=== PATIENT | male | born 1935 | race Caucasian/White ===

== ENCOUNTER → 2017-11-25 07:44 | Outpatient (CLI) | payer BC, SELFPAY ==
[2017-11-25 09:45] LABS: Alanine Aminotransferase 28 IU/L (21-72); Albumin Globulin Ratio 1.6 (1.0-2.8); Alkaline Phosphatase 47 U/L (38-126); Aspartate Aminotransferase 30 IU/L (17-59); BUN Creatinine Ratio 14.4 (6-22); Bilirubin Total 0.9 mg/dL (0.2-1.3); Blood Urea Nitrogen 13 mg/dL (9-20); Carbon Dioxide 33 mmol/L (22-32); Chloride 104 mmol/L (98-107); Cholesterol 119 mg/dL (140-199); Estimated Glomerular Filt Rate > 60.0 mL/min (>60); Globulin 2.5 g/dL (1.7-4.1); Glucose 89 mg/dL (80-110); HDL Cholesterol 34 mg/dL (40-60); HEMOLYSIS < 15 (0-50); LDL Cholesterol Calculated 67 mg/dL (<100); Potassium 3.9 mmol/L (3.4-5.1); Sodium 144 mmol/L (137-145); Total Protein 6.5 g/dL (6.3-8.2); Triglycerides 92 mg/dL (35-150)
[2017-11-25 10:59] LABS: TSH w/ Reflex to FT4 0.02 uIU/mL (0.47-4.68)
[2017-11-25 11:29] LABS: Free T4, Direct Thyroxine 1.54 ng/dL (0.78-2.19)
== END ==
PROVIDERS: PCP Family Medicine; Visit Provider Family Medicine
DX: I10 Essential (primary) hypertension (principal); E03.9 Hypothyroidism, unspecified; E78.5 Hyperlipidemia, unspecified
CPT/HCPCS: 36415; 80053; 80061; 84439; 84443

== ENCOUNTER → 2018-02-09 14:51 | Outpatient (CLI) | payer BC, SELFPAY ==
--- NOTE | 2018-02-09 14:54 | DI.RAD.S_ITS ---
PROCEDURE: XR RIBS LT MIN 3V W CXR1V INDICATIONS: S/p fall with pain in ribcage TECHNIQUE: 3 views of the left ribs were acquired, along with a single view chest. COMPARISON: [facility], , CHEST 2 VIEW, 05/14/2015, 12:30. FINDINGS: Surgical changes and devices: None. Bones and chest wall: Mildly displaced left sixth rib fracture is present. No suspicious bony lesions. Overlying soft tissues appear unremarkable. Lungs and pleura: There is a right hemidiaphragm elevation. No pleural effusions or pneumothorax. Lungs appear clear. Mediastinum: Mediastinal contours appear normal. Heart size is normal. IMPRESSION: Mildly displaced left sixth rib fracture. Dictated by: Keaton Nicole M.D. on 02/09/2018 at 17:10 Approved by: Keaton Nicole M.D. on 02/09/2018 at 17:12
== END ==
PROVIDERS: PCP Family Medicine; Visit Provider Registered Nurse
DX: S22.32XA Fracture of one rib, left side, initial encounter for closed fracture (principal); R07.81 Pleurodynia; W19.XXXA Unspecified fall, initial encounter
CPT/HCPCS: 71101

== ENCOUNTER → 2018-03-02 11:15 | Outpatient (CLI) | payer BC, SELFPAY ==
[2018-03-02 12:54] LABS: TSH w/ Reflex to FT4 < 0.02 uIU/mL (0.47-4.68)
[2018-03-02 13:19] LABS: Free T4, Direct Thyroxine 1.98 ng/dL (0.78-2.19)
== END ==
PROVIDERS: PCP Family Medicine; Visit Provider Family Medicine
DX: E03.9 Hypothyroidism, unspecified (principal)
CPT/HCPCS: 36415; 84439; 84443

== ENCOUNTER → 2018-04-06 08:45 | Outpatient (CLI) | payer BC, SELFPAY ==
[2018-04-06 10:16] LABS: TSH w/ Reflex to FT4 0.63 uIU/mL (0.47-4.68)
[2018-04-09 17:33] LABS: Testosterone Free 54.1 pg/mL (30.0-135.0); Testosterone Total 529 ng/dL (250-1100)
== END ==
PROVIDERS: PCP Family Medicine; Visit Provider Family Medicine
DX: E03.9 Hypothyroidism, unspecified (principal); N52.9 Male erectile dysfunction, unspecified
CPT/HCPCS: 36415; 84402; 84403; 84443

== ENCOUNTER → 2018-06-03 08:09 | Outpatient (CLI) | payer BC, SELFPAY ==
--- NOTE | 2018-06-03 | DI.US.S_ITS ---
PROCEDURE: US RENAL COMPLETE INDICATIONS: NEOPLASM OF LEFT AND RIGHT KIDNEY TECHNIQUE: Real-time scanning was performed of the kidneys and bladder, with image documentation. COMPARISON: [facility], CT, ABDOMEN W&WO CONTRAST, 03/03/2016, 14:52. [facility], US, RENAL COMPLETE, 02/22/2016, 11:20. [facility], US, RENAL COMPLETE, 08/23/2015, 7:47. [facility], US, RENAL COMPLETE, 09/26/2016, 10:00. [facility], US, RENAL COMPLETE, 07/20/2017, 10:22. FINDINGS: Kidneys: Kidneys are normal in size. Right kidney measures 10.9 cm long; left kidney measures 11.1 cm long. Right renal cortical thickness is 1.7 cm; left renal cortical thickness is 1.6 cm. Renal cortical echotexture is normal. No hydronephrosis or nephrolithiasis. Solid hypoechoic mass involving the anterior midportion of the right kidney unchanged measuring 1.7 x 1.9 x 1.8 cm. Previously visualized subcentimeter mass involving the inferior pole of the left kidney is not definitively identified on today's exam. Bladder: Pre-void bladder volume is 71 mL. Post-void residual is 0 mL. Pre-void images demonstrate no intraluminal masses or stones. On pre-void images, bilateral ureteral jets are noted with color Doppler interrogation. (Of note, ureteral jets may not be detectable in up to 25% of cases due to insufficient differences in specific gravity between ureteral and bladder urine). Miscellaneous: No free pelvic fluid. IMPRESSION: 1. Stable appearance of solid hypoechoic mass involving the right kidney and the previously visualized subcentimeter solid mass involving the left kidney is not definitively seen on today's study. Dictated by: Alvaro Weston [facility] Interpreted: Jean-Paul Vaca MD on 06/03/2018 at 14:31 Approved by: Jean-Paul Vaca M.D. on 06/03/2018 at 15:14
== END ==
PROVIDERS: PCP Family Medicine; Visit Provider Specialist
DX: D49.512 Neoplasm of unspecified behavior of left kidney (principal); D49.511 Neoplasm of unspecified behavior of right kidney
CPT/HCPCS: 76770

== ENCOUNTER → 2019-05-16 11:38 | Outpatient (CLI) | payer BC, SELFPAY ==
[2019-05-16 12:45] LABS: Hematocrit 40.9 % (41-53); Hemoglobin 14.3 g/dL (13.5-17.5); Mean Corpuscular Hemoglobin 32.7 PG (26-34); Mean Corpuscular Volume 93.3 fL (80-100); Platelet Count 204 X10^3/uL (150-400); Red Blood Cell Count 4.38 X10^6/uL (4.5-5.9); White Blood Cell Count 6.5 X10^3/uL (4.5-11.0)
[2019-05-16 12:57] LABS: Neutrophils Absolute Manual 3120 /uL (3000-5900); RBC Morphology Normal Morphology; Total Cells Counted 100
[2019-05-16 13:29] LABS: Alanine Aminotransferase 20 IU/L (<50); Albumin 4.2 g/dL (3.5-5.0); Albumin Globulin Ratio 1.7 (1.0-2.8); Alkaline Phosphatase 48 U/L (38-126); Aspartate Aminotransferase 34 IU/L (17-59); BUN Creatinine Ratio 18.9 (6-22); Bilirubin Total 0.6 mg/dL (0.2-1.3); Blood Urea Nitrogen 17 mg/dL (9-20); Calcium 9.1 mg/dL (8.4-10.2); Carbon Dioxide 30 mmol/L (22-32); Chloride 104 mmol/L (98-107); Cholesterol 109 mg/dL (140-199); Estimated Glomerular Filt Rate > 60.0 mL/min (>60); Globulin 2.5 g/dL (1.7-4.1); Glucose 90 mg/dL (80-110); HDL Cholesterol 31 mg/dL (40-60); HEMOLYSIS < 15 (0-50); LDL Cholesterol Calculated 46 mg/dL (<100); Sodium 139 mmol/L (137-145); Total Protein 6.7 g/dL (6.3-8.2); Triglycerides 162 mg/dL (35-150)
[2019-05-16 14:02] LABS: TSH w/ Reflex to FT4 0.19 uIU/mL (0.47-4.68)
[2019-05-16 14:18] LABS: Vitamin B12 326 pg/mL (239-931)
[2019-05-16 14:28] LABS: Free T4, Direct Thyroxine 1.38 ng/dL (0.78-2.19)
[2019-05-16 16:22] LABS: Vitamin D 25 Hydroxy (D3) 56.3 ng/mL (30.0-100.0)
== END ==
PROVIDERS: PCP Family Medicine; Visit Provider Family Medicine
DX: R41.89 Other symptoms and signs involving cognitive functions and awareness (principal); I10 Essential (primary) hypertension; E55.9 Vitamin D deficiency, unspecified; I25.10 Atherosclerotic heart disease of native coronary artery without angina pectoris; E03.9 Hypothyroidism, unspecified
CPT/HCPCS: 36415; 80053; 80061; 82306; 82607; 84439; 84443; 85025

== ENCOUNTER → 2019-06-13 10:33 | Outpatient (CLI) | payer BC, SELFPAY ==
--- NOTE | 2019-06-13 | DI.US.S_ITS ---
PROCEDURE: US RENAL COMPLETE INDICATIONS: FOLLOWUP ON PRIOR KIDNEY MASSES TECHNIQUE: Real-time scanning was performed of the kidneys and bladder, with image documentation. COMPARISON: [facility], CT, ABDOMEN/PELVIS WITH CONTRAST, 12/06/2013, 7:02. [facility], US, RENAL COMPLETE, 02/22/2016, 11:20. [facility], US, RENAL COMPLETE, 07/20/2017, 10:22. [facility], , US RENAL COMPLETE, 06/03/2018, 8:36. FINDINGS: Kidneys: Kidneys are normal in size. Right kidney measures 9.6 cm long; left kidney measures 10.5 cm long. Right renal cortical thickness is 1.9 cm; left renal cortical thickness is 2.2 cm. Renal cortical echotexture is normal. No hydronephrosis or nephrolithiasis. No significant change in appearance or size of hypoechoic mass involving the right kidney measuring 2.2 x 1.9 x 1.8 cm. Rounded hyper echoic focus involving the cortex of the interpolar left kidney unchanged from prior examinations measuring 0.8 x 0.7 x 0.8 cm. Bladder: Pre-void bladder volume is 96 mL. Post-void residual is 20 mL. Pre-void images demonstrate no intraluminal masses or stones. On pre-void images, bilateral ureteral jets are noted with color Doppler interrogation. (Of note, ureteral jets may not be detectable in up to 25% of cases due to insufficient differences in specific gravity between ureteral and bladder urine). Miscellaneous: No free pelvic fluid. IMPRESSION: 1. No significant interval change in appearance or size of hypoechoic mass involving the right kidney and echogenic focus involving the inferior pole of the left kidney. Dictated by: Alvaro Weston [facility] Interpreted: Aly Montoya MD on 06/13/2019 at 12:07 Approved by: Aly Montoya M.D. on 06/14/2019 at 8:10
== END ==
PROVIDERS: PCP Family Medicine; Referring Provider Specialist; Visit Provider Specialist
DX: N28.9 Disorder of kidney and ureter, unspecified (principal)
CPT/HCPCS: 76770

== ENCOUNTER 2019-06-29 14:30 | Outpatient (RCR) | payer BC, SELFPAY ==
--- NOTE | 2019-05-31 16:51 | ST.OPIE ---
Visit Care Team Role Provider Type Citlalli Daly DO Attending Provider Physician Primary Care Provider Specialty: Family Practice Address: [address] [place] [address], [address], [place], [address] Email: [email or web address] Speech-Language Pathology Initial Evaluation MANAGER HAIR Cognitive/Memory Evaluation Start: 05/30/19 08:37 Freq: Status: Active Protocol: Document 05/31/19 08:37 TYRESE (Rec: 05/30/19 08:51 TYRESE [email or web address]) Evaluation of Cognition Session Time Visit Start Time 12:30 Visit Stop Time 13:30 Total Visit Minutes 60 Visit Information Visit Number Initial Evaluation Plan of Care Dates 05/30/19 - 08/22/19 Next Note Type Next Note Type Treatment Note Referral Referring Physician Dr. Daly Reason for Referral Cognitive decline Evaluation Assessment Type Cognitive-Linguistic Past Medical History Patient History This pleasant 84-yr-old male, who goes by RollCall ([email or web address]), attended memory screening on 05/17/19 provided at [facility] with this MANAGER HAIR. He c/o decline in memory primarily related to name recall. Most notably, however, he had an episode where he pulled into a gas station he does not typically use and could not recall what to do to put gas in his car. He drove away, then recalled steps, and filled his car at a different gas station. He reported this was an isolated incident and that he has had no other episodes of confusion ; however, this single episode is of great concern to him. During screening, the pt scored 17/30 on SLUMS screening tool, which is consistent with dementia. Outpatient treatment was recommended and orders received. Hearing Hearing Level Impaired Auditory History Pt has noticed steady decline over the past several years. 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 - Informal Assessment Receptive Language Normal Yes Expressive Language Normal Yes Articulation Normal Yes Formal Assessment Standardized Test Scales of Cognitive Communication Assessment Administration Complete Raw Score 84 Percentile Rank 12 Results SCAN Index: 78 Degree of Severity: Mild Oral Expression 100% Orientation 100% Memory 63% Speech Comprehension 100% Reading Comprehension 92% Writing 100% Attention 81% Problem Solving 87% - Cognition - Memory - Findings Cognitive/Memory Impressions Mild cognitive communication impairment primarily in areas of short-term/working memory, consistent with pt complaints. Treatment Goals Short Term Goals 1. The pt will collaborate with MANAGER HAIR to determine modifications to functional environment to increase ability to recall important information using external memory tools. 2. The pt will establish and follow routines in 80% of opportunities to reduce misplacement of belongings in his functional environment. 3. The pt will establish and use compensatory/internal memory strategies with 80% acc , min cues to recall information and maintain/ increase independence in completion of ADLs. Care Home Goals 1. Using routines and internal strategies independently as needed, the pt will demonstrate memory for daily activities WFL, as measured by pt/family report and clinical judgment. Total Time Full Evaluation Time 95
--- NOTE | 2019-06-21 17:27 | ST.OPTN ---
Visit Care Team Role Provider Type Citlalli Daly DO Attending Provider Physician Primary Care Provider Address: [address] [place] [address], [facility], [place], [address] FUEL OPERATOR Treatment Note FUEL OPERATOR Treatment Note Start: 05/30/19 08:37 Freq: Status: Active Protocol: Document 06/21/19 17:26 TYRESE (Rec: 06/21/19 17:27 [facility] [email or web address]) Speech Pathology Treatment Note Visit Type Note Type Administrative Note Subjective Observations/Patient Presentation The pt did not appear for his treatment session. He called afterward and apologized for missing and confirmed he would attend next scheduled session .
--- NOTE | 2019-06-29 16:28 | ST.OPTN ---
Visit Care Team Role Provider Type Citlalli Daly DO Attending Provider Physician Primary Care Provider Address: [address] [place] [address], [address], [place], [address] COLOR RECEIVER Treatment Note COLOR RECEIVER Treatment Note Start: 05/30/19 08:37 Freq: Status: Active Protocol: Document 06/29/19 15:19 TYRESE (Rec: 06/29/19 15:26 TYRESE [email or web address]) Speech Pathology Treatment Note Session Time Visit Start Time 14:30 Visit Stop Time 15:15 Total Visit Minutes 45 Visit Information Visit Number 05/20 Plan of Care Dates 05/30/19 - 08/22/19 Insurance Information Federal Setting Treatment Setting Outpatient Care Visit Type Note Type Treatment Note Next Note Type Next Note Type Treatment Note General Information General Information This pleasant 84-yr-old male, who goes by Seeq, attended memory screening on 05/17/19 provided at [facility] with this COLOR RECEIVER. He c/o decline in memory primarily related to name recall. Most notably, however, he had an episode where he pulled into a gas station he does not typically use and could not recall what to do to put gas in his car. He drove away, then recalled steps, and filled his car at a different gas station. He reported this was an isolated incident and that he has had no other episodes of confusion ; however, this single episode is of great concern to him. During screening, the pt scored 17/30 on SLUMS screening tool, which is consistent with dementia. Outpatient treatment was recommended and orders received. Subjective Identification Type Name,ID Card Observations/Patient Presentation Pt arrived on time. He had first gone to the [facility] and was redirected to the clinic. No new complaints. Chief Complaint(s) Cognitive Additional Areas of Concern Memory Patient Knowledge/Awareness of COLOR RECEIVER Role Good in Treatment Objective Short Term Goals 1. The pt will collaborate with COLOR RECEIVER to determine modifications to functional environment to increase ability to recall important information using external memory tools. 2. The pt will establish and follow routines in 80% of opportunities to reduce misplacement of belongings in his functional environment. 3. The pt will establish and use compensatory/internal memory strategies with 80% acc , min cues to recall information and maintain/ increase independence in completion of ADLs. Half-Way Goals 1. Using routines and internal strategies independently as needed, the pt will demonstrate memory for daily activities WFL, as measured by pt/family report and clinical judgment. Treatment Activities Educated pt on assessment results and POC targeting external and internal memory tools and strategies. Pt verbalized agreement. Pt identified calendar, sticky notes at computer, and shopping lists as effective external tools he uses. Identified memory problems including misplacing personal items and recalling last names of friends. He denied word finding difficulties. Initiated establishment of new routines in placing glasses, keys and wallet in designated places to avoid losing them. ( Glasses next to sink by shower ; keys and wallet by phone in kitchen) This was provided to pt in writing. Assessment Patient Response to Treatment Good Rehab Potential Good Impairments Identified Attention,Cognitive-Linguistic Skills,Memory - Short Term, Memory - Working Assessment of Improvement The pt was receptive to education and feedback and participated well in identifying challenges and establishing new routine. Reviewed with Patient Goals,Progress Being Made,Home Exercise Program Patient/Caregiver Understanding Excellent Plan Frequency of Treatment Once a Week Length of Session 45 Minutes Treatment Emphasis Next Session F/U on new external tools; Initiate association strategies Therapeutic Contents Client Education,Cognitive- Linguistic Training,Home Exercise Program Provided Patient/Caregiver Instruction Home Exercise Program,Plan of Care,Questions/Concerns Therapy Recommendations Continue with Current Program
--- NOTE | 2019-07-05 12:56 | ST.OPDS ---
Visit Care Team Role Provider Type Citlalli Daly DO Attending Provider Physician Primary Care Provider Address: [address] [place] [address], [address], [place], [address] FILLER SHAKER Treatment Note FILLER SHAKER Treatment Note Start: 05/30/19 08:37 Freq: Status: Active Protocol: Document 07/05/19 12:47 TYRESE (Rec: 07/05/19 12:56 TYRESE [email or web address]) Speech Pathology Treatment Note Visit Information Plan of Care Dates 05/30/19 - 08/22/19 Insurance Information [facility] Treatment Setting Outpatient Care Visit Type Note Type Discharge Summary General Information General Information This pleasant 84-yr-old male, who goes by [email or web address], attended memory screening on 05/17/19 provided at [facility] with this FILLER SHAKER. He c/o decline in memory primarily related to name recall. Most notably, however, he had an episode where he pulled into a gas station he does not typically use and could not recall what to do to put gas in his car. He drove away, then recalled steps, and filled his car at a different gas station. He reported this was an isolated incident and that he has had no other episodes of confusion ; however, this single episode is of great concern to him. During screening, the pt scored 17/30 on SLUMS screening tool, which is consistent with dementia. Outpatient treatment was recommended and orders received. Subjective Observations/Patient Presentation Pt called clinic and requested to discharge from services. FILLER SHAKER called and talked to pt, who stated he has too many medical appts and associated costs at this time. He was appreciative of information obtained during treatment. Chief Complaint(s) Cognitive Additional Areas of Concern Memory Patient Knowledge/Awareness of FILLER SHAKER Role Good in Treatment Objective Short Term Goals 1. The pt will collaborate with FILLER SHAKER to determine modifications to functional environment to increase ability to recall important information using external memory tools. 2. The pt will establish and follow routines in 80% of opportunities to reduce misplacement of belongings in his functional environment. 3. The pt will establish and use compensatory/internal memory strategies with 80% acc , min cues to recall information and maintain/ increase independence in completion of ADLs. Nuclear Logging Engineer Goals 1. Using routines and internal strategies independently as needed, the pt will demonstrate memory for daily activities WFL, as measured by pt/family report and clinical judgment. Assessment Patient Response to Treatment Good Impairments Identified Attention,Cognitive-Linguistic Skills,Memory - Short Term, Memory - Working Assessment of Improvement Course of treatment included evaluation and one treatment session. His current memory challenges appear to only minimally impact his ADLs. His experience of greatest concern occurred when he became significantly disoriented when at a gas station he does not typically used, to the point that he needed to leave the station and was able to re-orient and use a different gas station. Per pt report that was an isolated incident. All other experiences, such as occasional difficulty recalling names and misplacing items, are typical of natural aging process. Plan Therapy Recommendations Discharge from Speech Therapy
== END 2019-07-07 12:54 ==
LOC: SP 14:30
PROVIDERS: PCP Family Medicine; Visit Provider Family Medicine
DX: R41.89 Other symptoms and signs involving cognitive functions and awareness (principal)
CPT/HCPCS: 96125; 97129; 97130

== ENCOUNTER → 2019-07-21 11:17 | Outpatient (CLI) | payer BC, SELFPAY ==
[2019-07-21 12:49] LABS: TSH w/ Reflex to FT4 3.16 uIU/mL (0.47-4.68)
== END ==
PROVIDERS: PCP Family Medicine; Referring Provider Family Medicine; Visit Provider Family Medicine
DX: E03.9 Hypothyroidism, unspecified (principal)
CPT/HCPCS: 36415; 84443

== ENCOUNTER 2020-02-15 15:22 | Emergency (ER) | payer BC, SELFPAY ==
[2020-02-15] VITALS (11 sets, daily range): BP systolic 116–182; BP diastolic 68–94; PULSE 76–102; RESP 13–29; TEMP 36.4; O2SAT 95–98; BMI 26.5
--- NOTE | 2020-02-15 15:34 | DI.RAD.S_ITS ---
PROCEDURE: XR CHEST 1V INDICATIONS: chest pain TECHNIQUE: One view of the chest was acquired. COMPARISON: [facility], , CHEST 1 VIEW, 03/30/2015, 6:44. [facility], , XR RIBS LT MIN 3V W CXR1V, 02/09/2018, 14:36. [facility], CHEST 2 VIEW, 05/14/2015, 12:30. FINDINGS: Surgical changes and devices: Post CABG changes are seen. Lungs and pleura: On this semiupright portable chest examination, no large pneumothorax or large pleural effusions are seen. No focal infiltrates are seen. Mediastinum: The cardiac contours are within normal limits. The aorta demonstrates calcification and tortuosity. Bones and chest wall: Age-appropriate bony degenerative changes are seen. No suspicious bony lesions. A remote, healed left lateral rib fracture can be seen. Overlying soft tissues appear unremarkable. IMPRESSION: Portable chest within normal limits. Postoperative and degenerative changes are seen. Dictated by: Pietro Gusman M.D. on 02/15/2020 at 15:02 Approved by: Pietro Gusman M.D. on 02/15/2020 at 15:03
[2020-02-15 15:51] LABS: Add Manual Diff / Slide Review NO; Basophils Absolute Auto 100 /uL (0-100); Basophils Percent Auto 0.8 % (0-2); Eosinophils Absolute Auto 200 /uL (0-450); Eosinophils Percent Auto 2.7 % (2-4); Hematocrit 42.6 % (41-53); Hemoglobin 14.6 g/dL (13.5-17.5); Lymphocytes Absolute Auto 2800 /uL (1100-4500); Lymphocytes Percent Auto 31.6 % (25-40); Mean Corpuscular HGB Conc 34.4 % (30-36); Mean Corpuscular Hemoglobin 32.4 PG (26-34); Mean Corpuscular Volume 94.3 fL (80-100); Monocytes Absolute Auto 900 /uL (0-900); Monocytes Percent Auto 10.4 % (3-14); Neutrophils Absolute Auto 4800 /uL (1500-7000); Neutrophils Percent Auto 54.5 % (50-75); Platelet Count 223 X10^3/uL (150-400); Red Blood Cell Count 4.52 X10^6/uL (4.5-5.9); Red Cell Distribution Width 13.5 % (11.6-14.8); White Blood Cell Count 8.8 X10^3/uL (4.5-11.0)
--- NOTE | 2020-02-15 15:58 | PC.NURSE ---
Has been having heart burn for several days, saw PCP and sent to ER for new onset AFIB. Denies chest pain or SOB. Patient states heartburn comes on in the evening and seems to ease up for bedtime.
--- NOTE | 2020-02-15 16:07 | ED.CHESTPAIN ---
HPI - Chest Pain General Chief Complaint: Chest Pain Stated Complaint: new onset AFIB, with heart burn Time Seen by Provider: 02/15/20 15:44 Source: patient Mode of arrival: Wheelchair Limitations: no limitations History of Present Illness HPI narrative: Patient is an 84-year-old male. History of reflux disease sent over by his primary doctor's office for evaluation after he was found to be in new onset AFib. He went to go see his doctor today because he states that for the past 3-4 days in the afternoon between 1600 hours and 2000 hours he was having what he describes as his heartburn. He states that his normal medications were not helping. He states that it resolved at about 0800 hours at night. Does not seem to be associated with eating or position or movement. He went to see his doctor today regarding this. They obtained an EKG and found that he was in atrial fibrillation. His rate was less than 100. Patient denies any chest pain or shortness of breath. Denies any palpitations or lightheadedness. Has never been in atrial fibrillation in the past. He was sent here for further evaluation Related Data Home Medications Medication Instructions Recorded Confirmed cholecalciferol (vitamin D3) 25 1,000 unit PO DAILY 11/24/17 02/15/20 mcg (1,000 unit) capsule aspirin 81 mg tablet,delayed 81 mg PO DAILY 11/14/19 02/15/20 release coenzyme Q10 100 mg capsule 100 mg PO DAILY 01/17/20 02/15/20 krill oil 500 mg capsule mg PO 01/17/20 02/15/20 tamsulosin 0.4 mg capsule 0.8 mg PO BEDTIME 01/25/20 02/15/20 levothyroxine 112 mcg tablet 112 mcg PO tab 02/15/20 02/15/20 Previous Rx's Medication Instructions Recorded esomeprazole magnesium 20 mg 20 mg PO DAILY #90 cap 07/18/19 capsule,delayed release metoprolol succinate 25 mg 25 mg PO DAILY #90 tab 10/18/19 tablet,extended release 24 hr rosuvastatin 20 mg tablet 20 mg PO DAILY #90 tab 11/02/19 hydrocortisone 1 %-iodoquinol 1 % 1 applictn TOP TID #60 gram 11/17/19 topical cream in packet amlodipine 5 mg tablet 5 mg PO DAILY #90 tab 01/17/20 rivaroxaban [Xarelto] 20 mg PO QPM #30 tab 02/15/20 Allergies Allergy/AdvReac Type Severity Reaction Status Date / Time lovastatin [LOVASTATIN] AdvReac Intermediate MUSCLE Verified 02/15/20 14:34 ACHING Review of Systems Constitutional Constitutional: Denies fever(s) and Denies headache(s) ENT Ears, Nose, Mouth, and Throat: Denies headache(s) Cardiovascular Cardiovascular: Denies chest pain, Denies rapid heart rate, Denies irregular heart rhythm, Denies lightheadedness and Denies dyspnea Respiratory Respiratory: Denies dyspnea Gastrointestinal Gastrointestinal: Denies abdominal pain and Denies melena Comments: Reflux disease Genitourinary Genitourinary: Denies dysuria Genitourinary: Denies dysuria Musculoskeletal Musculoskeletal: Denies arthralgias and Denies myalgias Integumentary/Breasts Skin/Breast: Denies rash Neurologic Neurologic: Denies behavioral changes and Denies headache(s) Psychiatric Psychiatric: Denies behavioral changes Hematologic/Lymphatic Hematologic/Lymphatic: Denies easy bleeding and Denies easy bruising Allergic/Immunologic Allergic/Immunologic: Denies urticaria Patient History Medical History Bilateral renal cysts (Acute) CAD (coronary artery disease) (Chronic) Chronic back pain (Chronic ~2005) Hearing deficit (Chronic) Heart attack (Acute) Vision disorder (Chronic) Surgical History Anesthesia (Resolved) History of coronary artery bypass, five (Resolved ~2010) History of knee replacement, total (Resolved ~2005) History of spinal surgery (Resolved ~2007) Family History Father Hypertension Heart disease Social History marital status: Smoking Status: Never smoker alcohol intake: current (1 per day) substance use type: does not use Smoking Status: Never smoker alcohol intake frequency: 0-2 drinks per day Alcohol type: wine Substance Use Type: does not use Exam Initial Vital Signs Initial Vital Signs: Vital Signs Temperature 97.6 F 02/15/20 15:31 Pulse Rate 90 02/15/20 15:31 Respiratory Rate 18 02/15/20 15:31 Blood Pressure 120/68 02/15/20 15:31 Pulse Oximetry 97 02/15/20 15:31 Const General: cooperative and comfortable Limitations: mental status not altered HENMT Head: normal to inspection and normocephalic Resp Effort & Inspection: normal respiratory effort Auscultation: clear to auscultation bilaterally Cardio Rate: regular rate Rhythm: abnormal rhythm Pulses: radial pulses present GI Inspection: non-distended Palpation: soft Skin Lesions: no lesions Rashes: no rashes Neuro General: patient alert and patient awake Cognition: normal cognition Speech: speech normal Extrem General: normal to inspection and capillary refill normal Psych Appearance: grossly normal and well kempt Scores CHADS-VASc Congestive heart failure: no Hypertension: yes Age 75 years or older: yes Diabetes mellitus: no Stroke, TIA, or TE: no Vascular disease: yes Age 65 to 74 years: no Sex category (female): Male CHADS-VASc Score: 4 GCS Spencer coma scale eye opening: Spontaneous Spencer coma scale verbal response: Orientated [place]oa coma scale motor response: Obey commands Cocoa coma scale total score: 15 Course Orders Ordered: ED Orders 02/15/20 15:34 XR chest 1V Stat EKG-12 Lead Stat 02/15/20 15:39 Complete Blood Count AUTO DIFF Stat Comprehensive Metabolic Panel Stat Lipase Stat Partial Thromboplastin Time Stat Prothrombin Time INR Stat Troponin & CK Cardiac Panel Stat 02/15/20 17:48 Troponin I Stat Discontinued Medications Rivaroxaban (Xarelto) 20 mg PO NOW ONE Stop: 02/15/20 18:43 Vital Signs Vital signs: Vital Signs - 8 hr 02/15/20 15:31 02/15/20 15:54 02/15/20 16:00 Temperature 97.6 F Pulse Rate 90 89 82 Respiratory Rate 18 20 13 Blood Pressure 120/68 122/72 Pulse Oximetry 97 96 97 02/15/20 16:30 02/15/20 17:00 02/15/20 17:30 Temperature Pulse Rate 84 78 102 H Respiratory Rate 25 H 19 24 Blood Pressure 135/71 118/74 Pulse Oximetry 95 96 98 02/15/20 17:31 02/15/20 18:00 02/15/20 18:01 Temperature Pulse Rate 88 76 81 Respiratory Rate 29 H 19 17 Blood Pressure 182/94 H 119/73 Pulse Oximetry 97 98 97 MDM - Chest Pain Lab Data Attestation: I reviewed the patient's lab results. Result diagrams: 02/15/20 15:39 02/15/20 15:39 Labs: Lab Results 02/15/20 02/15/20 02/15/20 Range/Units 15:39 15:39 15:39 WBC 8.8 (4.5-11.0) X10^3/uL RBC 4.52 (4.5-5.9) X10^6/uL Hgb 14.6 (13.5-17.5) g/dL Hct 42.6 (41-53) % MCV 94.3 (80-100) fL MCH 32.4 (26-34) PG MCHC 34.4 (30-36) % RDW 13.5 (11.6-14.8) % Plt Count 223 (150-400) X10^3/uL Neut % (Auto) 54.5 (50-75) % Lymph % (Auto) 31.6 (25-40) % Brooke % (Auto) 10.4 (3-14) % Eos % (Auto) 2.7 (2-4) % Baso % (Auto) 0.8 (0-2) % Neut # (Auto) 4800 (0060-6261) /uL Lymph # (Auto) 2800 (4663-1330) /uL Brooke # (Auto) 900 (0-900) /uL Eos # (Auto) 200 (0-450) /uL Baso # (Auto) 100 (0-100) /uL PT 12.2 (10.1-12.7) SECONDS INR 1.1 (0.9-1.3) APTT 31 (26.4-36.2) SECONDS Sodium 138 (137-145) mmol/L Potassium 3.9 (3.4-5.1) mmol/L Chloride 103 (98-107) mmol/L Carbon Dioxide 30 (22-32) mmol/L BUN 18 (9-20) mg/dL Creatinine 0.97 (0.66-1.25) mg/dL Estimated GFR > 60.0 (>60) mL/min BUN/Creatinine Ratio 18.6 (6-22) Glucose 123 H (80-110) mg/dL Calcium 9.1 (8.4-10.2) mg/dL Total Bilirubin 0.6 (0.2-1.3) mg/dL AST 31 (17-59) IU/L ALT 18 (<50) IU/L Alkaline Phosphatase 55 (38-126) U/L Total Creatine Kinase 133 (55-170) U/L CK-MB (CK-2) 2.03 (<2.37) ng/mL CK-MB (CK-2) Rel Index 1.5 (1.5-5.0) % Troponin I < 0.012 (0.01-0.034) ng/mL Total Protein 6.7 (6.3-8.2) g/dL Albumin 3.9 (3.5-5.0) g/dL Globulin 2.8 (1.7-4.1) g/dL Albumin/Globulin Ratio 1.4 (1.0-2.8) Lipase 118 (23-300) U/L 02/15/20 Range/Units 17:48 WBC (4.5-11.0) X10^3/uL RBC (4.5-5.9) X10^6/uL Hgb (13.5-17.5) g/dL Hct (41-53) % MCV (80-100) fL MCH (26-34) PG MCHC (30-36) % RDW (11.6-14.8) % Plt Count (150-400) X10^3/uL Neut % (Auto) (50-75) % Lymph % (Auto) (25-40) % Brooke % (Auto) (3-14) % Eos % (Auto) (2-4) % Baso % (Auto) (0-2) % Neut # (Auto) (6552-8652) /uL Lymph # (Auto) (2216-6483) /uL Brooke # (Auto) (0-900) /uL Eos # (Auto) (0-450) /uL Baso # (Auto) (0-100) /uL PT (10.1-12.7) SECONDS INR (0.9-1.3) APTT (26.4-36.2) SECONDS Sodium (137-145) mmol/L Potassium (3.4-5.1) mmol/L Chloride (98-107) mmol/L Carbon Dioxide (22-32) mmol/L BUN (9-20) mg/dL Creatinine (0.66-1.25) mg/dL Estimated GFR (>60) mL/min BUN/Creatinine Ratio (6-22) Glucose (80-110) mg/dL Calcium (8.4-10.2) mg/dL Total Bilirubin (0.2-1.3) mg/dL AST (17-59) IU/L ALT (<50) IU/L Alkaline Phosphatase (38-126) U/L Total Creatine Kinase (55-170) U/L CK-MB (CK-2) (<2.37) ng/mL CK-MB (CK-2) Rel Index (1.5-5.0) % Troponin I < 0.012 (0.01-0.034) ng/mL Total Protein (6.3-8.2) g/dL Albumin (3.5-5.0) g/dL Globulin (1.7-4.1) g/dL Albumin/Globulin Ratio (1.0-2.8) Lipase (23-300) U/L Imaging Data Chest x-ray: Radiologist's Impression: [place] [address] XRay Report Signed Patient: Thomas AnnMR#: [id number] : 5Acct:[id number] Age/Sex: 84 / MDate of Service: 02/15/20 Loc: ED Accession Number: [id number] Procedure: XR chest 1V Ordering Provider: Cale Pulliam D.O. PROCEDURE: XR CHEST 1V INDICATIONS: chest pain TECHNIQUE: One view of the chest was acquired. COMPARISON: [facility], CHEST 1 VIEW, 03/30/2015, 6:44. [facility], XR RIBS LT MIN 3V W CXR1V, 02/09/2018, 14:36. [facility], CHEST 2 VIEW, 05/14/2015, 12:30. FINDINGS: Surgical changes and devices: Post CABG changes are seen. Lungs and pleura: On this semiupright portable chest examination, no large pneumothorax or large pleural effusions are seen. No focal infiltrates are seen. Mediastinum: The cardiac contours are within normal limits. The aorta demonstrates calcification and tortuosity. Bones and chest wall: Age-appropriate bony degenerative changes are seen. No suspicious bony lesions. A remote, healed left lateral rib fracture can be seen. Overlying soft tissues appear unremarkable. IMPRESSION: Portable chest within normal limits. Postoperative and degenerative changes are seen. Dictated by: Pietro Gusamn M.D. on 02/15/2020 at 15:02 Approved by: Pietro Gusman M.D. on 02/15/2020 at 15:03 ECG Data Attestation: I personally reviewed and interpreted this ECG as follows: Prior ECG tracings: not available for review Interpretation: AFib Ventricular rate is 79 Normal axis Normal QRS Normal QTC No ST T wave changes MDM Narrative Medical decision making narrative: Patient's troponins negative x2. EKG is AFib but no signs of ischemic changes. No headache. No shortness of breath. I do suspect that his chest discomfort is most likely reflux disease based on his history and physical. He is found to be in atrial fibrillation. This is new for him. He is rate controlled. On known how long he has been in AFib. Not a candidate for cardioversion. Patient does have a chads Vasc score of 4. We did discuss his risk and benefits of placing him on anticoagulation and I feel that he should be done to decrease his risk of stroke. I did discuss his bleeding risk with him. He has no murmurs. 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 We discussed other things he can do to help with his reflux disease. Informed him of this changes or worsens in any way that he needs to return to the emergency department. He expressed understanding and agreement. Discharge Plan Departure Patient Disposition: Home Clinical Impression: A-fib Qualifiers: Atrial fibrillation type: unspecified Qualified Code(s): I48.91 - Unspecified atrial fibrillation Instructions: DI for Atrial Fibrillation Activity Restrictions/Additional Instructions: Recommend that tomorrow you contact your business partner for a follow-up. Take the blood thinner like we discussed. This medication was electronically transmitted to [facility]. Also take the other reflux medications like we discussed as well. Return to the emergency department for any new or worsening symptoms Prescriptions: New Xarelto 20 mg tablet 20 mg PO QPM Qty: 30 RF: 0 No Action coenzyme Q10 [Co Q-10] 100 mg capsule 100 mg PO DAILY RF: 0 krill oil 500 mg capsule PO RF: 0 esomeprazole magnesium 20 mg capsule,delayed release(DR/EC) 20 mg PO DAILY Qty: 90 RF: 3 metoprolol succinate 25 mg tablet extended release 24 hr 25 mg PO DAILY Qty: 90 RF: 3 rosuvastatin 20 mg tablet 20 mg PO DAILY Qty: 90 RF: 1 amlodipine 5 mg tablet 5 mg PO DAILY Qty: 90 RF: 3 tamsulosin 0.4 mg capsule 0.8 mg PO BEDTIME RF: 0 cholecalciferol (vitamin D3) 1,000 unit capsule 1,000 unit PO DAILY RF: 0 levothyroxine 112 mcg tablet 112 mcg PO RF: 0 aspirin [Adult Aspirin Regimen] 81 mg tablet,delayed release (DR/EC) 81 mg PO DAILY RF: 0 Dermazene 1-1 % cream in packet 1 applictn TOP TID Qty: 60 RF: 0 Referrals: Citlalli Daly DO [Primary Care Provider] -
[2020-02-15 16:09] LABS: INR 1.1 (0.9-1.3); Prothrombin Time 12.2 SECONDS (10.1-12.7)
[2020-02-15 16:12] LABS: PTT Partial Thromboplastin Tim 31 SECONDS (26.4-36.2)
[2020-02-15 16:19] LABS: Alanine Aminotransferase 18 IU/L (<50); Albumin 3.9 g/dL (3.5-5.0); Albumin Globulin Ratio 1.4 (1.0-2.8); Alkaline Phosphatase 55 U/L (38-126); Aspartate Aminotransferase 31 IU/L (17-59); BUN Creatinine Ratio 18.6 (6-22); Bilirubin Total 0.6 mg/dL (0.2-1.3); Blood Urea Nitrogen 18 mg/dL (9-20); Calcium 9.1 mg/dL (8.4-10.2); Carbon Dioxide 30 mmol/L (22-32); Chloride 103 mmol/L (98-107); Creatine Kinase 133 U/L (55-170); Estimated Glomerular Filt Rate > 60.0 mL/min (>60); Globulin 2.8 g/dL (1.7-4.1); Glucose 123 mg/dL (80-110); HEMOLYSIS 34 (0-50); Lipase 118 U/L (23-300); Potassium 3.9 mmol/L (3.4-5.1); Sodium 138 mmol/L (137-145); Total Protein 6.7 g/dL (6.3-8.2)
[2020-02-15 16:31] LABS: Troponin I < 0.012 ng/mL (0.01-0.034)
[2020-02-15 16:34] LABS: CKMB % Relative Index 1.5 % (1.5-5.0); Creatine Kinase MB 2.03 ng/mL (<2.37)
[2020-02-15 18:23] LABS: Troponin I < 0.012 ng/mL (0.01-0.034)
[2020-02-15] MEDS: RIVAROXABAN 10 MG TABLET 20 MG PO (19:06)
== END 2020-02-15 19:18 | disposition home or self-care (01) ==
PROVIDERS: Emergency Provider Emergency Medicine; PCP Family Medicine
DX: I48.91 Unspecified atrial fibrillation (principal)
CPT/HCPCS: 36415; 71045; 80053; 82550; 82553; 83690; 84484; 85025; 85610; 85730; 93005; 99284

== ENCOUNTER → 2020-04-10 12:20 | Outpatient (CLI) | payer BC, SELFPAY ==
--- NOTE | 2020-04-10 12:25 | DI.RAD.S_ITS ---
PROCEDURE: XR CLAVICLE RT INDICATIONS: r/o bony abnormality TECHNIQUE: 2 views of the clavicle were acquired. COMPARISON: None. FINDINGS: Bones: No fractures or dislocations. No suspicious bony lesions. Soft tissues: No suspicious soft tissue calcifications. IMPRESSION: No trauma found. 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 No ligamentous laxity is seen. Dictated by: Aly Montoya M.D. on 04/10/2020 at 13:00 Approved by: Aly Montoya M.D. on 04/10/2020 at 13:00
--- NOTE | 2020-04-10 12:25 | DI.RAD.S_ITS ---
PROCEDURE: XR SHOULDER RT MIN 2V INDICATIONS: r/o bony abnormality TECHNIQUE: 3 views of the shoulder were acquired. COMPARISON: None. FINDINGS: Bones: No fractures or dislocations. No suspicious bony lesions. Visualized ribs appear intact. Soft tissues: No suspicious soft tissue calcifications. IMPRESSION: A slight degree of AC joint osteoarthritis is noted, no trauma found. Dictated by: Aly Montoya M.D. on 04/10/2020 at 12:59 Approved by: Aly Montoya M.D. on 04/10/2020 at 13:00
--- NOTE | 2020-04-10 12:25 | DI.RAD.S_ITS ---
PROCEDURE: XR HUMERUS RT 2V INDICATIONS: r/o bony abnormality TECHNIQUE: 2 views of the humerus were acquired. COMPARISON: None. FINDINGS: Bones: No fractures or dislocations. No suspicious bony lesions. Soft tissues: No suspicious soft tissue calcifications. IMPRESSION: The humerus appears free of trauma or other bony abnormality. Dictated by: Aly Montoya M.D. on 04/10/2020 at 13:00 Approved by: Aly Montoya M.D. on 04/10/2020 at 13:01
== END ==
PROVIDERS: PCP Family Medicine; Referring Provider Physician Assistant; Visit Provider Physician Assistant
DX: S49.91XA Unspecified injury of right shoulder and upper arm, initial encounter (principal); W19.XXXA Unspecified fall, initial encounter
CPT/HCPCS: 73000; 73030; 73060

== ENCOUNTER → 2020-05-10 11:32 | Outpatient (CLI) | payer BC, SELFPAY ==
--- NOTE | 2020-05-10 11:33 | DI.MRI.S_ITS ---
PROCEDURE: MR SHOULDER RT WO CON INDICATIONS: Complete rotator cuff tear or rupture TECHNIQUE: Noncontrast oblique coronal T2 fast spin echo with fat saturation, oblique sagittal T1 spin echo and T2 fast spin echo with fat saturation, axial T1 spin echo and T2 fast spin echo with fat saturation through the shoulder. COMPARISON: None. FINDINGS: Image quality: Excellent. Rotator cuff: Large full-thickness tear involving the supraspinatus and infraspinatus tendons measuring at least 4.3 cm in the AP dimension as seen on sagittal pulse sequences, and approximately 3.8 cm on coronal pulse sequences. Severe subscapularis tendinopathy thickening and interstitial tearing. There is also partial-thickness articular and bursal sided tear. Teres minor tendinopathy and interstitial tearing extending to the musculotendinous junction, and low-grade bursal surface fraying. Atrophy of the supraspinatus and infraspinatus muscles, with diffuse fatty infiltration Bones and bursae: No bone marrow contusions or fractures. Degenerative cystic change involving the anterior aspect of the greater tuberosity. Severe hypertrophic acromioclavicular joint degeneration. Severe glenohumeral degenerative joint disease is also noted, Scattered degenerative subchondral sclerosis and spurring. Acromion demonstrates conventional anatomy, without an os acromiale. Capsule and soft tissues: Moderate joint effusion. Labrum: Circumferential macerated labral tear/advanced degeneration. This finding likely chronic. Long head of the biceps tendon not well seen suggestive of severe tendinopathy of the intra-articular segment, versus rupture. Please correlate with exam findings.. The rotator interval appears normal, without fibrosis. Coracohumeral ligament intact. IMPRESSION: Large full-thickness tear involving the supraspinatus and infraspinatus tendons as detailed above Severe subscapularis tendinopathy and interstitial tearing with partial thickness articular and bursal sided tear. Teres minor tendinopathy with interstitial tearing and low-grade bursal surface fraying. Atrophy of the supraspinatus and infraspinatus muscles. Severe degenerative joint disease Circumferential labral degenerative tear, chronic. Long head biceps tendon not well seen which raises the possibility of rupture versus severe tendinopathy. Recommend correlation with exam findings. Moderate joint effusion. Dictated by: Spike Adair M.D. on 05/10/2020 at 13:25 Approved by: Spike Adair M.D. on 05/10/2020 at 13:34
== END ==
PROVIDERS: PCP Family Medicine; Referring Provider Orthopaedic Surgery; Visit Provider Orthopaedic Surgery
DX: M75.121 Complete rotator cuff tear or rupture of right shoulder, not specified as traumatic (principal); M19.011 Primary osteoarthritis, right shoulder; S43.491A Other sprain of right shoulder joint, initial encounter; M25.411 Effusion, right shoulder
CPT/HCPCS: 73221

== ENCOUNTER → 2020-06-01 11:48 | Outpatient (CLI) | payer BC, SELFPAY ==
[2020-06-01 12:51] LABS: Add Manual Diff / Slide Review NO; Basophils Absolute Auto 100 /uL (0-100); Basophils Percent Auto 0.7 % (0-2); Eosinophils Absolute Auto 200 /uL (0-450); Eosinophils Percent Auto 2.8 % (2-4); Hematocrit 43.6 % (41-53); Hemoglobin 14.9 g/dL (13.5-17.5); Lymphocytes Absolute Auto 2200 /uL (1100-4500); Lymphocytes Percent Auto 29.4 % (25-40); Mean Corpuscular HGB Conc 34.1 % (30-36); Mean Corpuscular Hemoglobin 32.1 PG (26-34); Monocytes Absolute Auto 600 /uL (0-900); Monocytes Percent Auto 8.1 % (3-14); Neutrophils Absolute Auto 4400 /uL (1500-7000); Platelet Count 264 X10^3/uL (150-400); Red Blood Cell Count 4.63 X10^6/uL (4.5-5.9); Red Cell Distribution Width 13.6 % (11.6-14.8); White Blood Cell Count 7.5 X10^3/uL (4.5-11.0)
[2020-06-01 13:00] LABS: Blood Urea Nitrogen 16 mg/dL (9-20); Calcium 9.3 mg/dL (8.4-10.2); Carbon Dioxide 31 mmol/L (22-32); Chloride 102 mmol/L (98-107); Estimated Glomerular Filt Rate > 60.0 mL/min (>60); Glucose 101 mg/dL (80-110); HEMOLYSIS < 15 (0-50); Potassium 4.2 mmol/L (3.4-5.1); Sodium 137 mmol/L (137-145)
== END ==
PROVIDERS: PCP Family Medicine; Referring Provider Internal Medicine Cardiovascular Disease; Visit Provider Internal Medicine Cardiovascular Disease
DX: I10 Essential (primary) hypertension (principal)
CPT/HCPCS: 36415; 80048; 85025

== ENCOUNTER → 2020-06-18 08:57 | Outpatient (CLI) | payer BC, SELFPAY ==
--- NOTE | 2020-06-18 08:57 | DI.US.S_ITS ---
PROCEDURE: US EXTREMITY NONVASC LOWER RT INDICATIONS: BALANTITIS TECHNIQUE: Real-time scanning was performed of the area of clinical concern, with image documentation. Color Doppler was also utilized. COMPARISON: None. FINDINGS: Scanning is performed at the area of clinical concern at the tip of the penis. No abnormal vascularity can be seen. No drainable abscess can be seen. IMPRESSION: Negative for abscess in this patient with a given clinical history of balanitis. Dictated by: Pietro Gusman M.D. on 06/18/2020 at 14:27 Approved by: Pietro Gusman M.D. on 06/18/2020 at 14:29
== END ==
PROVIDERS: PCP Family Medicine; Referring Provider Family Medicine; Visit Provider Specialist
DX: N48.1 Balanitis (principal)
CPT/HCPCS: 76882

== ENCOUNTER → 2020-06-26 10:44 | Outpatient (CLI) | payer BC, SELFPAY ==
--- NOTE | 2020-06-26 10:45 | DI.US.S_ITS ---
PROCEDURE: US RENAL COMPLETE INDICATIONS: CYST TECHNIQUE: Real-time scanning was performed of the kidneys and bladder, with image documentation. COMPARISON: [facility], RENAL COMPLETE, 07/20/2017, 10:22. [facility], RENAL COMPLETE, 09/26/2016, 10:00. [facility], RENAL COMPLETE, 06/03/2018, 8:36. [facility], RENAL COMPLETE, 06/13/2019, 11:17. FINDINGS: Kidneys: Kidneys are normal in size. Right kidney measures 9.3 cm long; left kidney measures 10.1 cm long. Right renal cortical thickness is 1.8 cm; left renal cortical thickness is 1.6 cm. Renal cortical echotexture is normal. No hydronephrosis or nephrolithiasis. On the right, there is a solid mass with internal vascularity seen anteriorly within the mid kidney that measures 2.3 x 1.8 x 2.3 cm, which previously measured 2.2 x 1.9 x 1.8 cm. The previously seen cyst at the inferior pole of the left kidney is not definitely seen. Bladder: Poorly evaluated, as it is not distended. Neither ureteral jet can be seen. Miscellaneous: No free pelvic fluid. IMPRESSION: Continued slight interval growth of the known solid mass involving the right kidney, which now measures 2.3 x 1.8 x 2.3 cm. The previously seen left renal cyst is not definitely seen. Dictated by: Pietro Gusman M.D. on 06/26/2020 at 10:55 Approved by: Pietro Gusman M.D. on 06/26/2020 at 10:57
== END ==
PROVIDERS: PCP Family Medicine; Referring Provider Specialist; Visit Provider Specialist
DX: N28.1 Cyst of kidney, acquired (principal); N28.89 Other specified disorders of kidney and ureter
CPT/HCPCS: 76770

== ENCOUNTER 2021-01-04 10:59 | Emergency (ER) | payer BC, SELFPAY ==
[2021-01-04 11:02] VITALS: BP 127/91; PULSE 85; RESP 24; TEMP 36.1; O2SAT 98; BMI 25.1
--- NOTE | 2021-01-04 11:07 | DI.RAD.S_ITS ---
PROCEDURE: XR HUMERUS RT 2V INDICATIONS: bruising, unsure of injury TECHNIQUE: 2 views of the humerus were acquired. COMPARISON: [facility], MR, MR SHOULDER RT WO CON, 05/10/2020, 12:35. [facility], CR, XR HUMERUS RT 2V, 04/10/2020, 12:33. FINDINGS: Bones: No fractures or dislocations. No suspicious bony lesions. The visualized ribs appear intact. Age-appropriate bony degenerative changes are seen. There is narrowing of the acromial humeral interspace of 2 mm, with the humeral head high-riding within the glenoid fossa. Soft tissues: No suspicious soft tissue calcifications. The visualized lung demonstrates an unremarkable appearance. IMPRESSION: No displaced fracture can be seen. No dislocation. Degenerative changes are seen, including a full-thickness rotator cuff tear, which is much better seen on prior MRI. Dictated by: Pietro Gusman M.D. on 01/04/2021 at 10:52 Approved by: Pietro Gusman M.D. on 01/04/2021 at 10:54
--- NOTE | 2021-01-04 12:44 | ED_ITS ---
HPI - Extremity Injury (Upper) <Alvaro Mg PA-C - Last Filed: 01/04/21 12:52> General Chief Complaint: Extremity Injury, Upper Stated Complaint: bruising on shoulder/blood thinners/dementia Time Seen by Provider: 01/04/21 12:04 Source: patient Mode of arrival: Ambulatory History of Present Illness HPI narrative: Thomas presents today with chief complaint of bruise to his right upper arm that he 1st noticed about 4 days ago. Reports that this occurred after her some new exercises during his physical therapy session for his rotator cuff injury. He denies any significant pain, decreased range of motion, chest pain, shortness of breath, shoulder pain, numbness or tingling in his arm, fever, or any other acute concerns or complaints at this time. He is taking rivaroxaban as well as a baby aspirin daily for is atrial fibrillation. He denies any history blood clots. He denies any recent trauma to the shoulder that could have contributed to his bruising. Related Data Home Medications Medication Instructions Recorded Confirmed cholecalciferol (vitamin D3) 25 1,000 unit PO DAILY 11/24/17 07/04/20 mcg (1,000 unit) capsule coenzyme Q10 100 mg capsule (Co 100 mg PO DAILY 01/17/20 07/04/20 Q-10) krill oil 500 mg capsule mg PO 01/17/20 07/04/20 tamsulosin 0.4 mg capsule 0.8 mg PO BEDTIME 01/25/20 07/04/20 eliquis PO 04/10/20 07/04/20 Previous Rx's Medication Instructions Recorded metoprolol succinate 25 mg 25 mg PO DAILY #90 tab 10/18/19 tablet,extended release 24 hr hydrocortisone 1 %-iodoquinol 1 % 1 applictn TOP TID #60 gram 11/17/19 topical cream in packet (Dermazene) amlodipine 5 mg tablet 5 mg PO DAILY #90 tab 01/17/20 rivaroxaban 20 mg tablet (Xarelto) 20 mg PO QPM #30 tab 02/15/20 rosuvastatin 20 mg tablet 20 mg PO DAILY #90 tab 06/04/20 esomeprazole magnesium 20 mg 20 mg PO DAILY #90 cap 07/11/20 capsule,delayed release levothyroxine 112 mcg tablet See Rx Instructions .ROUTE 12/06/20 .COMPLEX #90 tab Allergies Allergy/AdvReac Type Severity Reaction Status Date / Time lovastatin [LOVASTATIN] AdvReac Intermediate MUSCLE Verified 01/04/21 11:03 ACHING Review of Systems <Alvaro Mg PA-C - Last Filed: 01/04/21 12:52> Review of Systems Narrative: As per HPI Patient History <Alvaro Mg PA-C - Last Filed: 01/04/21 12:52> Medical History (Updated 01/04/21 @ 12:49 by Alvaro Mg PA-C) Bilateral renal cysts BPH w urinary obs/LUTS CAD (coronary artery disease) Chronic back pain (~2005) Fall Hearing deficit Heart attack Right renal mass Right shoulder injury Vision disorder Surgical History Anesthesia History of coronary artery bypass, five (~2010) History of knee replacement, total (~2005) History of spinal surgery (~2007) Family History Father Hypertension Heart disease Social History marital status: Smoking Status: Never smoker alcohol intake: current (1 per day) substance use type: does not use Smoking Status: Never smoker alcohol intake frequency: 0-2 drinks per day Alcohol type: wine Substance Use Type: does not use Exam <Alvaro Mg PA-C - Last Filed: 01/04/21 12:52> Narrative Exam Narrative: Exam Narrative: Const General: cooperative, healthy appearing, comfortable, no acute distress, well developed and well groomed Nutritional Appearance: average body habitus Orientation: alert and oriented x3 HENMT Head: normal to inspection and atraumatic Ears: hearing grossly normal bilaterally Nose: external nose normal and nares normal Face and sinus: normal facial exam Neck Neck: normal visual inspection and supple Resp Effort & Inspection: normal respiratory effort, able to speak in complete sentences, no audible wheezes, not labored, no nasal flaring and no respiratory distress Neuro General: alert, oriented x3, gait normal, tone normal and moves all extremities Cognition: normal cognition Speech: speech normal Gait: normal gait Extremities Upper extremities exposed. Large yellow bruise noted to the lower deltoid of the right upper arm. No significant tenderness to the touch. No underlying fluctuance or induration. No bony tenderness. He has full range of motion of his upper extremities. Radial pulses are equal bilaterally. Psych Appearance: grossly normal and well kempt Mental Status: mental status grossly normal Speech and Movement: speech and movement normal Mood: congruent mood Affect: normal affect Initial Vital Signs Initial Vital Signs: Vital Signs Temperature 97.0 F L 01/04/21 11:02 Pulse Rate 85 01/04/21 11:02 Respiratory Rate 24 01/04/21 11:02 Blood Pressure 127/91 H 01/04/21 11:02 Pulse Oximetry 98 01/04/21 11:02 <Crystal Bennett DO - Last Filed: 01/09/21 07:33> Initial Vital Signs Initial Vital Signs: Vital Signs Temperature 97.0 F L 01/04/21 11:02 Pulse Rate 85 01/04/21 11:02 Respiratory Rate 24 01/04/21 11:02 Blood Pressure 127/91 H 01/04/21 11:02 Pulse Oximetry 98 01/04/21 11:02 Course <Alvaro Mg PA-C - Last Filed: 01/04/21 12:52> Orders Ordered: ED Orders 01/04/21 11:07 XR humerus RT 2V Stat Vital Signs Vital signs: Vital Signs - 8 hr 01/04/21 11:02 Temperature 97.0 F L Pulse Rate 85 Respiratory Rate 24 Blood Pressure 127/91 H Pulse Oximetry 98 <Crystal Bennett DO - Last Filed: 01/09/21 07:33> Orders Ordered: ED Orders 01/04/21 11:07 XR humerus RT 2V Stat Vital Signs Vital signs: Vital Signs - 8 hr 01/04/21 11:02 Temperature 97.0 F L Pulse Rate 85 Respiratory Rate 24 Blood Pressure 127/91 H Pulse Oximetry 98 MDM - Extremity Injury (Upper) <KULDIP Bautista Last Filed: 01/04/21 12:52> MDM Narrative Medical decision making narrative: Differential diagnosis considered includes te ndon injury, ligament injury, DVT, systemic coagulopathy. He does not have any other symptoms that would suggest a DVT of the upper extremity. He is also anticoagulated with rivaroxaban. Because this happened that if they following some new physical therapy exercises, I suspect that this is related to some micro trauma in his shoulder. He does not have any significant tenderness and this appears to be healing well. He does not have any other widespread bruising or skin changes that would suggest a systemic problem. Strict ER return precautions were discussed with the patient and his . Patient verbalizes understanding and agrees to plan and has no further concerns at this time. Thank you A [id number] system was used with the dictation of this note. Please disregard any spelling or grammatical errors. Discharge Plan Departure Patient Disposition: Home Clinical Impression: Arm bruise Qualifiers: Encounter type: initial encounter Laterality: right Qualified Code(s): S40.021A - Contusion of right upper arm, initial encounter Activity Restrictions/Additional Instructions: Please apply ice to the affected area. I expect this to improve over the next few days. If you have worsening pain, decreased range of motion, shortness of breath, numbness or tingling in your arms, or have any worsening symptoms please return for re-evaluation. Thank you Alvaro Mg PA-C Prescriptions: No Action coenzyme Q10 [Co Q-10] 100 mg capsule 100 mg PO DAILY RF: 0 krill oil 500 mg capsule PO RF: 0 eliquis PO RF: 0 metoprolol succinate 25 mg tablet extended release 24 hr 25 mg PO DAILY Qty: 90 RF: 3 amlodipine 5 mg tablet 5 mg PO DAILY Qty: 90 RF: 3 tamsulosin 0.4 mg capsule 0.8 mg PO BEDTIME RF: 0 rosuvastatin 20 mg tablet 20 mg PO DAILY Qty: 90 RF: 3 esomeprazole magnesium 20 mg capsule,delayed release(DR/EC) 20 mg PO DAILY Qty: 90 RF: 3 levothyroxine 112 mcg tablet See Rx Instructions .ROUTE .COMPLEX Qty: 90 RF: 0 cholecalciferol (vitamin D3) 1,000 unit capsule 1,000 unit PO DAILY RF: 0 Xarelto 20 mg tablet 20 mg PO QPM Qty: 30 RF: 0 Dermazene 1-1 % cream in packet 1 applictn TOP TID Qty: 60 RF: 0 Referrals: Citlalli Daly DO [Primary Care Provider] - <Crystal Bennett DO - Last Filed: 01/09/21 07:33> Cosign ED Attending Lisaature Attestation: I was immediately available in the department for consultation. Documentation has been reviewed.
== END 2021-01-04 12:50 | disposition home or self-care (01) ==
PROVIDERS: Emergency Provider Physician Assistant; PCP Family Medicine
DX: S40.021A Contusion of right upper arm, initial encounter (principal); W22.8XXA Striking against or struck by other objects, initial encounter
CPT/HCPCS: 73060; 99283

== ENCOUNTER → 2021-01-11 11:09 | Outpatient (CLI) | payer BC, SELFPAY | PROVIDERS: PCP Family Medicine; Referring Provider Family Medicine; Visit Provider Family Medicine | DX: E03.9 Hypothyroidism, unspecified (principal) | CPT/HCPCS: 36415; 84443 ==

== ENCOUNTER → 2021-07-16 10:35 | Outpatient (CLI) | payer BC, SELFPAY ==
--- NOTE | 2021-07-16 10:37 | DI.US.S_ITS ---
PROCEDURE: US RENAL COMPLETE INDICATIONS: renal mass TECHNIQUE: Real-time scanning was performed of the kidneys and bladder, with image documentation. COMPARISON: [facility], , US RENAL COMPLETE, 06/26/2020, 11:26. FINDINGS: Kidneys: Kidneys are normal in size. Right kidney measures 9.2 cm long; left kidney measures 11.0 cm long. Right renal cortical thickness is 1.6 cm; left renal cortical thickness is 2.1 cm. Right renal mass to measures 2.9 x 2.0 x 2.5 cm, previously 2.3 x 1.8 x 2.3 cm Bladder: Decompressed. No other uterine all jet noted. Prostate is enlarged at 5.0 x 5.6 x 5.6 cm Miscellaneous: No free pelvic fluid. IMPRESSION: Continued growth of right renal solid mass lesion Approved by: Tonny Boyle M.D. on 07/16/2021 at 15:48
== END ==
PROVIDERS: PCP Family Medicine; Referring Provider Specialist; Visit Provider Specialist
DX: N28.89 Other specified disorders of kidney and ureter (principal); N40.1 Benign prostatic hyperplasia with lower urinary tract symptoms; N13.8 Other obstructive and reflux uropathy
CPT/HCPCS: 76770

== ENCOUNTER → 2021-07-25 10:04 | Outpatient (CLI) | payer BC, SELFPAY ==
[2021-07-25 11:13] LABS: Add Manual Diff / Slide Review NO; Basophils Absolute Auto 100 /uL (0-100); Basophils Percent Auto 0.9 % (0-2); Eosinophils Absolute Auto 300 /uL (0-450); Eosinophils Percent Auto 3.9 % (2-4); Hematocrit 39.9 % (41-53); Hemoglobin 13.6 g/dL (13.5-17.5); Lymphocytes Absolute Auto 2300 /uL (1100-4500); Lymphocytes Percent Auto 34.6 % (25-40); Mean Corpuscular HGB Conc 34.2 % (30-36); Mean Corpuscular Hemoglobin 31.9 PG (26-34); Mean Corpuscular Volume 93.3 fL (80-100); Monocytes Absolute Auto 600 /uL (0-900); Monocytes Percent Auto 8.4 % (3-14); Neutrophils Absolute Auto 3400 /uL (1500-7000); Neutrophils Percent Auto 52.2 % (50-75); Platelet Count 227 X10^3/uL (150-400); Red Blood Cell Count 4.27 X10^6/uL (4.5-5.9); Red Cell Distribution Width 13.6 % (11.6-14.8); White Blood Cell Count 6.5 X10^3/uL (4.5-11.0)
[2021-07-25 11:29] LABS: BUN Creatinine Ratio 16.9 (6-22); Blood Urea Nitrogen 15 mg/dL (9-20); Carbon Dioxide 27 mmol/L (22-32); Chloride 105 mmol/L (98-107); Cholesterol 127 mg/dL (140-199); Estimated Glomerular Filt Rate > 60.0 mL/min (>60); Glucose 90 mg/dL (80-110); HDL Cholesterol 38 mg/dL (40-60); HEMOLYSIS < 15 (0-50); LDL Cholesterol Calculated 75 mg/dL (<100); Potassium 4.2 mmol/L (3.4-5.1); Sodium 139 mmol/L (137-145); Triglycerides 70 mg/dL (35-150)
== END ==
PROVIDERS: Specialist; PCP Family Medicine; Referring Provider Internal Medicine Cardiovascular Disease; Visit Provider Internal Medicine Cardiovascular Disease
DX: E78.5 Hyperlipidemia, unspecified (principal); I48.0 Paroxysmal atrial fibrillation; I10 Essential (primary) hypertension; N28.89 Other specified disorders of kidney and ureter
CPT/HCPCS: 36415; 80048; 80061; 85025

== ENCOUNTER → 2021-07-29 10:57 | Outpatient (CLI) | payer BC, SELFPAY ==
--- NOTE | 2021-07-29 11:28 | DI.CT.S_ITS ---
PROCEDURE: CT ABDOMEN WO/W CON INDICATIONS: enlarging right renal mass TECHNIQUE: Optional 5 mm thick noncontrast images acquired from the diaphragm to the iliac crests. After the administration of intravenous contrast, 5 mm thick images again acquired from the diaphragm to the iliac crests in the arterial and urographic phases. 5 mm thick coronal and sagittal reformats were then acquired. For radiation dose reduction, the following was used: automated exposure control, adjustment of mA and/or kV according to patient size. COMPARISON: , US, US RENAL COMPLETE, 07/16/2021, 11:06. , CT, ABDOMEN W&WO CONTRAST, 03/03/2016, 14:52. FINDINGS: Image quality: Excellent. Lung bases: Lung bases are clear. Heart size is normal. Postsurgical changes are partially imaged from median sternotomy and CABG. Genitourinary: Postsurgical changes are seen from prior partial resection at the inferior pole of left kidney. An adjacent heterogeneously enhancing exophytic mass is seen measuring approximately 1.6 x 1.6 x 1.3 cm, minimally increased in size when compared to the prior CT from 03/03/2016 when it measured approximately 1.4 cm in diameter. Exophytic mass arising from the posterolateral inferior pole of the right kidney measures 2.1 x 1.9 x 2.3 cm, previously measuring 1.7 x 1.[address] from 03/03/2016. No hydronephrosis or renal calculus is seen. No filling defect is seen within the included collecting system on delayed images. Other solid organs: Liver is normal in size and enhancement. A coarse calcification in the posterior right hepatic lobe is considered benign. Gallbladder is unremarkable. Biliary system is non dilated. Pancreas enhances normally. Spleen is normal in size and enhancement. No adrenal nodules. Peritoneum and bowel: Few diverticula are seen in the colon without signs of acute diverticulitis. Bowel loops are otherwise unremarkable. No free fluid or air. Nodes and vessels: No retroperitoneal or mesenteric adenopathy by size criteria. Aorta and inferior vena cava are normal in caliber. Moderate aortic atherosclerotic calcifications. Bones: Postsurgical changes are partially imaged in the lumbar spine from prior laminectomies. Multilevel degenerative changes and degenerative retrolisthesis are seen in the upper lumbar spine. No suspicious osteolytic or osteoblastic lesion is seen. No suspicious bony lesions. No vertebral body compression fractures. Miscellaneous: No ventral hernias. IMPRESSION: Mildly increased size of enhancing masses in the inferior poles of each kidney when compared to the CT from 03/03/2016. Measurements are smaller when compared to the ultrasound from 07/16/2021, likely due to differences in modality and measuring technique. Dictated by: Bar Trevizo M.D. on 07/29/2021 at 17:13 Approved by: Bar Trevizo M.D. on 07/29/2021 at 17:24
== END ==
PROVIDERS: PCP Family Medicine; Referring Provider Specialist; Visit Provider Specialist
DX: N28.89 Other specified disorders of kidney and ureter (principal)
CPT/HCPCS: 74170; Q9967

== ENCOUNTER → 2021-12-12 15:07 | Outpatient (CLI) | payer BC, SELFPAY ==
[2021-12-12 16:00] LABS: Add Manual Diff / Slide Review NO; Basophils Absolute Auto 0 /uL (0-100); Basophils Percent Auto 0.8 % (0-2); Eosinophils Absolute Auto 100 /uL (0-450); Eosinophils Percent Auto 1.7 % (2-4); Hematocrit 40.7 % (41-53); Hemoglobin 14.1 g/dL (13.5-17.5); Lymphocytes Absolute Auto 2100 /uL (1100-4500); Lymphocytes Percent Auto 37.5 % (25-40); Mean Corpuscular HGB Conc 34.6 % (30-36); Mean Corpuscular Hemoglobin 32.6 PG (26-34); Mean Corpuscular Volume 94.4 fL (80-100); Monocytes Absolute Auto 500 /uL (0-900); Monocytes Percent Auto 8.4 % (3-14); Neutrophils Absolute Auto 2900 /uL (1500-7000); Neutrophils Percent Auto 51.6 % (50-75); Platelet Count 207 X10^3/uL (150-400); Red Blood Cell Count 4.31 X10^6/uL (4.5-5.9); Red Cell Distribution Width 14.1 % (11.6-14.8); White Blood Cell Count 5.5 X10^3/uL (4.5-11.0)
[2021-12-12 16:44] LABS: TSH w/ Reflex to FT4 2.78 uIU/mL (0.47-4.68)
[2021-12-12 21:01] LABS: Alanine Aminotransferase 20 IU/L (<50); Albumin Globulin Ratio 1.5 (1.0-2.8); Alkaline Phosphatase 56 U/L (38-126); Aspartate Aminotransferase 30 IU/L (17-59); BUN Creatinine Ratio 18.4 (6-22); Bilirubin Total 0.8 mg/dL (0.2-1.3); Blood Urea Nitrogen 16 mg/dL (9-20); Calcium 8.9 mg/dL (8.4-10.2); Carbon Dioxide 26 mmol/L (22-32); Chloride 104 mmol/L (98-107); Estimated Glomerular Filt Rate > 60 mL/min (>60); Globulin 2.7 g/dL (1.7-4.1); Glucose 94 mg/dL (80-110); HEMOLYSIS < 15 (0-50); Potassium 4.4 mmol/L (3.4-5.1); Sodium 138 mmol/L (137-145); Total Protein 6.7 g/dL (6.3-8.2)
== END ==
PROVIDERS: PCP Family Medicine; Referring Provider Family Medicine; Visit Provider Family Medicine
DX: R63.4 Abnormal weight loss (principal)
CPT/HCPCS: 36415; 80053; 84443; 85025

== ENCOUNTER 2022-01-27 03:18 | Emergency (ER) | payer BC, SELFPAY ==
[2022-01-27 03:28] VITALS: BP 144/72; PULSE 84; RESP 18; TEMP 36.3; O2SAT 98; BMI 24.3
--- NOTE | 2022-01-27 03:50 | ED_ITS ---
HPI - Skin/Abscess/Foreign Bdy General Chief complaint: Skin/Abscess/Foreign Body Stated complaint: scrotom burning up Time Seen by Provider: 01/27/22 03:26 Source: patient and family Mode of arrival: Ambulatory Limitations: no limitations History of Present Illness HPI narrative: 86-year-old male nonsmoker with history of atrial fibrillation on Eliquis presents with his in the chief complaint of a few days of worsening scrotal redness and discomfort. He states that it started about 4 days ago and he 1st noticed that it was quite itchy and then became red and inflamed and now is painful this evening. He denies any systemic complaints such as fever or chills nor nausea or vomiting. He is not dizzy nor weak or lightheaded. He denies any injury or trauma. He denies any swelling. He is had no trouble urinating or with bowel movements. The patient states he has been putting Sensodyne (toothpaste) on his scrotum without relief. Related Data Home Medications Medication Instructions Recorded Confirmed cholecalciferol (vitamin D3) 25 1,000 unit PO DAILY 11/24/17 08/08/21 mcg (1,000 unit) capsule coenzyme Q10 100 mg capsule (Co 100 mg PO DAILY 01/17/20 08/08/21 Q-10) krill oil 500 mg capsule mg PO 01/17/20 08/08/21 Previous Rx's Medication Instructions Recorded metoprolol succinate 25 mg 25 mg PO DAILY #90 tabs 10/18/19 tablet,extended release 24 hr hydrocortisone 1 %-iodoquinol 1 % 1 applictn topical TID #60 grams 11/17/19 topical cream in packet (Dermazene) apixaban 5 mg tablet (Eliquis) 5 mg PO BID #30 tabs 01/11/21 rosuvastatin 20 mg tablet 20 mg PO DAILY #90 tabs 05/13/21 levothyroxine 112 mcg tablet See Rx Instructions .Route 06/28/21 .COMPLEX #90 tabs tamsulosin 0.4 mg capsule 0.8 mg PO BEDTIME #60 caps 10/31/21 pantoprazole 20 mg tablet,delayed 20 mg PO DAILY #90 tabs 12/18/21 release nystatin 100,000 unit/gram topical 1 applic topical BID 7 days #15 01/27/22 ointment grams Allergies Allergy/AdvReac Type Severity Reaction Status Date / Time lovastatin [LOVASTATIN] AdvReac Intermediate MUSCLE Verified 08/08/21 13:01 ACHING Review of Systems Review of Systems Narrative: GENERAL: See HPI HEENT: Denies sinus pain, ear pain, sore throat, difficulty swallowing, dizziness. RESPIRATORY: Denies dyspnea, cough, wheezing, hemoptysis, sputum. CARDIOVASCULAR: Denies chest pain, palpitations, orthopnea, edema, GASTROINTESTINAL: Denies nausea, vomiting, abdominal pain, diarrhea, constipation, melena. : Denies dysuria, frequency, incontinence, hematuria, urinary retention. MUSCULOSKELETAL: denies weakness, joint pain, or bony pain SKIN: See HPI NEUROLOGIC: Denies weakness, headache, numbness, change in speech, confusion, seizures, incoordination. PSYCHIATRIC: No concerning psychosocial issues. 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 Extraoccular muscles are intact bilaterally. There is no subconjunctival hemorrhage or exudate. CHEST: Lungs are clear to auscultation bilaterally and free of wheezes, rales, or rhonchi. Heart rate is regular rhythm, there are no murmurs, clicks, rubs, or gallops. There is no chest wall tenderness. ABD: Abdomen is soft and nontender. There is no guarding or rebound. Bowel sounds are normal in all 4 quadrants. There is no mass or organomegaly. : Moderate scrotal erythema without obvious thickening, induration or fluctuance. No testicular pain EXT: Full painless ROM of all extremities with no loss of sensation or strength. SKIN: Warm, pink, and dry. No erythema or rash Initial Vital Signs Initial Vital Signs: Vital Signs Temperature 97.4 F L 01/27/22 03:28 Pulse Rate 84 01/27/22 03:28 Respiratory Rate 18 01/27/22 03:28 Blood Pressure 144/72 H 01/27/22 03:28 Pulse Oximetry 98 01/27/22 03:28 Oxygen Delivery Method 01/27/22 03:28 Course Orders Ordered: ED Orders 01/27/22 03:41 Wound Culture and Gram Stain Stat Discontinued Medications Nystatin (Nystatin Ointment 15 Applic/Tube Oint...G.) 1 applic TOP NOW ONE Stop: 01/27/22 03:42 Vital Signs Vital signs: Vital Signs - 8 hr 01/27/22 03:28 Temperature 97.4 F L Pulse Rate 84 Respiratory Rate 18 Blood Pressure 144/72 H Pulse Oximetry 98 Oxygen Delivery Method Room Air MDM - Skin/Abscess/Foreign Bdy MDM Narrative Medical decision making narrative: Patient's history and physical are most consistent with a Madeleine infection given it started itchy and now is red, beefy and moist in appearance without induration or fluctuance. There are no systemic findings. I did attempt to obtain culture for completeness, however it seems unlikely given the presentation and the presence of toothpaste. We did attempt to order a dose of nystatin ointment but none is available in the hospital. Patient given return precautions and questions answered to their apparent satisfaction. Prescription sent to [facility] pharmacy Discharge Plan Departure Patient Disposition: Home Clinical Impression: Scrotal infection Instructions: Yeast Infection-Skin Activity Restrictions/Additional Instructions: *You have been diagnosed with [scrotal infection most likely due to Madeleine (yeast)] *What to do: *Please continue to take your regular medications as directed. [x ] New medication prescriptions sent to your pharmacy: [ [facility]] [ ] New medication written as a paper prescription [ ] No new medications given *Please follow up with your primary care provider in 2-3 days, call for an appointment. Let them know you were seen in the Emergency Department and that we ask that you be seen in follow up. We will electronically transmit a record of today's note if your PCP is in our system *Return to Emergency Department if you should have any new, worsening or concerning symptoms, such as [fever greater than 101 F, shaking chills, worsening pain, persistent vomiting or other bothersome symptoms] Prescriptions: New nystatin 100,000 unit/gram ointment 1 applic topical BID 7 Days Qty: 15 0RF No Action Eliquis 5 mg tablet 5 mg PO BID Qty: 30 0RF coenzyme Q10 [Co Q-10] 100 mg capsule 100 mg PO DAILY krill oil 500 mg capsule PO metoprolol succinate 25 mg tablet extended release 24 hr 25 mg PO DAILY Qty: 90 3RF rosuvastatin 20 mg tablet 20 mg PO DAILY Qty: 90 3RF levothyroxine 112 mcg tablet See Rx Instructions .ROUTE .COMPLEX Qty: 90 3RF Dose Instruction: TAKE 1 TABLET BY MOUTH DAILY Rx Instructions: TAKE 1 TABLET BY MOUTH DAILY tamsulosin 0.4 mg capsule 0.8 mg PO BEDTIME Qty: 60 6RF pantoprazole 20 mg tablet,delayed release (DR/EC) 20 mg PO DAILY Qty: 90 3RF cholecalciferol (vitamin D3) 1,000 unit capsule 1,000 unit PO DAILY Dermazene 1-1 % cream in packet 1 applictn TOP TID Qty: 60 0RF Referrals: Citlalli Daly DO [Primary Care Provider] -
== END 2022-01-27 04:01 | disposition home or self-care (01) ==
PROVIDERS: Emergency Provider Emergency Medicine; PCP Family Medicine
DX: N49.2 Inflammatory disorders of scrotum (principal); Z79.01 Long term (current) use of anticoagulants
CPT/HCPCS: 99282

== ENCOUNTER 2022-07-13 14:19 | Emergency (ER) | payer BC, SELFPAY ==
[2022-07-13] VITALS (9 sets, daily range): BP systolic 104–141; BP diastolic 62–78; PULSE 63–78; RESP 18–24; TEMP 36.2; O2SAT 97–98; BMI 23.6
--- NOTE | 2022-07-13 14:36 | DI.RAD.S_ITS ---
PROCEDURE: XR CHEST 1V INDICATIONS: chest pain TECHNIQUE: One view of the chest was acquired. COMPARISON: [facility], CR, XR CHEST 1V, 02/15/2020, 15:35. FINDINGS: Surgical changes and devices: Status post median sternotomy and CABG. Lungs and pleura: Lungs are clear. No pleural effusions or pneumothorax. Mediastinum: Mediastinal contours appear normal. Heart size is normal. Bones and chest wall: No suspicious bony lesions. Overlying soft tissues appear unremarkable. IMPRESSION: No acute cardiopulmonary abnormality. Dictated by: Demond Erickson M.D. on 07/13/2022 at 15:09 Approved by: Demond Erickson M.D. on 07/13/2022 at 15:10
[2022-07-13 15:49] LABS: INR 1.3 (0.9-1.3); Prothrombin Time 14.5 SECONDS (10.1-12.7)
[2022-07-13 15:52] LABS: PTT Partial Thromboplastin Tim 31 SECONDS (26-36)
[2022-07-13 15:54] LABS: Alanine Aminotransferase 20 IU/L (<50); Albumin 4.2 g/dL (3.5-5.0); Albumin Globulin Ratio 1.4 (1.0-2.8); Alkaline Phosphatase 60 U/L (38-126); Aspartate Aminotransferase 28 IU/L (17-59); BUN Creatinine Ratio 16.7 (6-22); Bilirubin Total 0.8 mg/dL (0.2-1.3); Blood Urea Nitrogen 15 mg/dL (9-20); Carbon Dioxide 31 mmol/L (22-32); Chloride 101 mmol/L (98-107); Creatine Kinase 66 U/L (55-170); Estimated Glomerular Filt Rate > 60 mL/min (>60); Globulin 2.9 g/dL (1.7-4.1); Glucose 86 mg/dL (80-110); HEMOLYSIS < 15 (0-50); Lipase 118 U/L (23-300); Magnesium 1.8 mg/dL (1.6-2.3); Sodium 138 mmol/L (137-145); Total Protein 7.1 g/dL (6.3-8.2)
--- NOTE | 2022-07-13 15:58 | ED_ITS ---
HPI - Chest Pain General Chief Complaint: Chest Pain Stated Complaint: chest pains Time Seen by Provider: 07/13/22 15:58 History of Present Illness HPI narrative: Patient 87-year-old male history of atrial fibrillation on Eliquis with history of 5 vessel CABG presenting today with left shoulder pain. He reports that he was just sitting resting weaned his left shoulder and chest area started hurting. It has been constant for the last 4 hours. Nothing makes it better or worse. It does not hurt to breathe or move his arm. It does not go anywhere. He denies any shortness of breath with exertion nausea or vomiting. He denies any injury Related Data Home Medications Medication Instructions Recorded Confirmed cholecalciferol (vitamin D3) 25 1,000 unit PO DAILY 11/24/17 05/16/22 mcg (1,000 unit) capsule coenzyme Q10 100 mg capsule (Co 100 mg PO DAILY 01/17/20 05/16/22 Q-10) krill oil 500 mg capsule mg PO 01/17/20 05/16/22 donepezil 10 mg tablet 10 mg PO DAILY 02/13/22 05/16/22 esomeprazole magnesium 20 mg 20 mg PO DAILY 02/13/22 05/16/22 capsule,delayed release Previous Rx's Medication Instructions Recorded apixaban 5 mg tablet (Eliquis) 5 mg PO BID #30 tabs 01/11/21 rosuvastatin 20 mg tablet 20 mg PO DAILY #90 tabs 05/13/21 levothyroxine 112 mcg tablet See Rx Instructions .Route 06/28/21 .COMPLEX #90 tabs tamsulosin 0.4 mg capsule 0.8 mg PO BEDTIME #60 caps 10/31/21 metoprolol tartrate 25 mg tablet 12.5 mg PO BID #45 tabs 02/13/22 Allergies Allergy/AdvReac Type Severity Reaction Status Date / Time No Known Drug Allergies Allergy Verified 07/13/22 14:36 Review of Systems Review of Systems ROS Unobtainable: All systems reviewed & are unremarkable except as noted in HPI and below Patient History Medical History Atrial fibrillation Bilateral renal cysts Bilateral renal masses BPH w urinary obs/LUTS CAD (coronary artery disease) Chronic back pain (~2005) Hearing deficit Heart attack Right renal mass Vision disorder Surgical History Anesthesia History of coronary artery bypass, five (~2010) History of knee replacement, total (~2005) History of spinal surgery (~2007) Family History Father Hypertension Heart disease Social History marital status: Smoking Status: Never smoker alcohol intake: current substance use type: does not use Smoking Status: Never smoker alcohol intake frequency: 0-2 drinks per day Alcohol type: wine Substance Use Type: does not use Exam Initial Vital Signs Initial Vital Signs: Vital Signs Temperature 97.1 F L 07/13/22 14:31 Pulse Rate 68 07/13/22 14:31 Respiratory Rate 20 07/13/22 14:31 Blood Pressure 131/66 07/13/22 14:31 Pulse Oximetry 98 07/13/22 14:31 Oxygen Delivery Method Room Air 07/13/22 14:31 GENERAL: Alert 87-year-old male and in no acute distress. HEENT: Head atraumatic,EOMI, pupils reactive, face symmetric, moist mucous membranes CARDIOVASCULAR: Irregularly irregular RESPIRATORY: Breath sounds equal bilaterally, no wheezes rales or rhonchi. ABDOMEN: Soft, nontender. Normoactive bowel sounds all 4 quadrants. No guarding or rebound. EXTREMITIES: Normal range of motion, no clubbing or edema. Neurovascularly intact NEUROLOGICAL: Alert and oriented x4. SKIN: Warm, dry, no laceration, no petechiae, no rashes or lesions. Course Orders Ordered: ED Orders 07/13/22 14:36 XR chest 1V Stat EKG-12 Lead Stat 07/13/22 15:34 Complete Blood Count AUTO DIFF Stat Comprehensive Metabolic Panel Stat Lipase Stat Magnesium Stat PTT Partial Thromboplastin Sravan Stat Prothrombin Time INR Stat Troponin & CK Cardiac Panel Stat 07/13/22 16:07 EKG-12 Lead Stat 07/13/22 17:33 Trop I [Troponin I] Stat 07/13/22 17:39 EKG-12 Lead Routine Discontinued Medications Acetaminophen (Acetaminophen 325 Mg Tablet) 650 mg PO NOW ONE Stop: 07/13/22 16:08 Last Admin: 07/13/22 16:18 Dose: 650 mg Documented By: BS Aspirin (Aspirin 81 Mg Chew Tab) 324 mg PO NOW ONE Stop: 07/13/22 14:37 Last Admin: 07/13/22 16:18 Dose: Not Given Documented By: CHIARA Vital Signs Vital signs: Vital Signs - 8 hr 07/13/22 14:31 07/13/22 15:26 07/13/22 15:27 Temperature 97.1 F L Pulse Rate 68 67 73 Respiratory Rate 20 Blood Pressure 131/66 Pulse Oximetry 98 98 98 Oxygen Delivery Method Room Air 07/13/22 15:27 07/13/22 15:30 07/13/22 15:30 Temperature Pulse Rate 76 Respiratory Rate 24 Blood Pressure 135/70 141/68 H Pulse Oximetry 98 Oxygen Delivery Method 07/13/22 16:00 07/13/22 16:00 07/13/22 16:30 Temperature Pulse Rate 65 Respiratory Rate 20 Blood Pressure 104/62 116/70 Pulse Oximetry 97 Oxygen Delivery Method Room Air 07/13/22 16:30 07/13/22 17:00 07/13/22 17:00 Temperature Pulse Rate 64 68 Respiratory Rate 20 24 Blood Pressure 126/74 Pulse Oximetry 98 Oxygen Delivery Method 07/13/22 17:30 07/13/22 17:30 07/13/22 18:40 Temperature Pulse Rate 63 78 Respiratory Rate 18 18 Blood Pressure 122/77 129/78 Pulse Oximetry 97 Oxygen Delivery Method Room Air MDM - Chest Pain Lab Data 07/13/22 15:34 07/13/22 15:34 Labs: Lab Results 07/13/22 07/13/22 07/13/22 Range/Units 15:34 15:34 15:34 WBC 7.0 (4.5-11.0) X10^3/uL RBC 4.56 (4.5-5.9) X10^6/uL Hgb 14.4 (13.5-17.5) g/dL Hct 43.1 (41-53) % MCV 94.5 (80-100) fL MCH 31.7 (26-34) PG MCHC 33.5 (30-36) % RDW 13.3 (11.6-14.8) % Plt Count 229 (150-400) X10^3/uL Neut % (Auto) 49.1 L (50-75) % Lymph % (Auto) 37.6 (25-40) % Boone % (Auto) 9.5 (3-14) % Eos % (Auto) 2.8 (2-4) % Baso % (Auto) 1.0 (0-2) % Neut # (Auto) 3500 (8662-6146) /uL Lymph # (Auto) 2600 (6231-8763) /uL Boone # (Auto) 700 (0-900) /uL Eos # (Auto) 200 (0-450) /uL Baso # (Auto) 100 (0-100) /uL PT 14.5 H (10.1-12.7) SECONDS INR 1.3 (0.9-1.3) APTT 31 (26-36) SECONDS Sodium 138 (137-145) mmol/L Potassium 4.0 (3.4-5.1) mmol/L Chloride 101 (98-107) mmol/L Carbon Dioxide 31 (22-32) mmol/L BUN 15 (9-20) mg/dL Creatinine 0.90 (0.66-1.25) mg/dL Estimated GFR > 60 (>60) mL/min BUN/Creatinine Ratio 16.7 (6-22) Glucose 86 (80-110) mg/dL Calcium 9.0 (8.4-10.2) mg/dL Magnesium 1.8 (1.6-2.3) mg/dL Total Bilirubin 0.8 (0.2-1.3) mg/dL AST 28 (17-59) IU/L ALT 20 (<50) IU/L Alkaline Phosphatase 60 (38-126) U/L Total Creatine Kinase 66 (55-170) U/L CK-MB (CK-2) TNP CK-MB (CK-2) Rel Index TNP Troponin I < 0.012 (0.01-0.034) ng/mL Total Protein 7.1 (6.3-8.2) g/dL Albumin 4.2 (3.5-5.0) g/dL Globulin 2.9 (1.7-4.1) g/dL Albumin/Globulin Ratio 1.4 (1.0-2.8) Lipase 118 (23-300) U/L 07/13/22 Range/Units 17:33 WBC (4.5-11.0) X10^3/uL RBC (4.5-5.9) X10^6/uL Hgb (13.5-17.5) g/dL Hct (41-53) % MCV (80-100) fL MCH (26-34) PG MCHC (30-36) % RDW (11.6-14.8) % Plt Count (150-400) X10^3/uL Neut % (Auto) (50-75) % Lymph % (Auto) (25-40) % Boone % (Auto) (3-14) % Eos % (Auto) (2-4) % Baso % (Auto) (0-2) % Neut # (Auto) (9049-0898) /uL Lymph # (Auto) (4700-7397) /uL Boone # (Auto) (0-900) /uL Eos # (Auto) (0-450) /uL Baso # (Auto) (0-100) /uL PT (10.1-12.7) SECONDS INR (0.9-1.3) APTT (26-36) SECONDS Sodium (137-145) mmol/L Potassium (3.4-5.1) mmol/L Chloride (98-107) mmol/L Carbon Dioxide (22-32) mmol/L BUN (9-20) mg/dL Creatinine (0.66-1.25) mg/dL Estimated GFR (>60) mL/min BUN/Creatinine Ratio (6-22) Glucose (80-110) mg/dL Calcium (8.4-10.2) mg/dL Magnesium (1.6-2.3) mg/dL Total Bilirubin (0.2-1.3) mg/dL AST (17-59) IU/L ALT (<50) IU/L Alkaline Phosphatase (38-126) U/L Total Creatine Kinase (55-170) U/L CK-MB (CK-2) CK-MB (CK-2) Rel Index Troponin I < 0.012 (0.01-0.034) ng/mL Total Protein (6.3-8.2) g/dL Albumin (3.5-5.0) g/dL Globulin (1.7-4.1) g/dL Albumin/Globulin Ratio (1.0-2.8) Lipase (23-300) U/L Imaging Data Chest x-ray: Radiologist's Impression: PROCEDURE:? XR CHEST 1V ? INDICATIONS:? chest pain ? TECHNIQUE:? One view of the chest was acquired.? ? COMPARISON:? [facility], CR, XR CHEST 1V, 02/15/2020, 15:35. ? FINDINGS:? ? Surgical changes and devices:? Status post median sternotomy and CABG. ? Lungs and pleura:? Lungs are clear.? No pleural effusions or pneumothorax.? ? Mediastinum:? Mediastinal contours appear normal.? Heart size is normal.? ? Bones and chest wall:? No suspicious bony lesions.? Overlying soft tissues appear unremarkable.? ? IMPRESSION:? No acute cardiopulmonary abnormality. ? ? ? Dictated by: Demond Erickson M.D. on 07/13/2022 at 15:09 ? ? ECG Data Interpretation: Atrial fibrillation rate 68 ST elevation V2 V3 you from previous EKG no dep ression Repeat EKG is atrial fibrillation rate [address] changes MDM Narrative Medical decision making narrative: Patient is an 87-year-old male with history of atrial fibrillation on Eliquis CABG presenting today with left shoulder pain which is fairly constant in nature ongoing for the last 4 hours. He is 2- troponins no EKG changes and pain is resolved with Tylenol. No electrolyte abnormality no leukocytosis. Pain is really not reproducible but it does not seem severe resolve completely with Tylenol. Not totally convinced that it is acute coronary syndrome, possibly more musculoskeletal although there is no injury. He overall feels better and ready to in able to go home. I discussed with him to follow-up with cardiology and have possibly more testing such as stress test. Discharge Plan Departure Patient Disposition: Home Clinical Impression: Atypical chest pain Instructions: DI for Atypical Chest Pain Activity Restrictions/Additional Instructions: *You have been diagnosed with atypical chest pain *What to do: At this time blood work is overall reassuring. However I do recommend you see your registered nurse hh case manager and talked her PCP in members further cardiac testing *Continue to take medications as directed *Follow up with your primary care provider in 2-3 days or call [phone] *Return to ER if you should have increasing shoulder pain chest pain shortness of breath dizziness or any new, worsening or concerning symptoms Prescriptions: No Action Eliquis 5 mg tablet 5 mg PO BID Qty: 30 0RF esomeprazole magnesium 20 mg capsule,delayed release(DR/EC) 20 mg PO DAILY donepezil 10 mg tablet 10 mg PO DAILY metoprolol tartrate 25 mg tablet 12.5 mg PO BID Qty: 45 2RF coenzyme Q10 [Co Q-10] 100 mg capsule 100 mg PO DAILY krill oil 500 mg capsule PO rosuvastatin 20 mg tablet 20 mg PO DAILY Qty: 90 3RF levothyroxine 112 mcg tablet See Rx Instructions .ROUTE .COMPLEX Qty: 90 3RF Dose Instruction: TAKE 1 TABLET BY MOUTH DAILY Rx Instructions: TAKE 1 TABLET BY MOUTH DAILY tamsulosin 0.4 mg capsule 0.8 mg PO BEDTIME Qty: 60 6RF cholecalciferol (vitamin D3) 1,000 unit capsule 1,000 unit PO DAILY Referrals: Citlalli Daly DO [Primary Care Provider] - Stand Alone Forms: Patient Portal/API
[2022-07-13 15:59] LABS: Add Manual Diff / Slide Review NO; Basophils Absolute Auto 100 /uL (0-100); Eosinophils Absolute Auto 200 /uL (0-450); Eosinophils Percent Auto 2.8 % (2-4); Hematocrit 43.1 % (41-53); Hemoglobin 14.4 g/dL (13.5-17.5); Lymphocytes Absolute Auto 2600 /uL (1100-4500); Lymphocytes Percent Auto 37.6 % (25-40); Mean Corpuscular HGB Conc 33.5 % (30-36); Mean Corpuscular Hemoglobin 31.7 PG (26-34); Mean Corpuscular Volume 94.5 fL (80-100); Monocytes Absolute Auto 700 /uL (0-900); Monocytes Percent Auto 9.5 % (3-14); Neutrophils Absolute Auto 3500 /uL (1500-7000); Neutrophils Percent Auto 49.1 % (50-75); Platelet Count 229 X10^3/uL (150-400); Red Blood Cell Count 4.56 X10^6/uL (4.5-5.9); Red Cell Distribution Width 13.3 % (11.6-14.8)
[2022-07-13 16:06] LABS: Troponin I < 0.012 ng/mL (0.01-0.034)
[2022-07-13] MEDS: ACETAMINOPHEN 325 MG TABLET 650 MG PO (16:18)
[2022-07-13 18:03] LABS: Troponin I < 0.012 ng/mL (0.01-0.034)
== END 2022-07-13 18:41 | disposition home or self-care (01) ==
PROVIDERS: Emergency Provider Emergency Medicine; PCP Family Medicine
DX: R07.89 Other chest pain (principal); I48.91 Unspecified atrial fibrillation; Z79.01 Long term (current) use of anticoagulants
CPT/HCPCS: 36415; 71045; 80053; 82550; 83690; 83735; 84484; 85025; 85610; 85730; 93005; 99284

== ENCOUNTER → 2022-08-25 13:15 | Outpatient (CLI) | payer BC, SELFPAY ==
[2022-08-25 15:46] LABS: Folate 5.4 ng/mL (2.76-20.0); Vitamin B12 524 pg/mL (239-931)
[2022-08-25 16:51] LABS: Vitamin D 25 Hydroxy (D3) 74.9 ng/mL (30.0-100.0)
== END ==
PROVIDERS: PCP Family Medicine; Referring Provider Psychiatry & Neurology Neurology; Visit Provider Psychiatry & Neurology Neurology
DX: R41.3 Other amnesia (principal); E55.9 Vitamin D deficiency, unspecified
CPT/HCPCS: 36415; 82306; 82607; 82746

== ENCOUNTER → 2022-10-09 11:29 | Outpatient (CLI) | payer BC, SELFPAY ==
[2022-10-09 12:29] LABS: Add Manual Diff / Slide Review NO; Basophils Absolute Auto 100 /uL (0-100); Eosinophils Absolute Auto 100 /uL (0-450); Eosinophils Percent Auto 2.6 % (2-4); Hematocrit 41.2 % (41-53); Hemoglobin 14.1 g/dL (13.5-17.5); Lymphocytes Absolute Auto 2300 /uL (1100-4500); Lymphocytes Percent Auto 40.3 % (25-40); Mean Corpuscular HGB Conc 34.2 % (30-36); Mean Corpuscular Hemoglobin 32.1 PG (26-34); Mean Corpuscular Volume 93.8 fL (80-100); Monocytes Absolute Auto 500 /uL (0-900); Neutrophils Absolute Auto 2800 /uL (1500-7000); Neutrophils Percent Auto 48.1 % (50-75); Platelet Count 204 X10^3/uL (150-400); Red Blood Cell Count 4.39 X10^6/uL (4.5-5.9); Red Cell Distribution Width 13.6 % (11.6-14.8); White Blood Cell Count 5.7 X10^3/uL (4.5-11.0)
[2022-10-09 12:43] LABS: INR 1.4 (0.9-1.3); Prothrombin Time 15.6 SECONDS (10.1-12.7)
[2022-10-09 12:58] LABS: BUN Creatinine Ratio 15.4 (6-22); Blood Urea Nitrogen 14 mg/dL (9-20); Calcium 8.8 mg/dL (8.4-10.2); Carbon Dioxide 29 mmol/L (22-32); Chloride 104 mmol/L (98-107); Cholesterol 141 mg/dL (140-199); Estimated Glomerular Filt Rate > 60 mL/min (>60); Glucose 91 mg/dL (80-110); HDL Cholesterol 46 mg/dL (40-60); HEMOLYSIS < 15 (0-50); LDL Cholesterol Calculated 76 mg/dL (<100); Sodium 137 mmol/L (137-145); Triglycerides 95 mg/dL (35-150)
[2022-10-09 13:25] LABS: TSH w/ Reflex to FT4 3.16 uIU/mL (0.47-4.68)
== END ==
PROVIDERS: PCP Family Medicine; Referring Provider Internal Medicine Cardiovascular Disease; Visit Provider Internal Medicine Cardiovascular Disease
DX: I48.0 Paroxysmal atrial fibrillation (principal); E03.9 Hypothyroidism, unspecified; I25.10 Atherosclerotic heart disease of native coronary artery without angina pectoris
CPT/HCPCS: 36415; 80048; 80061; 84443; 85025; 85610

== ENCOUNTER 2023-03-30 12:00 | Outpatient (RCR) | payer BC, SELFPAY ==
--- NOTE | 2023-02-04 16:04 | PT.OIE ---
Current Diagnoses Parkinson's disease (02/04/23) Past Medical History (Last Updated 08/23/22 @ 11:28 by Citlalli Daly DO) Atrial fibrillation Bilateral renal cysts Bilateral renal masses BPH w urinary obs/LUTS CAD (coronary artery disease) Chronic back pain (~2005) Dementia Hearing deficit Heart attack Vision disorder Past Surgical History (Last Reviewed 08/23/22 @ 11:26 by Citlalli Daly DO) Anesthesia History of coronary artery bypass, five (~2010) History of knee replacement, total (~2005) History of spinal surgery (~2007) Visit Care Team Role Provider Type Vidhya Quarles DO Family Provider Physician Primary Care Provider Specialty: Medical Address: [address] [place] [address], [address], [address] Email: [email or web address] Hugo Gonzalez MD Attending Provider Non-Staff Referring Provider Specialty: Neurology Address: [address] [place], [address] Email: Physical Therapy Initial Evaluation PT-OP-A Visit Information Start: 02/04/23 14:39 Freq: Status: Active Protocol: Document 02/04/23 14:49 MB (Rec: 02/04/23 16:04 [id number]) Out-Patient Physical Therapy Visit Information Visit Information Visit Type Initial Evaluation Visit Note Pt goes by Bill. Visit Start Time 14:49 Visit Stop Time 15:49 Total Visit Minutes 60 Visit Number 1 Number of FIELD SERVICE POULTRY TECHNICIAN Visits 0 PT-OP-B Current Condition Start: 02/04/23 14:39 Freq: Status: Active Protocol: Document 02/04/23 14:49 MB (Rec: 02/04/23 16:04 [id number]) Current Condition History of Current Condition Onset Date , Rachel, reports at least 2 years ago for PD diagnosis History of Current Condition , Rachel, provides history and answers most questions. She states that pt was dx with PD about 2 years ago and started Carbidopa Levodopa last summer, about a year ago. Pt states, no when asked if he notices any improvement with the medication. states that he had improvements with shaking. He doesn't spill his tea as much. Pt states that the shaking was the biggest symptom he first noticed and states that he also shuffled his feet. states that he has had 3- 4 falls in the past year. He does have dizziness when he gets up. Pt had PT in the past after knee replacements. They cannot remember anything about it. Pt has not been driving. There are two steps and no rail to enter home. He can use the brick wall. PT notes that has big bruise on her right rastafarian and she reports a fall as well in the past week. She does the driving and the home care tasks. They have lead customer service representative and a yarder operator. There is no family nearby. 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 He has a medication for this as well. He does not talk a lot. states that he has trouble making the words. takes care of all household tasks, managing money, etc. Pt only does his own bathing and dressing and he makes his cereal in the morning. He is able to boil water to make his own tea. Pt denies pain. 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 states that balancing is his biggest problem and that buttoning up shirts is difficult. Pt has history of CABGx5. Treatment Goals Patient/Caregiver Goals Verny: strengthening Bill's legs and balance is scary PT-OP-C Subjective Start: 02/04/23 14:39 Freq: Status: Active Protocol: Document 02/04/23 14:49 MB (Rec: 02/04/23 16:04 MB [id number]) OP-PT Subjective Patient Comments Patient Comments Bill states no when asked if he has goals for physical therapy PT-OP-D Balance Start: 02/04/23 14:39 Freq: Status: Active Protocol: Document 02/04/23 14:49 MB (Rec: 02/04/23 16:04 MB [id number]) Balance Tests Other Other Balance Tests Performed Pt has wide STEPAN and occ leans legs against the mat for static standing and cannot tolerate more narrow STEPAN standing TUG requires 16 sec and pt requires CGA to prevent falling when turning back to chair to sit, SBA for gait Pt performs 12 reps STS without UE support from standard level mat on eval with one LOB and SBA for safety in 30 sec PT-OP-G Mobility & Gait Start: 02/04/23 14:39 Freq: Status: Active Protocol: Document 02/04/23 14:49 MB (Rec: 02/04/23 16:04 [id number]) OP Gait Assessment Gait Gait Assistance Required: Standby Assistance Distance (Feet) 878 Able to Maintain Weight Bearing Status Yes During Gait Gait Deviations General Gait Pattern Festinating,Wide Based Gait Comments Gait Comments Pt requires SBA and one sitting rest break as well as cues for where to gait for 6MWT. He has shuffling stepping with less step- through with right LE PT-OP-H Neuro Start: 02/04/23 14:39 Freq: Status: Active Protocol: Document 02/04/23 14:49 MB (Rec: 02/04/23 16:04 [id number]) Coordination Evaluation Upper Extremity Tests Left Finger to Nose Test Minimal Impairment Pronation/Supination Test Minimal Impairment Right Finger to Nose Test Minimal Impairment Pronation/Supination Test Minimal Impairment Lower Extremity Tests Left Heel on Cortés Test Moderate Impairment Right Heel on Cortés Test Moderate Impairment Vital Signs Comments Vital Signs Comments Positive orthostatic hypotension with the following HR and BR in LUE: supine 136/ 72, 54; standing 108/65, 65; standing 1' 123/68, 61 PT-OP-Q Treatments Start: 02/04/23 14:39 Freq: Status: Active Protocol: Document 02/04/23 14:49 MB (Rec: 02/04/23 16:04 [id number]) Gait Training Gait Activity 6MWT Comments See gait comments for 6MWT on eval, pt gait trains 878 feet and takes one sitting rest break and requires SBA Neuro Re-Education Treatment Balance Activities TUG Comments TUG in 16 sec with CGA to prevent fall with turning to sit in seat 30 sec STS Comments Pt performs 12 reps without UE support and one episode of LOB back on the mat, SBA PT-OP-T Assessment and Plan Start: 02/04/23 14:39 Freq: Status: Active Protocol: Document 02/04/23 14:49 MB (Rec: 02/04/23 16:04 [id number]) Physical Therapy Assessment Rehab Potential Rehabilitation Potential Fair Evaluation Complexity Number of Personal Factors/Comorbidities 1-2 Number of Body Systems Impaired 3 Clinical Presentation at Evaluation Evolving Impairments Impairments Activity Tolerance,Balance, Coordination,Functional Activities,Functional Mobility ,Gait,Posture,ROM,Strength, Transfers Other Concerns Fall Risk High fall risk Barriers to Rehabilitation Orthostatic hypotension Goals 3 Impairment 878 feet in 6MWT Skilled Nursing Goal (LTG) Pt will gait train at least 1100 feet in 6 minutes with or without AD and no more than superv assistance to improve community gait distance. LTG Duration 8 weeks 2 Impairment 12 reps STS in 30 sec with SBA Supervisory Geographer Goal (LTG) Pt will perform at least 15 STS without UE support in 30 sec with no more than superv assistance with controlled descend to improve functional balance with transfers. LTG Duration 8 weeks 1 Impairment TUG in 16 sec wtih CGA required Skilled Nursing Goal (LTG) Pt will perform TUG in less than 10 sec with no more than superv assistance to decrease fall risk. LTG Duration 8 weeks Assessment Summary Assessment Pt is an 87 y/o male presenting with hypoverbality, cognitive challenges, orthostatic hypotension, shuffling gait, decreased right shoulder flexion range and strength and imbalance in setting of PD, AD, advanced age and history of CABGx5. Pt' s LE strength and left UE strength are functional and his right shoulder range is less with strength no more than 3-/5 flexion today. Pt nor can report an injury. answers most questions. During the assessment, PT notices that she has a bruise on her forehead and she also reports a recent fall. PT does not feel that the physical or cognitive difficulty of LSVT BIG is the best treatment course for pt given his cognitive, communication, memory, and orthostatic presentations. Perhaps if his was able to assist in a safe manner with her own balance, she could support pt with the BIG requirements for home but she is not able to do so with her own balance impairment. PT recommends PT on a decreased frequency level and he will benefit from balance, strengthening, and education to improve safety and independence. Physical Therapy Plan Frequency and Duration Frequency of Treatment 2x/Week Duration of treatment (weeks) 8 Plan of Care Start Date 02/04/23 Plan of Care End Date 04/06/23 Therapeutic Interventions Therapeutic Interventions Balance Training,Canalithic Repositioning,Coordination Training,Gait Training,Home Exercise Program,Manual Therapy,Neuromuscular Re- education,Patient/Caregiver Education,Self-Care/Home Management,Therapeutic Activities,Therapeutic Exercises,Vestibular Rehabilitation Other Referrals/Consults Referrals/Consults Recommended Speech therapy for memory and speech Next Visit Focus/Plan Next Note Type Treatment Note Next Visit Plan Initiate balance exercises and training, keep an eye on orthostatics
--- NOTE | 2023-02-04 16:04 | PT.OPPOC ---
Physical, Occupational & Speech Therapy At [facility] Current Diagnoses Parkinson's disease (02/04/23) Visit Care Team Role Provider Type Vidhya Quarles DO Family Provider Physician Primary Care Provider Specialty: Medical Address: [address] [place] [address], [address], [place], [address] Email: [email or web address] Hugo Gonzalez MD Attending Provider Non-Staff Referring Provider Specialty: Neurology Address: [address] [facility], [place], [address] Email: Plan Of Care PT-OP-T Assessment and Plan Start: 02/04/23 14:39 Freq: Status: Active Protocol: Document 02/04/23 14:49 MB (Rec: 02/04/23 16:04 MB [id number]) Physical Therapy Assessment Rehab Potential Rehabilitation Potential Fair Evaluation Complexity Number of Personal Factors/Comorbidities 1-2 Number of Body Systems Impaired 3 Clinical Presentation at Evaluation Evolving Impairments Impairments Activity Tolerance,Balance, Coordination,Functional Activities,Functional Mobility ,Gait,Posture,ROM,Strength, Transfers Other Concerns Fall Risk High fall risk Barriers to Rehabilitation Orthostatic hypotension Goals 3 Impairment 878 feet in 6MWT Long-Term Goal (LTG) Pt will gait train at least 1100 feet in 6 minutes with or without AD and no more than superv assistance to improve community gait distance. LTG Duration 8 weeks 2 Impairment 12 reps STS in 30 sec with SBA Long-Term Goal (LTG) Pt will perform at least 15 STS without UE support in 30 sec with no more than superv assistance with controlled descend to improve functional balance with transfers. LTG Duration 8 weeks 1 Impairment TUG in 16 sec wtih CGA required Web Merchandiser Goal (LTG) Pt will perform TUG in less than 10 sec with no more than superv assistance to decrease fall risk. LTG Duration 8 weeks Assessment Summary Assessment Pt is an 87 y/o male presenting with hypoverbality, cognitive challenges, orthostatic hypotension, shuffling gait, decreased right shoulder flexion range and strength and imbalance in setting of PD, AD, advanced age and history of CABGx5. Pt' s LE strength and left UE strength are functional and his right shoulder range is less with strength no more than 3-/5 flexion today. Pt nor can report an injury. answers most questions. During the assessment, PT notices that she has a bruise on her forehead and she also reports a recent fall. PT does not feel that the physical or cognitive difficulty of LSVT BIG is the best treatment course for pt given his cognitive, communication, memory, and orthostatic presentations. Perhaps if his was able to assist in a safe manner with her own balance, she could support pt with the BIG requirements for home but she is not able to do so with her own balance impairment. PT recommends PT on a decreased frequency level and he will benefit from balance, strengthening, and education to improve safety and independence. Physical Therapy Plan Frequency and Duration Frequency of Treatment 2x/Week Duration of treatment (weeks) 8 Plan of Care Start Date 02/04/23 Plan of Care End Date 04/06/23 Therapeutic Interventions Therapeutic Interventions Balance Training,Canalithic Repositioning,Coordination Training,Gait Training,Home Exercise Program,Manual Therapy,Neuromuscular Re- education,Patient/Caregiver Education,Self-Care/Home Management,Therapeutic Activities,Therapeutic Exercises,Vestibular Rehabilitation Other Referrals/Consults Referrals/Consults Recommended Speech therapy for memory and speech Next Visit Focus/Plan Next Note Type Treatment Note Next Visit Plan Initiate balance exercises and training, keep an eye on orthostatics Plan of Care Dates Plan of Care Start Date 02/04/23 Plan of Care End Date 04/06/23 Electronically Signed by: Milly Darling, PT 02/04/23 7975 If you are in agreement with this Plan of Care, please return a signed and dated copy. I have reviewed this Plan of Care and certify that the skilled therapy services above are required to meet the patient?s needs. Physician Signature Date Printed Name and Credentials Clinical Instructor Signature Printed Name and Credentials
--- NOTE | 2023-02-10 11:30 | PT.OTN ---
Current Diagnoses Parkinson's disease (02/10/23) Physical Therapy Treatment Note PT-OP-A Visit Information Start: 02/04/23 14:39 Freq: Status: Active Protocol: Document 02/10/23 10:44 SP (Rec: 02/10/23 11:35 SP [id number]) Out-Patient Physical Therapy Visit Information Visit Information Visit Type Treatment Note Visit Note Pt goes by Bill. observed tx for support with exercises at home if needed. Requested HOs for support. Visit Start Time 10:45 Visit Stop Time 11:30 Total Visit Minutes 45 Visit Number 2 Number of PRODUCE INSPECTOR Visits 1 PT-OP-B Current Condition Start: 02/04/23 14:39 Freq: Status: Active Protocol: Document 02/04/23 14:49 MB (Rec: 02/04/23 16:04 MB [id number]) Current Condition History of Current Condition Onset Date Rachel, reports at least 2 years ago for PD diagnosis History of Current Condition Rachel, provides history and answers most questions. She states that pt was dx with PD about 2 years ago and started Carbidopa Levodopa last summer, about a year ago. Pt states, no when asked if he notices any improvement with the medication. states that he had improvements with shaking. He doesn't spill his tea as much. Pt states that the shaking was the biggest symptom he first noticed and states that he also shuffled his feet. states that he has had 3- 4 falls in the past year. He does have dizziness when he gets up. Pt had PT in the past after knee replacements. They cannot remember anything about it. Pt has not been driving. There are two steps and no rail to enter home. He can use the brick wall. PT notes that has big bruise on her right alevism and she reports a fall as well in the past week. She does the driving and the home care tasks. They have jacket preparer and a mold yard supervisor. There is no family nearby. 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 He has a medication for this as well. He does not talk a lot. states that he has trouble making the words. takes care of all household tasks, managing money, etc. Pt only does his own bathing and dressing and he makes his cereal in the morning. He is able to boil water to make his own tea. Pt denies pain. 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 states that balancing is his biggest problem and that buttoning up shirts is difficult. Pt has history of CABGx5. Treatment Goals Patient/Caregiver Goals Verny: strengthening Tad's legs and balance is scary PT-OP-C Subjective Start: 02/04/23 14:39 Freq: Status: Active Protocol: Document 02/10/23 10:44 SP (Rec: 02/10/23 11:35 SP [id number]) OP-PT Subjective Patient Comments Patient Comments Pt no concerns or comments to report ready to do what you think. PT-OP-D Balance Start: 02/04/23 14:39 Freq: Status: Active Protocol: Document 02/04/23 14:49 MB (Rec: 02/04/23 16:04 MB [id number]) Balance Tests Other Other Balance Tests Performed Pt has wide STEPAN and occ leans legs against the mat for static standing and cannot tolerate more narrow STEPAN standing TUG requires 16 sec and pt requires CGA to prevent falling when turning back to chair to sit, SBA for gait Pt performs 12 reps STS without UE support from standard level mat on eval with one LOB and SBA for safety in 30 sec PT-OP-G Mobility & Gait Start: 02/04/23 14:39 Freq: Status: Active Protocol: Document 02/04/23 14:49 MB (Rec: 02/04/23 16:04 MB [id number]) OP Gait Assessment Gait Gait Assistance Required: Standby Assistance Distance (Feet) 878 Able to Maintain Weight Bearing Status Yes During Gait Gait Deviations General Gait Pattern Festinating,Wide Based Gait Comments Gait Comments Pt requires SBA and one sitting rest break as well as cues for where to gait for 6MWT. He has shuffling stepping with less step- through with right LE PT-OP-H Neuro Start: 02/04/23 14:39 Freq: Status: Active Protocol: Document 02/04/23 14:49 MB (Rec: 02/04/23 16:04 MB [id number]) Coordination Evaluation Upper Extremity Tests Left Finger to Nose Test Minimal Impairment Pronation/Supination Test Minimal Impairment Right Finger to Nose Test Minimal Impairment Pronation/Supination Test Minimal Impairment Lower Extremity Tests Left Heel on Cortés Test Moderate Impairment Right Heel on Cortés Test Moderate Impairment Vital Signs Comments Vital Signs Comments Positive orthostatic hypotension with the following HR and BR in LUE: supine 136/ 72, 54; standing 108/65, 65; standing 1' 123/68, 61 PT-OP-Q Treatments Start: 02/04/23 14:39 Freq: Status: Active Protocol: Document 02/10/23 10:44 SP (Rec: 02/10/23 11:35 SP [id number]) Therapeutic Exercises Sitting Exercises Toe raises Sitting Exercise Name added to HEP Side bilateral Resistance AROM Equipment Used seated mesh chair Reps/Minutes 2x10 Comments good form hip abd Sitting Exercise Name in PT Resistance RTB Reps/Minutes 2x10 Comments cued slow eccentric STS Sitting Exercise Name added to HEP Equipment Used mesh chair Reps/Minutes x10 Comments cued arms fwd, hip hinge asc/ desc slow pace- good last 2 reps no flop LAQ Sitting Exercise Name added to HEP Side bilateral Resistance AROM Reps/Minutes 2x10 Comments cued scoot fully back chair Standing Exercises hip abd, ext Standing Exercise Name added to HEP Side bilateral Equipment Used facing rail Reps/Minutes 2x10 Comments cued TKE with ext- good form/ stability Therapeutic Activity Therapeutic Activity orthostatics Name Orthostatic measurements during activity for safety awareness Comments LUE automated BP seated post ther ex: 113/59 HR 54 standing: Unable stand, RUE 104/64 HR 66 stand post ex: 113/66 HR 73 Nonsymptomatic reported feedback. Gait Training Gait Activity gait Device Used 0 Level of Assistance SBA Distance/Duration 170 ft (1 laps clinic inside) Treatment Focus increase ft clearance, stride, arm swing Comments cued increase stride, arms swing, more forward trunk posture (has posterior COG/PPT trunk posture). Neuro Re-Education Treatment Balance Activities step up/back down Equipment 6 step, //bars PRN Comments retro/R lateral vier back step LLE Min A for trunk support CUed soft step up/down- not significant decrease. step taps Equipment PRN //bars, 6 step Comments alternate BLEs Improves with reps centering body over stance LE fwd/bwd walking Details regular, trial tandem Equipment //bars Comments OH PT-OP-T Assessment and Plan Start: 02/04/23 14:39 Freq: Status: Active Protocol: Document 02/10/23 10:44 SP (Rec: 02/10/23 11:35 SP [id number]) Physical Therapy Assessment Goals 3 Impairment 878 feet in 6MWT Fdc Goal (LTG) Pt will gait train at least 1100 feet in 6 minutes with or without AD and no more than superv assistance to improve community gait distance. LTG Duration 8 weeks 2 Impairment 12 reps STS in 30 sec with SBA Creative Strategist Goal (LTG) Pt will perform at least 15 STS without UE support in 30 sec with no more than superv assistance with controlled descend to improve functional balance with transfers. LTG Duration 8 weeks 1 Impairment TUG in 16 sec wtih CGA required Fdc Goal (LTG) Pt will perform TUG in less than 10 sec with no more than superv assistance to decrease fall risk. LTG Duration 8 weeks Assessment Summary Assessment Tx focused on safe LE strengthening can perform carryover at home, cues for hip hinge slow descend sit in chair, improved slower pacing and soft sit last 2 reps arms front. Pt reported exercises felt easy at the end of the tx . Pt required Min A during balance step taps and step up/ back down especially LLE single stance time. Physical Therapy Plan Frequency and Duration Frequency of Treatment 2x/Week Duration of treatment (weeks) 8 Plan of Care Start Date 02/04/23 Plan of Care End Date 04/06/23 Therapeutic Interventions Therapeutic Interventions Balance Training,Canalithic Repositioning,Coordination Training,Gait Training,Home Exercise Program,Manual Therapy,Neuromuscular Re- education,Patient/Caregiver Education,Self-Care/Home Management,Therapeutic Activities,Therapeutic Exercises,Vestibular Rehabilitation Other Referrals/Consults Referrals/Consults Recommended Speech therapy for memory and speech Next Visit Focus/Plan Next Note Type Treatment Note Next Visit Plan Review HEP: LAQ, Toe raises, STS, stand hip abd & ext. POC: Initiate balance exercises and training, keep an eye on orthostatics
--- NOTE | 2023-02-12 11:30 | PT.OTN ---
Current Diagnoses Parkinson's disease (02/12/23) Physical Therapy Treatment Note PT-OP-A Visit Information Start: 02/04/23 14:39 Freq: Status: Active Protocol: Document 02/12/23 10:49 SP (Rec: 02/12/23 11:36 SP [id number]) Out-Patient Physical Therapy Visit Information Visit Information Visit Type Treatment Note Visit Note Pt goes by Bill. observed tx for support with exercises at home if needed. Requested HOs for support. Visit Start Time 10:49 Visit Stop Time 11:30 Total Visit Minutes 41 Visit Number 3 Number of ROUTE CARRIER Visits 2 PT-OP-B Current Condition Start: 02/04/23 14:39 Freq: Status: Active Protocol: Document 02/04/23 14:49 MB (Rec: 02/04/23 16:04 MB [id number]) Current Condition History of Current Condition Onset Date Rachel, reports at least 2 years ago for PD diagnosis History of Current Condition Rachel, provides history and answers most questions. She states that pt was dx with PD about 2 years ago and started Carbidopa Levodopa last summer, about a year ago. Pt states, no when asked if he notices any improvement with the medication. states that he had improvements with shaking. He doesn't spill his tea as much. Pt states that the shaking was the biggest symptom he first noticed and states that he also shuffled his feet. states that he has had 3- 4 falls in the past year. He does have dizziness when he gets up. Pt had PT in the past after knee replacements. They cannot remember anything about it. Pt has not been driving. There are two steps and no rail to enter home. He can use the brick wall. PT notes that has big bruise on her right methodist and she reports a fall as well in the past week. She does the driving and the home care tasks. They have fountain supervisor and a mold yard crane operator. There is no family nearby. 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 He has a medication for this as well. He does not talk a lot. states that he has trouble making the words. takes care of all household tasks, managing money, etc. Pt only does his own bathing and dressing and he makes his cereal in the morning. He is able to boil water to make his own tea. Pt denies pain. 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 states that balancing is his biggest problem and that buttoning up shirts is difficult. Pt has history of CABGx5. Treatment Goals Patient/Caregiver Goals Verny: strengthening Tad's legs and balance is scary PT-OP-C Subjective Start: 02/04/23 14:39 Freq: Status: Active Protocol: Document 02/12/23 10:49 SP (Rec: 02/12/23 11:36 SP [id number]) OP-PT Subjective Patient Comments Patient Comments Pt reported felt fine after last tx when asked. PT-OP-D Balance Start: 02/04/23 14:39 Freq: Status: Active Protocol: Document 02/04/23 14:49 MB (Rec: 02/04/23 16:04 MB [id number]) Balance Tests Other Other Balance Tests Performed Pt has wide STEPAN and occ leans legs against the mat for static standing and cannot tolerate more narrow STEPAN standing TUG requires 16 sec and pt requires CGA to prevent falling when turning back to chair to sit, SBA for gait Pt performs 12 reps STS without UE support from standard level mat on eval with one LOB and SBA for safety in 30 sec PT-OP-G Mobility & Gait Start: 02/04/23 14:39 Freq: Status: Active Protocol: Document 02/04/23 14:49 MB (Rec: 02/04/23 16:04 MB [id number]) OP Gait Assessment Gait Gait Assistance Required: Standby Assistance Distance (Feet) 878 Able to Maintain Weight Bearing Status Yes During Gait Gait Deviations General Gait Pattern Festinating,Wide Based Gait Comments Gait Comments Pt requires SBA and one sitting rest break as well as cues for where to gait for 6MWT. He has shuffling stepping with less step- through with right LE PT-OP-H Neuro Start: 02/04/23 14:39 Freq: Status: Active Protocol: Document 02/04/23 14:49 MB (Rec: 02/04/23 16:04 MB [id number]) Coordination Evaluation Upper Extremity Tests Left Finger to Nose Test Minimal Impairment Pronation/Supination Test Minimal Impairment Right Finger to Nose Test Minimal Impairment Pronation/Supination Test Minimal Impairment Lower Extremity Tests Left Heel on Cortés Test Moderate Impairment Right Heel on Cortés Test Moderate Impairment Vital Signs Comments Vital Signs Comments Positive orthostatic hypotension with the following HR and BR in LUE: supine 136/ 72, 54; standing 108/65, 65; standing 1' 123/68, 61 PT-OP-Q Treatments Start: 02/04/23 14:39 Freq: Status: Active Protocol: Document 02/12/23 10:49 SP (Rec: 02/12/23 11:36 SP [id number]) Therapeutic Exercises Sitting Exercises Toe raises Sitting Exercise Name in PT added resistance (HEP AROM) Side bilateral Resistance GTB, therapist anchored Equipment Used seated mesh chair Reps/Minutes 2x10 Comments good form, RLE weaker less range hip abd Sitting Exercise Name added to HEP- able wrap band around/hold lat thigh Resistance GTB at thighs Reps/Minutes 2x10 Comments good slow pacing STS Sitting Exercise Name reviewed HEP Equipment Used mesh chair, arms front Reps/Minutes x10 Comments cued arms fwd, hip hinge asc/ desc slow pace- good last 2 reps no flop LAQ Sitting Exercise Name added leg wt in PT (HEP AROM) Side bilateral Resistance 4# leg wt Reps/Minutes 2x10 Comments cued scoot fully back chair Standing Exercises hip abd, ext Standing Exercise Name reviewed HEP Side bilateral Resistance 2# leg wt (in PT, AROM home) Equipment Used chair support Reps/Minutes 2x10 Comments cued upright posture, TKE LLE- good form RLE Neuro Re-Education Treatment Balance Activities hurdles Details f/lateral step to patterning Equipment //bars PRN, 4 hurdes Reps/Duration 2 xlaps each Comments trail LLE caught hurdles use rail and CGA on GB assist stability. Stop as needed for breath recovery, cues slower pacing and SLS time before moving 2nd LE improved stabiltiy 1 HR> no UE support . PT-OP-T Assessment and Plan Start: 02/04/23 14:39 Freq: Status: Active Protocol: Document 02/12/23 10:49 SP (Rec: 02/12/23 11:36 SP [id number]) Physical Therapy Assessment Goals 3 Impairment 878 feet in 6MWT Custodial Goal (LTG) Pt will gait train at least 1100 feet in 6 minutes with or without AD and no more than superv assistance to improve community gait distance. LTG Duration 8 weeks 2 Impairment 12 reps STS in 30 sec with SBA Hot Dip Tinning Supervisor Goal (LTG) Pt will perform at least 15 STS without UE support in 30 sec with no more than superv assistance with controlled descend to improve functional balance with transfers. LTG Duration 8 weeks 1 Impairment TUG in 16 sec wtih CGA required Hot Dip Tinning Supervisor Goal (LTG) Pt will perform TUG in less than 10 sec with no more than superv assistance to decrease fall risk. LTG Duration 8 weeks Assessment Summary Assessment Tx focused on HEP review with added resistance in PT, good effort demonstrated no adverse affects, cues for set up and direction to follow, inquired set up of added seated clamshell with good understanding band positioning for assist pt. Improved foot clearance and stride leaving post stella activity today. Physical Therapy Plan Frequency and Duration Frequency of Treatment 2x/Week Duration of treatment (weeks) 8 Plan of Care Start Date 02/04/23 Plan of Care End Date 04/06/23 Therapeutic Interventions Therapeutic Interventions Balance Training,Canalithic Repositioning,Coordination Training,Gait Training,Home Exercise Program,Manual Therapy,Neuromuscular Re- education,Patient/Caregiver Education,Self-Care/Home Management,Therapeutic Activities,Therapeutic Exercises,Vestibular Rehabilitation Other Referrals/Consults Referrals/Consults Recommended Speech therapy for memory and speech Next Visit Focus/Plan Next Note Type Treatment Note Next Visit Plan Review HEP: LAQ, Toe raises, STS, stand hip abd & ext, seated clamshell. POC: Initiate balance exercises and training, keep an eye on orthostatics
--- NOTE | 2023-02-17 11:15 | PT.OTN ---
Current Diagnoses Parkinson's disease (02/17/23) Physical Therapy Treatment Note PT-OP-A Visit Information Start: 02/04/23 14:39 Freq: Status: Active Protocol: Document 02/17/23 10:30 SP (Rec: 02/17/23 11:32 SP [id number]) Out-Patient Physical Therapy Visit Information Visit Information Visit Type Treatment Note Visit Note Pt goes by Bill. observed tx for support with exercises at home if needed. Requests HOs for support. Visit Start Time 10:30 Visit Stop Time 11:15 Total Visit Minutes 45 Visit Number 4 Number of PAI GOW DEALER Visits 3 PT-OP-B Current Condition Start: 02/04/23 14:39 Freq: Status: Active Protocol: Document 02/04/23 14:49 MB (Rec: 02/04/23 16:04 MB [id number]) Current Condition History of Current Condition Onset Date Rachel, reports at least 2 years ago for PD diagnosis History of Current Condition Rachel, provides history and answers most questions. She states that pt was dx with PD about 2 years ago and started Carbidopa Levodopa last summer, about a year ago. Pt states, no when asked if he notices any improvement with the medication. states that he had improvements with shaking. He doesn't spill his tea as much. Pt states that the shaking was the biggest symptom he first noticed and states that he also shuffled his feet. states that he has had 3- 4 falls in the past year. He does have dizziness when he gets up. Pt had PT in the past after knee replacements. They cannot remember anything about it. Pt has not been driving. There are two steps and no rail to enter home. He can use the brick wall. PT notes that has big bruise on her right mormonism and she reports a fall as well in the past week. She does the driving and the home care tasks. 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 There is no family nearby. 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 He has a medication for this as well. He does not talk a lot. states that he has trouble making the words. takes care of all household tasks, managing money, etc. Pt only does his own bathing and dressing and he makes his cereal in the morning. He is able to boil water to make his own tea. Pt denies pain. 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 states that balancing is his biggest problem and that buttoning up shirts is difficult. Pt has history of CABGx5. Treatment Goals Patient/Caregiver Goals Verny: strengthening Tad's legs and balance is scary PT-OP-C Subjective Start: 02/04/23 14:39 Freq: Status: Active Protocol: Document 02/17/23 10:30 SP (Rec: 02/17/23 11:32 SP [id number]) OP-PT Subjective Patient Comments Patient Comments Pt reports feels tired but ok after tx and doing his exercises at home. Arrives small STEPAN, scuffing gait. PT-OP-D Balance Start: 02/04/23 14:39 Freq: Status: Active Protocol: Document 02/04/23 14:49 MB (Rec: 02/04/23 16:04 MB [id number]) Balance Tests Other Other Balance Tests Performed Pt has wide STEPAN and occ leans legs against the mat for static standing and cannot tolerate more narrow STEPAN standing TUG requires 16 sec and pt requires CGA to prevent falling when turning back to chair to sit, SBA for gait Pt performs 12 reps STS without UE support from standard level mat on eval with one LOB and SBA for safety in 30 sec PT-OP-G Mobility & Gait Start: 02/04/23 14:39 Freq: Status: Active Protocol: Document 02/04/23 14:49 MB (Rec: 02/04/23 16:04 MB [id number]) OP Gait Assessment Gait Gait Assistance Required: Standby Assistance Distance (Feet) 878 Able to Maintain Weight Bearing Status Yes During Gait Gait Deviations General Gait Pattern Festinating,Wide Based Gait Comments Gait Comments Pt requires SBA and one sitting rest break as well as cues for where to gait for 6MWT. He has shuffling stepping with less step- through with right LE PT-OP-H Neuro Start: 02/04/23 14:39 Freq: Status: Active Protocol: Document 02/04/23 14:49 MB (Rec: 02/04/23 16:04 MB [id number]) Coordination Evaluation Upper Extremity Tests Left Finger to Nose Test Minimal Impairment Pronation/Supination Test Minimal Impairment Right Finger to Nose Test Minimal Impairment Pronation/Supination Test Minimal Impairment Lower Extremity Tests Left Heel on Cortés Test Moderate Impairment Right Heel on Cortés Test Moderate Impairment Vital Signs Comments Vital Signs Comments Positive orthostatic hypotension with the following HR and BR in LUE: supine 136/ 72, 54; standing 108/65, 65; standing 1' 123/68, 61 PT-OP-Q Treatments Start: 02/04/23 14:39 Freq: Status: Active Protocol: Document 02/17/23 10:30 SP (Rec: 02/17/23 11:32 SP [id number]) Cardio Equipment Recumbent Stepper (Sci-Fit) Duration (Minutes) 6 Resistance 2 Seat Position 12 Other UEs, LEs - 55 RPMs, 0.72 miles Gym Equipment Shuttle Recovery Unilateral squat Details next tx B squat Details next tx Therapeutic Exercises Sitting Exercises STS Sitting Exercise Name incorporated between balance activities Equipment Used mesh chair, arms front Reps/Minutes x10 Comments cued arms fwd, hip hinge asc/ desc slow pace- good last 2 reps no flop Therapeutic Activity Therapeutic Activity transfer training Name Ed Reps/Minutes 2 beginning tx, 6 reps between 2 chairs end tx Comments cued marching steps approach/ pivot turn and back up to chair, feel chair behind both knees then slow controlled sit . Good control with arms, flops last 1 without UEs. Gait Training Gait Activity gait Device Used 0 Level of Assistance SBA Distance/Duration 340 ft (2 laps clinic) Treatment Focus increase ft clearance, stride, arm swing Comments cued increase R stride pass left, arms swing, soft stepping- improved more centering fwd posture/COG over STEPAN. Neuro Re-Education Treatment Balance Activities rocker board Details WBOS Comments -fwd/bkwd rocking: light 1 UE contact, -stationary stance: brief no UE support- LEs wilmer- cued maintain TKE for safety no buckling, MIn A. hurdles Details f/lateral step to patterning Equipment //bars PRN, 5 hurdes Reps/Duration 2 xlaps each Comments cued slower pacing, soft stepping, trail LLE lift higher to clear stella, PRN rail- only 1 time contact needed step up/back down Equipment 6 step, //bars PRN Reps/Duration 10 reps each LE Comments retro/R lateral vier back step x2, LLE Min A for trunk support CUed soft step up/down, improved centering stability Min>CGA. step taps Surface CG- 5%A Equipment PRN //bars, 6 step Reps/Duration x 10 reps each LE Comments alternate BLEs Improves with reps centering body over stance LE with cues softer stepping asc/desc PT-OP-T Assessment and Plan Start: 02/04/23 14:39 Freq: Status: Active Protocol: Document 02/17/23 10:30 SP (Rec: 02/17/23 11:32 SP [id number]) Physical Therapy Assessment Goals 3 Impairment 878 feet in 6MWT Long-Term Goal (LTG) Pt will gait train at least 1100 feet in 6 minutes with or without AD and no more than superv assistance to improve community gait distance. LTG Duration 8 weeks 2 Impairment 12 reps STS in 30 sec with SBA Long-Term Goal (LTG) Pt will perform at least 15 STS without UE support in 30 sec with no more than superv assistance with controlled descend to improve functional balance with transfers. LTG Duration 8 weeks 1 Impairment TUG in 16 sec wtih CGA required B2B Outside Sales Representative Goal (LTG) Pt will perform TUG in less than 10 sec with no more than superv assistance to decrease fall risk. LTG Duration 8 weeks Assessment Summary Assessment Pt demonstrated better trunk centering during functional strength and balance activities, noted decreased outside support 5-10%A<>CGA and 1 or no UE support while giving cues for slower pacing and soft steps, recruiting core and hip abd facilitation. He is able to increase RLE foot clearance and stride during gait approx 30% of time with Mod cued support. Pt improve controlled sitting end tx with added performance. Physical Therapy Plan Frequency and Duration Frequency of Treatment 2x/Week Duration of treatment (weeks) 8 Plan of Care Start Date 02/04/23 Plan of Care End Date 04/06/23 Therapeutic Interventions Therapeutic Interventions Balance Training,Canalithic Repositioning,Coordination Training,Gait Training,Home Exercise Program,Manual Therapy,Neuromuscular Re- education,Patient/Caregiver Education,Self-Care/Home Management,Therapeutic Activities,Therapeutic Exercises,Vestibular Rehabilitation Other Referrals/Consults Referrals/Consults Recommended Speech therapy for memory and speech Next Visit Focus/Plan Next Note Type Treatment Note Next Visit Plan Review HEP: LAQ, Toe raises, STS, stand hip abd & ext, seated clamshell. POC: Initiate balance exercises and training, keep an eye on orthostatics
--- NOTE | 2023-02-19 14:45 | PT.OTN ---
Current Diagnoses Parkinson's disease (02/19/23) Physical Therapy Treatment Note PT-OP-A Visit Information Start: 02/04/23 14:39 Freq: Status: Active Protocol: Document 02/19/23 14:00 DCW (Rec: 02/19/23 14:44 DCW [id number]) Out-Patient Physical Therapy Visit Information Visit Information Visit Type Treatment Note Visit Note Pt goes by Bill. observed tx for support with exercises at home if needed. Requests HOs for support. Visit Start Time 14:00 Visit Stop Time 14:45 Total Visit Minutes 45 Visit Number 5 Number of MANAGER OF SCHOOL Visits 0 PT-OP-B Current Condition Start: 02/04/23 14:39 Freq: Status: Active Protocol: Document 02/04/23 14:49 MB (Rec: 02/04/23 16:04 MB [id number]) Current Condition History of Current Condition Onset Date Rachel, reports at least 2 years ago for PD diagnosis History of Current Condition Rachel, provides history and answers most questions. She states that pt was dx with PD about 2 years ago and started Carbidopa Levodopa last summer, about a year ago. Pt states, no when asked if he notices any improvement with the medication. states that he had improvements with shaking. He doesn't spill his tea as much. Pt states that the shaking was the biggest symptom he first noticed and states that he also shuffled his feet. states that he has had 3- 4 falls in the past year. He does have dizziness when he gets up. Pt had PT in the past after knee replacements. They cannot remember anything about it. Pt has not been driving. There are two steps and no rail to enter home. He can use the brick wall. PT notes that has big bruise on her right islam and she reports a fall as well in the past week. She does the driving and the home care tasks. 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 There is no family nearby. 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 He has a medication for this as well. He does not talk a lot. states that he has trouble making the words. takes care of all household tasks, managing money, etc. Pt only does his own bathing and dressing and he makes his cereal in the morning. He is able to boil water to make his own tea. Pt denies pain. 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 states that balancing is his biggest problem and that buttoning up shirts is difficult. Pt has history of CABGx5. Treatment Goals Patient/Caregiver Goals Verny: strengthening Tad's legs and balance is scary PT-OP-C Subjective Start: 02/04/23 14:39 Freq: Status: Active Protocol: Document 02/19/23 14:00 DCW (Rec: 02/19/23 14:44 DCW [id number]) OP-PT Subjective Patient Comments Patient Comments Pt reports he feels like he has been getting a pretty good workout so far in PT. PT-OP-D Balance Start: 02/04/23 14:39 Freq: Status: Active Protocol: Document 02/04/23 14:49 MB (Rec: 02/04/23 16:04 MB [id number]) Balance Tests Other Other Balance Tests Performed Pt has wide STEPAN and occ leans legs against the mat for static standing and cannot tolerate more narrow STPEAN standing TUG requires 16 sec and pt requires CGA to prevent falling when turning back to chair to sit, SBA for gait Pt performs 12 reps STS without UE support from standard level mat on eval with one LOB and SBA for safety in 30 sec PT-OP-G Mobility & Gait Start: 02/04/23 14:39 Freq: Status: Active Protocol: Document 02/04/23 14:49 MB (Rec: 02/04/23 16:04 MB [id number]) OP Gait Assessment Gait Gait Assistance Required: Standby Assistance Distance (Feet) 878 Able to Maintain Weight Bearing Status Yes During Gait Gait Deviations General Gait Pattern Festinating,Wide Based Gait Comments Gait Comments Pt requires SBA and one sitting rest break as well as cues for where to gait for 6MWT. He has shuffling stepping with less step- through with right LE PT-OP-H Neuro Start: 02/04/23 14:39 Freq: Status: Active Protocol: Document 02/04/23 14:49 MB (Rec: 02/04/23 16:04 MB [id number]) Coordination Evaluation Upper Extremity Tests Left Finger to Nose Test Minimal Impairment Pronation/Supination Test Minimal Impairment Right Finger to Nose Test Minimal Impairment Pronation/Supination Test Minimal Impairment Lower Extremity Tests Left Heel on Cortés Test Moderate Impairment Right Heel on Cortés Test Moderate Impairment Vital Signs Comments Vital Signs Comments Positive orthostatic hypotension with the following HR and BR in LUE: supine 136/ 72, 54; standing 108/65, 65; standing 1' 123/68, 61 PT-OP-Q Treatments Start: 02/04/23 14:39 Freq: Status: Active Protocol: Document 02/19/23 14:00 DCW (Rec: 02/19/23 14:44 DCW [id number]) Cardio Equipment Recumbent Stepper (Sci-Fit) Duration (Minutes) 6 Resistance 3 Seat Position 12 Other UEs, LEs - 55 RPMs, 0.79 miles Gym Equipment Shuttle Recovery Unilateral squat Resistance 37# (One new) Shuttle Recovery Platform Stable B squat Resistance 75# (Two new) Shuttle Recovery Platform Stable Shuttle Balance Red Details WBOS, Staggered Comments Used UEs for support Therapeutic Exercises Standing Exercises Hamstring Curls Standing Exercise Name HS curls Side bilateral Resistance 4# Other Exercises Resisted Ambulation Other Exercise Name Resisted side-stepping Resistance Red Neuro Re-Education Treatment Balance Activities rocker board Details WBOS Comments -fwd/bkwd rocking: light 1 UE contact, -stationary stance: brief no UE support- LEs shaky- cued maintain TKE for safety no buckling, MIn A. hurdles Details f/lateral step through patterning Equipment Rail PRN Reps/Duration 2 xlaps each Comments cued slower pacing, soft stepping, trail LLE lift higher to clear stella, step up/back down Equipment 6 step, //bars PRN Reps/Duration 10 reps each LE step taps Surface CG- 5%A Equipment PRN //bars, 6 step, 4# Reps/Duration x20 each Comments alternate BLEs Improves with reps centering body over stance LE with cues softer stepping asc/desc PT-OP-T Assessment and Plan Start: 02/04/23 14:39 Freq: Status: Active Protocol: Document 02/19/23 14:00 DCW (Rec: 02/19/23 14:44 DCW [id number]) Physical Therapy Assessment Goals 3 Impairment 878 feet in 6MWT Cougar Hunter Goal (LTG) Pt will gait train at least 1100 feet in 6 minutes with or without AD and no more than superv assistance to improve community gait distance. LTG Duration 8 weeks 2 Impairment 12 reps STS in 30 sec with SBA Cougar Hunter Goal (LTG) Pt will perform at least 15 STS without UE support in 30 sec with no more than superv assistance with controlled descend to improve functional balance with transfers. LTG Duration 8 weeks 1 Impairment TUG in 16 sec wtih CGA required Cougar Hunter Goal (LTG) Pt will perform TUG in less than 10 sec with no more than superv assistance to decrease fall risk. LTG Duration 8 weeks Assessment Summary Assessment Pt put in very good effort today, had good response to increased balance challenges. Did have difficulty trying to not use UEs on shuttle balance . Physical Therapy Plan Frequency and Duration Frequency of Treatment 2x/Week Duration of treatment (weeks) 8 Plan of Care Start Date 02/04/23 Plan of Care End Date 04/06/23 Therapeutic Interventions Therapeutic Interventions Balance Training,Canalithic Repositioning,Coordination Training,Gait Training,Home Exercise Program,Manual Therapy,Neuromuscular Re- education,Patient/Caregiver Education,Self-Care/Home Management,Therapeutic Activities,Therapeutic Exercises,Vestibular Rehabilitation Other Referrals/Consults Referrals/Consults Recommended Speech therapy for memory and speech Next Visit Focus/Plan Next Note Type Treatment Note Next Visit Plan Review HEP: LAQ, Toe raises, STS, stand hip abd & ext, seated clamshell. POC: Continue balance exercises and training, keep an eye on orthostatics
--- NOTE | 2023-02-24 11:30 | PT.OTN ---
Current Diagnoses Parkinson's disease (02/24/23) Physical Therapy Treatment Note PT-OP-A Visit Information Start: 02/04/23 14:39 Freq: Status: Active Protocol: Document 02/24/23 10:46 SP (Rec: 02/24/23 11:32 SP [id number]) Out-Patient Physical Therapy Visit Information Visit Information Visit Type Treatment Note Visit Start Time 10:46 Visit Stop Time 11:30 Total Visit Minutes 44 Visit Number 6 Number of FACILITIES OPERATIONS TECHNICIAN Visits 1 PT-OP-B Current Condition Start: 02/04/23 14:39 Freq: Status: Active Protocol: Document 02/04/23 14:49 MB (Rec: 02/04/23 16:04 MB [id number]) Current Condition History of Current Condition Onset Date Rachel, reports at least 2 years ago for PD diagnosis History of Current Condition Rachel, provides history and answers most questions. She states that pt was dx with PD about 2 years ago and started Carbidopa Levodopa last summer, about a year ago. Pt states, no when asked if he notices any improvement with the medication. states that he had improvements with shaking. He doesn't spill his tea as much. Pt states that the shaking was the biggest symptom he first noticed and states that he also shuffled his feet. states that he has had 3- 4 falls in the past year. He does have dizziness when he gets up. Pt had PT in the past after knee replacements. They cannot remember anything about it. Pt has not been driving. There are two steps and no rail to enter home. He can use the brick wall. PT notes that has big bruise on her right christian and she reports a fall as well in the past week. She does the driving and the home care tasks. They have supervisor throwing department and a log yard derrick operator. There is no family nearby. 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 He has a medication for this as well. He does not talk a lot. states that he has trouble making the words. takes care of all household tasks, managing money, etc. Pt only does his own bathing and dressing and he makes his cereal in the morning. He is able to boil water to make his own tea. Pt denies pain. 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 states that balancing is his biggest problem and that buttoning up shirts is difficult. Pt has history of CABGx5. Treatment Goals Patient/Caregiver Goals Verny: strengthening Bill's legs and balance is scary PT-OP-C Subjective Start: 02/04/23 14:39 Freq: Status: Active Protocol: Document 02/24/23 10:46 SP (Rec: 02/24/23 11:32 SP [id number]) OP-PT Subjective Patient Comments Patient Comments Pt resting his head on hand and eyes closed in waiting room when FACILITIES OPERATIONS TECHNICIAN went up to call pt. He reports doing ok. attends as usual (sits off to side in chair). states pt walks with his hands in his pockets, tends to scuff feet walking with times unsteady and afraid will fall, wished if can use arms to walk would be better. Pt didn't recall doing HEP, gave permission to ask if she remembers him doing. states she reminds him to do and he seems to be doing ok, follows hand outs. She hasnt' had to cue him for better performance. PT-OP-D Balance Start: 02/04/23 14:39 Freq: Status: Active Protocol: Document 02/04/23 14:49 MB (Rec: 02/04/23 16:04 MB [id number]) Balance Tests Other Other Balance Tests Performed Pt has wide STEPAN and occ leans legs against the mat for static standing and cannot tolerate more narrow STEPAN standing TUG requires 16 sec and pt requires CGA to prevent falling when turning back to chair to sit, SBA for gait Pt performs 12 reps STS without UE support from standard level mat on eval with one LOB and SBA for safety in 30 sec PT-OP-G Mobility & Gait Start: 02/04/23 14:39 Freq: Status: Active Protocol: Document 02/04/23 14:49 MB (Rec: 02/04/23 16:04 MB [id number]) OP Gait Assessment Gait Gait Assistance Required: Standby Assistance Distance (Feet) 878 Able to Maintain Weight Bearing Status Yes During Gait Gait Deviations General Gait Pattern Festinating,Wide Based Gait Comments Gait Comments Pt requires SBA and one sitting rest break as well as cues for where to gait for 6MWT. He has shuffling stepping with less step- through with right LE PT-OP-H Neuro Start: 02/04/23 14:39 Freq: Status: Active Protocol: Document 02/04/23 14:49 MB (Rec: 02/04/23 16:04 MB [id number]) Coordination Evaluation Upper Extremity Tests Left Finger to Nose Test Minimal Impairment Pronation/Supination Test Minimal Impairment Right Finger to Nose Test Minimal Impairment Pronation/Supination Test Minimal Impairment Lower Extremity Tests Left Heel on Cortés Test Moderate Impairment Right Heel on Cortés Test Moderate Impairment Vital Signs Comments Vital Signs Comments Positive orthostatic hypotension with the following HR and BR in LUE: supine 136/ 72, 54; standing 108/65, 65; standing 1' 123/68, 61 PT-OP-Q Treatments Start: 02/04/23 14:39 Freq: Status: Active Protocol: Document 02/24/23 10:46 SP (Rec: 02/24/23 11:32 SP [id number]) Cardio Equipment Recumbent Stepper (Sci-Fit) Duration (Minutes) 6 Resistance 3 Seat Position 12 Other UEs&LEs - 55 RPMs, 1.09 miles Gym Equipment Shuttle Recovery Unilateral squat Details tactile cues for not locking knee, slow eccentric control Resistance 37# (One new) Shuttle Recovery Platform Stable Reps/Time x15, tiring at 10 but able to 5 more reps B squat Details tactile cues for not locking knee, slow eccentric control Resistance 75# (Two new) Shuttle Recovery Platform Stable Reps/Time x15- then LEs shaky tiring Therapeutic Exercises Sitting Exercises STS Equipment Used mesh chair, arms on lap if needed Reps/Minutes 5 reps in 16 sec x2 Comments cued slow eccentric control, tends to flop last 1 Standing Exercises Hamstring Curls Standing Exercise Name HS curls Side bilateral Resistance 4# Equipment Used rail support Reps/Minutes x10 Comments cued eccentric control, upright posturing hip abd, ext Standing Exercise Name reviewed HEP Side bilateral Resistance 4# leg wt Equipment Used rail support Reps/Minutes x10 each Comments cued knee straight during ext Gait Training Gait Activity gait Device Used 0 Level of Assistance SBA Distance/Duration 340 ft (2 laps clinic) Treatment Focus increase ft clearance, stride, arm swing Comments cued increase R stride pass left, arms swing, soft stepping- improved more centering fwd posture/COG over STEPAN. slight L SOB today Neuro Re-Education Treatment Balance Activities hurdles Details f/lateral step through patterning Equipment Rail PRN Reps/Duration 2 xlaps each Comments cued Mod/Max cues bigger step and allow 2nd LE room step laterally. step up/back down Surface 4# leg wt Equipment 6 step, 1 UE rail lateral/PRN fwd Reps/Duration 5 reps each LE Comments cued soft stepping, bigger step back to allw clearance and stabl- CG_minA step taps Surface CG- 5%A Equipment rail, 6 step, 4# Reps/Duration x20 each Comments alternate BLEs Improves with reps centering body over stance LE with cues softer stepping asc/desc PT-OP-T Assessment and Plan Start: 02/04/23 14:39 Freq: Status: Active Protocol: Document 02/24/23 10:46 SP (Rec: 02/24/23 11:32 SP [id number]) Physical Therapy Assessment Goals 3 Impairment 878 feet in 6MWT Aerial Photograph Interpreter Goal (LTG) Pt will gait train at least 1100 feet in 6 minutes with or without AD and no more than superv assistance to improve community gait distance. LTG Duration 8 weeks 2 Impairment 12 reps STS in 30 sec with SBA Shelter Goal (LTG) Pt will perform at least 15 STS without UE support in 30 sec with no more than superv assistance with controlled descend to improve functional balance with transfers. 02/24/23: ProgresssinxSTS in 16 sec x2 UEs on lap pressure as needed. LTG Duration 8 weeks progressing 02/24/23 1 Impairment TUG in 16 sec wtih CGA required Shelter Goal (LTG) Pt will perform TUG in less than 10 sec with no more than superv assistance to decrease fall risk. LTG Duration 8 weeks Assessment Summary Assessment Pt seemed lethargic today, works hard this tx. He required rest breaks between activities due to noted increase respiratory rate and LEs tiring more quickly but able to perform decreased UE support today. Pt improved improved heel toe, less heel scuff during gait with Min cues for increased stride and arm swing end tx post ther ex and balance activities. Pt post discussion agreeable to therapist and reminding him to take bigger step and arm swing for improved gait phase quality and stability. Pt would beneift and will continue to progress strength, stabiltiy and gait during PT. Physical Therapy Plan Frequency and Duration Frequency of Treatment 2x/Week Duration of treatment (weeks) 8 Plan of Care Start Date 02/04/23 Plan of Care End Date 04/06/23 Therapeutic Interventions Therapeutic Interventions Balance Training,Canalithic Repositioning,Coordination Training,Gait Training,Home Exercise Program,Manual Therapy,Neuromuscular Re- education,Patient/Caregiver Education,Self-Care/Home Management,Therapeutic Activities,Therapeutic Exercises,Vestibular Rehabilitation Other Referrals/Consults Referrals/Consults Recommended Speech therapy for memory and speech Next Visit Focus/Plan Next Note Type Treatment Note Next Visit Plan Review HEP: LAQ, Toe raises, STS, stand hip abd & ext, seated clamshell. POC: Continue balance exercises and training, keep an eye on orthostatics
--- NOTE | 2023-02-26 11:30 | PT.OTN ---
Current Diagnoses Parkinson's disease (02/26/23) Physical Therapy Treatment Note PT-OP-A Visit Information Start: 02/04/23 14:39 Freq: Status: Active Protocol: Document 02/26/23 10:49 SP (Rec: 02/26/23 11:40 SP [id number]) Out-Patient Physical Therapy Visit Information Visit Information Visit Type Treatment Note Visit Note observed tx for support with exercises at home if needed. Requests HOs for support. Visit Start Time 10:46 Visit Stop Time 11:30 Total Visit Minutes 44 Visit Number 7 Number of AGRICULTURE LABORER Visits 2 PT-OP-B Current Condition Start: 02/04/23 14:39 Freq: Status: Active Protocol: Document 02/04/23 14:49 MB (Rec: 02/04/23 16:04 MB [id number]) Current Condition History of Current Condition Onset Date Rachel, reports at least 2 years ago for PD diagnosis History of Current Condition Rachel, provides history and answers most questions. She states that pt was dx with PD about 2 years ago and started Carbidopa Levodopa last summer, about a year ago. Pt states, no when asked if he notices any improvement with the medication. states that he had improvements with shaking. He doesn't spill his tea as much. Pt states that the shaking was the biggest symptom he first noticed and states that he also shuffled his feet. states that he has had 3- 4 falls in the past year. He does have dizziness when he gets up. Pt had PT in the past after knee replacements. They cannot remember anything about it. Pt has not been driving. There are two steps and no rail to enter home. He can use the brick wall. PT notes that has big bruise on her right yazdanism and she reports a fall as well in the past week. She does the driving and the home care tasks. They have corncob pipe supervisor and a personal assistant. There is no family nearby. 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 He has a medication for this as well. He does not talk a lot. states that he has trouble making the words. takes care of all household tasks, managing money, etc. Pt only does his own bathing and dressing and he makes his cereal in the morning. He is able to boil water to make his own tea. Pt denies pain. 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 states that balancing is his biggest problem and that buttoning up shirts is difficult. Pt has history of CABGx5. Treatment Goals Patient/Caregiver Goals Verny: strengthening Tad's legs and balance is scary PT-OP-C Subjective Start: 02/04/23 14:39 Freq: Status: Active Protocol: Document 02/26/23 10:49 SP (Rec: 02/26/23 11:40 SP [id number]) OP-PT Subjective Patient Comments Patient Comments Pt reports doing ok, doesn't recall how feels after previous tx, memory not good . states he is tired after tx, takes a good nap but not so tired that affects his stability worse, when asked her. PT-OP-D Balance Start: 02/04/23 14:39 Freq: Status: Active Protocol: Document 02/04/23 14:49 MB (Rec: 02/04/23 16:04 MB [id number]) Balance Tests Other Other Balance Tests Performed Pt has wide STEPAN and occ leans legs against the mat for static standing and cannot tolerate more narrow STEPAN standing TUG requires 16 sec and pt requires CGA to prevent falling when turning back to chair to sit, SBA for gait Pt performs 12 reps STS without UE support from standard level mat on eval with one LOB and SBA for safety in 30 sec PT-OP-G Mobility & Gait Start: 02/04/23 14:39 Freq: Status: Active Protocol: Document 02/04/23 14:49 MB (Rec: 02/04/23 16:04 MB [id number]) OP Gait Assessment Gait Gait Assistance Required: Standby Assistance Distance (Feet) 878 Able to Maintain Weight Bearing Status Yes During Gait Gait Deviations General Gait Pattern Festinating,Wide Based Gait Comments Gait Comments Pt requires SBA and one sitting rest break as well as cues for where to gait for 6MWT. He has shuffling stepping with less step- through with right LE PT-OP-H Neuro Start: 02/04/23 14:39 Freq: Status: Active Protocol: Document 02/04/23 14:49 MB (Rec: 02/04/23 16:04 MB [id number]) Coordination Evaluation Upper Extremity Tests Left Finger to Nose Test Minimal Impairment Pronation/Supination Test Minimal Impairment Right Finger to Nose Test Minimal Impairment Pronation/Supination Test Minimal Impairment Lower Extremity Tests Left Heel on Cortés Test Moderate Impairment Right Heel on Cortés Test Moderate Impairment Vital Signs Comments Vital Signs Comments Positive orthostatic hypotension with the following HR and BR in LUE: supine 136/ 72, 54; standing 108/65, 65; standing 1' 123/68, 61 PT-OP-Q Treatments Start: 02/04/23 14:39 Freq: Status: Active Protocol: Document 02/26/23 10:49 SP (Rec: 02/26/23 11:40 SP [id number]) Cardio Equipment Recumbent Stepper (Sci-Fit) Duration (Minutes) 7 Resistance 3 Seat Position 12 Other UEs&LEs - 55 RPMs w/ UE, 44 LE only (2 min), [employer] Equipment Shuttle Recovery Unilateral squat Details tactile cues for not locking knee, slow eccentric control Resistance 37# (One new) Shuttle Recovery Platform Stable Reps/Time 2x10, tiring and SOB rest recovery between sets B squat Details tactile cues for not locking knee, slow eccentric control Resistance 75# (Two new) Shuttle Recovery Platform Stable Reps/Time x10, LEs shaky last rep, SOB Shuttle Balance Red Details WBOS, Staggered Comments wts shift, stationary - Min A, BUE>1 UE>brief no UE Therapeutic Exercises Standing Exercises calf stretch Side bilateral Equipment Used MANDEEP Reps/Minutes 30 x2 each LE Comments rail support Other Exercises Resisted Ambulation Other Exercise Name Resisted side-stepping Resistance Red Equipment Used //bars Reps/Minutes 10 ft x2 laps Comments cued bigger step, slow eccentric trail LE Neuro Re-Education Treatment Balance Activities hurdles Details fwd- step 2, step over step Surface 5 hurdles Equipment Rail PRN (CGA- 5%A) Reps/Duration 2 xlaps each Comments Mod cues bigger step, slower pacing for allowance trail LE clearance, 3x trail LE caught stella but rail contact recovery. step taps Surface CG- 5%A Equipment rail PRN, 8 step, 4# Reps/Duration x20 each Comments alternate BLEs Improves with reps centering body over stance LE with cues softer stepping asc/desc, LOB/ deviation x3 retroL during LLE stance time bringing RLE from step to floor. PT-OP-T Assessment and Plan Start: 02/04/23 14:39 Freq: Status: Active Protocol: Document 02/26/23 10:49 SP (Rec: 02/26/23 11:40 SP [id number]) Physical Therapy Assessment Goals 3 Impairment 878 feet in 6MWT Air Brake Adjuster Goal (LTG) Pt will gait train at least 1100 feet in 6 minutes with or without AD and no more than superv assistance to improve community gait distance. LTG Duration 8 weeks 2 Impairment 12 reps STS in 30 sec with SBA Mcfp Goal (LTG) Pt will perform at least 15 STS without UE support in 30 sec with no more than superv assistance with controlled descend to improve functional balance with transfers. 02/24/23: ProgresssinxSTS in 16 sec x2 UEs on lap pressure as needed. LTG Duration 8 weeks progressing 02/24/23 1 Impairment TUG in 16 sec wtih CGA required Air Brake Adjuster Goal (LTG) Pt will perform TUG in less than 10 sec with no more than superv assistance to decrease fall risk. LTG Duration 8 weeks Assessment Summary Assessment Pt improving balance SLS time during resisted ther ex with cues for slower pacing and eccentric transition opposite LE movement. Decreased UE support today during hurdles, step taps and shuttle recovery . Pt does need stop brief rest for tiring and breath recover between activities. Physical Therapy Plan Frequency and Duration Frequency of Treatment 2x/Week Duration of treatment (weeks) 8 Plan of Care Start Date 02/04/23 Plan of Care End Date 04/06/23 Therapeutic Interventions Therapeutic Interventions Balance Training,Canalithic Repositioning,Coordination Training,Gait Training,Home Exercise Program,Manual Therapy,Neuromuscular Re- education,Patient/Caregiver Education,Self-Care/Home Management,Therapeutic Activities,Therapeutic Exercises,Vestibular Rehabilitation Other Referrals/Consults Referrals/Consults Recommended Speech therapy for memory and speech Next Visit Focus/Plan Next Note Type Treatment Note Next Visit Plan Review HEP: LAQ, Toe raises, STS, stand hip abd & ext, seated clamshell. POC: Continue balance exercises and training, keep an eye on orthostatics
--- NOTE | 2023-03-03 13:31 | PT.OTN ---
Current Diagnoses Parkinson's disease (03/03/23) Physical Therapy Treatment Note PT-OP-A Visit Information Start: 02/04/23 14:39 Freq: Status: Active Protocol: Document 03/03/23 12:53 DCW (Rec: 03/03/23 13:31 DCW [id number]) Out-Patient Physical Therapy Visit Information Visit Information Visit Type Treatment Note Visit Start Time 12:53 Visit Stop Time 13:31 Total Visit Minutes 38 Visit Number 8 Number of FINANCIAL ADMINISTRATION OFFICER Visits 0 PT-OP-B Current Condition Start: 02/04/23 14:39 Freq: Status: Active Protocol: Document 02/04/23 14:49 MB (Rec: 02/04/23 16:04 MB [id number]) Current Condition History of Current Condition Onset Date Rachel, reports at least 2 years ago for PD diagnosis History of Current Condition Rachel, provides history and answers most questions. She states that pt was dx with PD about 2 years ago and started Carbidopa Levodopa last summer, about a year ago. Pt states, no when asked if he notices any improvement with the medication. states that he had improvements with shaking. He doesn't spill his tea as much. Pt states that the shaking was the biggest symptom he first noticed and states that he also shuffled his feet. states that he has had 3- 4 falls in the past year. He does have dizziness when he gets up. Pt had PT in the past after knee replacements. They cannot remember anything about it. Pt has not been driving. There are two steps and no rail to enter home. He can use the brick wall. PT notes that has big bruise on her right judaism and she reports a fall as well in the past week. She does the driving and the home care tasks. They have concession supervisor and a yard attendant. There is no family nearby. 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 He has a medication for this as well. He does not talk a lot. states that he has trouble making the words. takes care of all household tasks, managing money, etc. Pt only does his own bathing and dressing and he makes his cereal in the morning. He is able to boil water to make his own tea. Pt denies pain. 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 states that balancing is his biggest problem and that buttoning up shirts is difficult. Pt has history of CABGx5. Treatment Goals Patient/Caregiver Goals Verny: strengthening Tad's legs and balance is scary PT-OP-C Subjective Start: 02/04/23 14:39 Freq: Status: Active Protocol: Document 03/03/23 12:53 DCW (Rec: 03/03/23 13:31 DCW [id number]) OP-PT Subjective Patient Comments Patient Comments Pt ready to work today. PT-OP-D Balance Start: 02/04/23 14:39 Freq: Status: Active Protocol: Document 02/04/23 14:49 MB (Rec: 02/04/23 16:04 MB [id number]) Balance Tests Other Other Balance Tests Performed Pt has wide STEPAN and occ leans legs against the mat for static standing and cannot tolerate more narrow STEPAN standing TUG requires 16 sec and pt requires CGA to prevent falling when turning back to chair to sit, SBA for gait Pt performs 12 reps STS without UE support from standard level mat on eval with one LOB and SBA for safety in 30 sec PT-OP-G Mobility & Gait Start: 02/04/23 14:39 Freq: Status: Active Protocol: Document 02/04/23 14:49 MB (Rec: 02/04/23 16:04 MB [id number]) OP Gait Assessment Gait Gait Assistance Required: Standby Assistance Distance (Feet) 878 Able to Maintain Weight Bearing Status Yes During Gait Gait Deviations General Gait Pattern Festinating,Wide Based Gait Comments Gait Comments Pt requires SBA and one sitting rest break as well as cues for where to gait for 6MWT. He has shuffling stepping with less step- through with right LE PT-OP-H Neuro Start: 02/04/23 14:39 Freq: Status: Active Protocol: Document 02/04/23 14:49 MB (Rec: 02/04/23 16:04 MB [id number]) Coordination Evaluation Upper Extremity Tests Left Finger to Nose Test Minimal Impairment Pronation/Supination Test Minimal Impairment Right Finger to Nose Test Minimal Impairment Pronation/Supination Test Minimal Impairment Lower Extremity Tests Left Heel on Cortés Test Moderate Impairment Right Heel on Cortés Test Moderate Impairment Vital Signs Comments Vital Signs Comments Positive orthostatic hypotension with the following HR and BR in LUE: supine 136/ 72, 54; standing 108/65, 65; standing 1' 123/68, 61 PT-OP-Q Treatments Start: 02/04/23 14:39 Freq: Status: Active Protocol: Document 03/03/23 12:53 DCW (Rec: 03/03/23 13:31 DCW [id number]) Cardio Equipment Recumbent Elliptical (Biodex) Duration (Minutes) 6 Resistance 5 Seat Position 10 Gym Equipment Shuttle Recovery Unilateral squat Details tactile cues for not locking knee, slow eccentric control Resistance 37# (One new) Shuttle Recovery Platform Stable Reps/Time 2x10, tiring and SOB rest recovery between sets B squat Details tactile cues for not locking knee, slow eccentric control Resistance 75# (Two new) Shuttle Recovery Platform Stable Reps/Time x10, LEs shaky last rep, SOB Therapeutic Exercises Sitting Exercises STS Equipment Used mesh chair, arms on lap if needed Reps/Minutes 5 reps in 16 sec x2 Comments cued slow eccentric control, tends to flop last 1 Standing Exercises calf stretch Side bilateral Equipment Used MANDEEP Reps/Minutes 30 x2 each LE Comments rail support Hamstring Curls Standing Exercise Name HS curls Side bilateral Resistance 4# Equipment Used rail support Reps/Minutes x10 Comments cued eccentric control, upright posturing hip abd, ext Standing Exercise Name hip abd, ext Side bilateral Resistance 4# leg wt Equipment Used rail support Reps/Minutes x10 each Comments cued knee straight during ext Gait Training Gait Activity gait Device Used 0 Level of Assistance SBA Distance/Duration 170'x2 Treatment Focus increase ft clearance, stride, arm swing Comments one /s metronome, one /c 80-> 85->90 bpm metronome Neuro Re-Education Treatment Balance Activities Tandem Details Tandem Stance PT-OP-T Assessment and Plan Start: 02/04/23 14:39 Freq: Status: Active Protocol: Document 03/03/23 12:53 DCW (Rec: 03/03/23 13:31 [facility] [id number]) Physical Therapy Assessment Goals 3 Impairment 878 feet in 6MWT Correction Goal (LTG) Pt will gait train at least 1100 feet in 6 minutes with or without AD and no more than superv assistance to improve community gait distance. LTG Duration 8 weeks 2 Impairment 12 reps STS in 30 sec with SBA Open Tenter Operator Goal (LTG) Pt will perform at least 15 STS without UE support in 30 sec with no more than superv assistance with controlled descend to improve functional balance with transfers. 02/24/23: ProgresssinxSTS in 16 sec x2 UEs on lap pressure as needed. LTG Duration 8 weeks progressing 02/24/23 1 Impairment TUG in 16 sec wtih CGA required Correction Goal (LTG) Pt will perform TUG in less than 10 sec with no more than superv assistance to decrease fall risk. LTG Duration 8 weeks Assessment Summary Assessment BP measured at 126/62 assisted through treatment session today. Some fatigue today, but otherwise tolerated treatment well today. Physical Therapy Plan Frequency and Duration Frequency of Treatment 2x/Week Duration of treatment (weeks) 8 Plan of Care Start Date 02/04/23 Plan of Care End Date 04/06/23 Therapeutic Interventions Therapeutic Interventions Balance Training,Canalithic Repositioning,Coordination Training,Gait Training,Home Exercise Program,Manual Therapy,Neuromuscular Re- education,Patient/Caregiver Education,Self-Care/Home Management,Therapeutic Activities,Therapeutic Exercises,Vestibular Rehabilitation Other Referrals/Consults Referrals/Consults Recommended Speech therapy for memory and speech Next Visit Focus/Plan Next Note Type Treatment Note Next Visit Plan Review HEP: LAQ, Toe raises, STS, stand hip abd & ext, seated clamshell. POC: Continue balance exercises and training, keep an eye on orthostatics
--- NOTE | 2023-03-05 11:28 | PT.OTN ---
Current Diagnoses Parkinson's disease (03/05/23) Physical Therapy Treatment Note PT-OP-A Visit Information Start: 02/04/23 14:39 Freq: Status: Active Protocol: Document 03/05/23 10:43 SP (Rec: 03/05/23 11:44 SP [id number]) Out-Patient Physical Therapy Visit Information Visit Information Visit Type Treatment Note Visit Note observed tx. Visit Start Time 10:43 Visit Stop Time 11:28 Total Visit Minutes 45 Visit Number 9 Number of AGRICULTURAL EDUCATION TEACHER Visits 1 PT-OP-B Current Condition Start: 02/04/23 14:39 Freq: Status: Active Protocol: Document 02/04/23 14:49 MB (Rec: 02/04/23 16:04 MB [id number]) Current Condition History of Current Condition Onset Date Rachel, reports at least 2 years ago for PD diagnosis History of Current Condition Rachel, provides history and answers most questions. She states that pt was dx with PD about 2 years ago and started Carbidopa Levodopa last summer, about a year ago. Pt states, no when asked if he notices any improvement with the medication. states that he had improvements with shaking. He doesn't spill his tea as much. Pt states that the shaking was the biggest symptom he first noticed and states that he also shuffled his feet. states that he has had 3- 4 falls in the past year. He does have dizziness when he gets up. Pt had PT in the past after knee replacements. They cannot remember anything about it. Pt has not been driving. There are two steps and no rail to enter home. He can use the brick wall. PT notes that has big bruise on her right anabaptism and she reports a fall as well in the past week. She does the driving and the home care tasks. They have mapper and a yarding and folding machine operator. There is no family nearby. 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 He has a medication for this as well. He does not talk a lot. states that he has trouble making the words. takes care of all household tasks, managing money, etc. Pt only does his own bathing and dressing and he makes his cereal in the morning. He is able to boil water to make his own tea. Pt denies pain. 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 states that balancing is his biggest problem and that buttoning up shirts is difficult. Pt has history of CABGx5. Treatment Goals Patient/Caregiver Goals Verny: strengthening Tad's legs and balance is scary PT-OP-C Subjective Start: 02/04/23 14:39 Freq: Status: Active Protocol: Document 03/05/23 10:43 SP (Rec: 03/05/23 11:44 SP [id number]) OP-PT Subjective Patient Comments Patient Comments I am doing ok. PT-OP-D Balance Start: 02/04/23 14:39 Freq: Status: Active Protocol: Document 02/04/23 14:49 MB (Rec: 02/04/23 16:04 MB [id number]) Balance Tests Other Other Balance Tests Performed Pt has wide STEPAN and occ leans legs against the mat for static standing and cannot tolerate more narrow STEPAN standing TUG requires 16 sec and pt requires CGA to prevent falling when turning back to chair to sit, SBA for gait Pt performs 12 reps STS without UE support from standard level mat on eval with one LOB and SBA for safety in 30 sec PT-OP-G Mobility & Gait Start: 02/04/23 14:39 Freq: Status: Active Protocol: Document 02/04/23 14:49 MB (Rec: 02/04/23 16:04 MB [id number]) OP Gait Assessment Gait Gait Assistance Required: Standby Assistance Distance (Feet) 878 Able to Maintain Weight Bearing Status Yes During Gait Gait Deviations General Gait Pattern Festinating,Wide Based Gait Comments Gait Comments Pt requires SBA and one sitting rest break as well as cues for where to gait for 6MWT. He has shuffling stepping with less step- through with right LE PT-OP-H Neuro Start: 02/04/23 14:39 Freq: Status: Active Protocol: Document 02/04/23 14:49 MB (Rec: 02/04/23 16:04 MB [id number]) Coordination Evaluation Upper Extremity Tests Left Finger to Nose Test Minimal Impairment Pronation/Supination Test Minimal Impairment Right Finger to Nose Test Minimal Impairment Pronation/Supination Test Minimal Impairment Lower Extremity Tests Left Heel on Cortés Test Moderate Impairment Right Heel on Cortés Test Moderate Impairment Vital Signs Comments Vital Signs Comments Positive orthostatic hypotension with the following HR and BR in LUE: supine 136/ 72, 54; standing 108/65, 65; standing 1' 123/68, 61 PT-OP-Q Treatments Start: 02/04/23 14:39 Freq: Status: Active Protocol: Document 03/05/23 10:43 SP (Rec: 03/05/23 11:44 SP [id number]) Cardio Equipment Recumbent Stepper (Sci-Fit) Duration (Minutes) 8 Resistance 3 Seat Position 11 Other UEs&LEs - 53 RPMs BUE/LEs, 1. 02 miles Gym Equipment Shuttle Recovery Unilateral squat Details tactile cues for not locking knee, slow eccentric control Resistance 37# (One new) Shuttle Recovery Platform Stable Reps/Time 8, 4 reps R; 10x2 L, tiring/ LE shaky/+ SOB rest recovery between sets/post B squat Details tactile cues for not locking knee, slow eccentric control Resistance 75# (Two new) Shuttle Recovery Platform Stable Reps/Time x12, LEs shaky last 2reps, SOB Sport Cord green Exercise Details Fwd, Bwd, Right, Left Cord/Resistance green Reps/Duration 5 reps bwd, fwd, Left, 3 reps Right before tired out need sit Comments Min cues for upright posturing , ft clearance, controlled steps return. CG/10%A as needed Therapeutic Exercises Standing Exercises calf stretch Side bilateral Equipment Used MANDEEP Reps/Minutes 30 x2 each LE Comments rail support Other Exercises Resisted Ambulation Other Exercise Name Resisted side-stepping Resistance Red> YTB Equipment Used //bars no UE support Reps/Minutes 10 ft x2 laps before need sit Comments cued bigger step, taller posture, slow eccentric trail LE Gait Training Gait Activity gait Device Used 0 Level of Assistance SBA Distance/Duration 170 ft end tx, tired needed sit Treatment Focus increase ft clearance, stride, arm swing Comments forgot metronome 03/05/23 ( last tx 80>90bpm) Cued increase ft clearance, larger stride, slower breath ( good performance), arm swing wt shift fwd into front foot when walking, small decrease in retro/PPT posturing. Neuro Re-Education Treatment Balance Activities hurdles Details fwd- step 2 patterning Surface 5 hurdles Equipment Rail PRN (CGA- 10%A)- retro lean Reps/Duration 2 xlaps each Comments Max cues for trail LE higher step/clearance slower pacing for allowance trail LE clearance, 4x trail L>RLE caught stella contact recovery + Min A. 30 sec STS Surface hands touch knees but not used Equipment large chair Reps/Duration 8 reps in 30 sec, 13 sec 5x STS Comments performed after cardio and sport cord, little more tired. last rep quick descend. SBA PT-OP-T Assessment and Plan Start: 02/04/23 14:39 Freq: Status: Active Protocol: Document 03/05/23 10:43 SP (Rec: 03/05/23 11:44 SP [id number]) Physical Therapy Assessment Goals 3 Impairment 878 feet in 6MWT Assisted Goal (LTG) Pt will gait train at least 1100 feet in 6 minutes with or without AD and no more than superv assistance to improve community gait distance. LTG Duration 8 weeks 2 Impairment 12 reps STS in 30 sec with SBA Ready To Wear Department Manager Goal (LTG) Pt will perform at least 15 STS without UE support in 30 sec with no more than superv assistance with controlled descend to improve functional balance with transfers. 02/24/23: ProgresssinxSTS in 16 sec x2 UEs on lap pressure as needed. LTG Duration 8 weeks progressing 02/24/23 1 Impairment TUG in 16 sec wtih CGA required Assisted Goal (LTG) Pt will perform TUG in less than 10 sec with no more than superv assistance to decrease fall risk. LTG Duration 8 weeks Assessment Summary Assessment LUE automated: 112/65 HR 63 BPM SaO2 99% (recovered by time got reading O2), seated rest after resisted lateral stepping. Pt more fatigued today, required decreased reps with shuttle recovery and rest breaks between standing activities and cues for slower breath assisted decrease rate and recovery. Pt/ understand PN next with activities will perform. Physical Therapy Plan Frequency and Duration Frequency of Treatment 2x/Week Duration of treatment (weeks) 8 Plan of Care Start Date 02/04/23 Plan of Care End Date 04/06/23 Therapeutic Interventions Therapeutic Interventions Balance Training,Canalithic Repositioning,Coordination Training,Gait Training,Home Exercise Program,Manual Therapy,Neuromuscular Re- education,Patient/Caregiver Education,Self-Care/Home Management,Therapeutic Activities,Therapeutic Exercises,Vestibular Rehabilitation Other Referrals/Consults Referrals/Consults Recommended Speech therapy for memory and speech Next Visit Focus/Plan Next Note Type Progress Note Next Visit Plan PN 10th visit next tx. Review HEP future appt: LAQ, Toe raises, STS, stand hip abd & ext, seated clamshell. POC: Continue balance exercises and training, keep an eye on orthostatics
--- NOTE | 2023-03-12 12:45 | PT.OTN ---
Current Diagnoses Parkinson's disease (03/12/23) Physical Therapy Treatment Note PT-OP-A Visit Information Start: 02/04/23 14:39 Freq: Status: Active Protocol: Document 03/12/23 12:03 DCW (Rec: 03/12/23 12:44 DCW [id number]) Out-Patient Physical Therapy Visit Information Visit Information Visit Type Progress Note Visit Note 10th visit observed tx. Visit Start Time 12:03 Visit Stop Time 12:45 Total Visit Minutes 42 Visit Number 10 Number of INSPECTOR ELECTROMECHANICAL Visits 0 PT-OP-B Current Condition Start: 02/04/23 14:39 Freq: Status: Active Protocol: Document 02/04/23 14:49 MB (Rec: 02/04/23 16:04 MB [id number]) Current Condition History of Current Condition Onset Date Rachel, reports at least 2 years ago for PD diagnosis History of Current Condition Rachel, provides history and answers most questions. She states that pt was dx with PD about 2 years ago and started Carbidopa Levodopa last summer, about a year ago. Pt states, no when asked if he notices any improvement with the medication. states that he had improvements with shaking. He doesn't spill his tea as much. Pt states that the shaking was the biggest symptom he first noticed and states that he also shuffled his feet. states that he has had 3- 4 falls in the past year. He does have dizziness when he gets up. Pt had PT in the past after knee replacements. They cannot remember anything about it. Pt has not been driving. There are two steps and no rail to enter home. He can use the brick wall. PT notes that has big bruise on her right presybeterian and she reports a fall as well in the past week. She does the driving and the home care tasks. They have party plan demonstrator and a groundskeeping yardman. There is no family nearby. 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 He has a medication for this as well. He does not talk a lot. states that he has trouble making the words. takes care of all household tasks, managing money, etc. Pt only does his own bathing and dressing and he makes his cereal in the morning. He is able to boil water to make his own tea. Pt denies pain. 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 states that balancing is his biggest problem and that buttoning up shirts is difficult. Pt has history of CABGx5. Treatment Goals Patient/Caregiver Goals Verny: strengthening Tda's legs and balance is scary PT-OP-C Subjective Start: 02/04/23 14:39 Freq: Status: Active Protocol: Document 03/12/23 12:03 DCW (Rec: 03/12/23 12:44 DCW [id number]) OP-PT Subjective Patient Comments Patient Comments Pt reports he has not been having any difficulty with anything. PT-OP-D Balance Start: 02/04/23 14:39 Freq: Status: Active Protocol: Document 02/04/23 14:49 MB (Rec: 02/04/23 16:04 MB [id number]) Balance Tests Other Other Balance Tests Performed Pt has wide STEPAN and occ leans legs against the mat for static standing and cannot tolerate more narrow STEPAN standing TUG requires 16 sec and pt requires CGA to prevent falling when turning back to chair to sit, SBA for gait Pt performs 12 reps STS without UE support from standard level mat on eval with one LOB and SBA for safety in 30 sec PT-OP-G Mobility & Gait Start: 02/04/23 14:39 Freq: Status: Active Protocol: Document 02/04/23 14:49 MB (Rec: 02/04/23 16:04 MB [id number]) OP Gait Assessment Gait Gait Assistance Required: Standby Assistance Distance (Feet) 878 Able to Maintain Weight Bearing Status Yes During Gait Gait Deviations General Gait Pattern Festinating,Wide Based Gait Comments Gait Comments Pt requires SBA and one sitting rest break as well as cues for where to gait for 6MWT. He has shuffling stepping with less step- through with right LE PT-OP-H Neuro Start: 02/04/23 14:39 Freq: Status: Active Protocol: Document 02/04/23 14:49 MB (Rec: 02/04/23 16:04 MB [id number]) Coordination Evaluation Upper Extremity Tests Left Finger to Nose Test Minimal Impairment Pronation/Supination Test Minimal Impairment Right Finger to Nose Test Minimal Impairment Pronation/Supination Test Minimal Impairment Lower Extremity Tests Left Heel on Cortés Test Moderate Impairment Right Heel on Cortés Test Moderate Impairment Vital Signs Comments Vital Signs Comments Positive orthostatic hypotension with the following HR and BR in LUE: supine 136/ 72, 54; standing 108/65, 65; standing 1' 123/68, 61 PT-OP-Q Treatments Start: 02/04/23 14:39 Freq: Status: Active Protocol: Document 03/12/23 12:03 DCW (Rec: 03/12/23 12:44 DCW [id number]) Cardio Equipment Recumbent Elliptical (Biodex) Duration (Minutes) 5 Resistance 5 Seat Position 10 Gym Equipment Shuttle Recovery Unilateral squat Details Improved eccentric control Resistance 37# (One new) Shuttle Recovery Platform Stable Reps/Time x10 each B squat Details Improved eccentric control Resistance 75# (Two new) Shuttle Recovery Platform Stable Reps/Time x14 Therapeutic Exercises Standing Exercises calf stretch Side bilateral Equipment Used MANDEEP Reps/Minutes 30 x2 each LE Comments rail support Gait Training Gait Activity 6MWT Description 939' Device Used None Level of Assistance SBA Comments Pt required seated rest with 35 remaining on test. Neuro Re-Education Treatment Balance Activities Tandem Details Semi-tandem Surface Blue foam TUG Details 11.08 Comments Three-trial average (11.11, 10 .94, 11.18) 30 sec STS Surface hands touch knees but not used Reps/Duration 13 reps PT-OP-T Assessment and Plan Start: 02/04/23 14:39 Freq: Status: Active Protocol: Document 03/12/23 12:03 DCW (Rec: 03/12/23 12:44 DCW [id number]) Physical Therapy Assessment Goals 3 Impairment 878 feet in 6MWT Retirement Goal (LTG) Pt will gait train at least 1100 feet in 6 minutes with or without AD and no more than superv assistance to improve community gait distance. Improvin' LTG Duration 04/06/24 2 Impairment 12 reps STS in 30 sec with SBA Retirement Goal (LTG) Pt will perform at least 15 STS without UE support in 30 sec with no more than superv assistance with controlled descend to improve functional balance with transfers. 03/12/23: Progresssin StS in 30, SBA, minimal UE assist LTG Duration 04/06/23 1 Impairment TUG in 16 sec wtih CGA required Wort Extractor Goal (LTG) Pt will perform TUG in less than 10 sec with no more than superv assistance to decrease fall risk. 03/12/23: Improving: TUG in 11 .08 LTG Duration 04/06/24 Assessment Summary Assessment Pt made improvement in all tested areas, TUG score improved by 5 seconds. Showing increased activity tolerance and functional mobility. Continue to focus on strengthening, balance and gait challenges, and improving activity tolerance. Physical Therapy Plan Frequency and Duration Frequency of Treatment 2x/Week Duration of treatment (weeks) 8 Plan of Care Start Date 02/04/23 Plan of Care End Date 04/06/23 Therapeutic Interventions Therapeutic Interventions Balance Training,Canalithic Repositioning,Coordination Training,Gait Training,Home Exercise Program,Manual Therapy,Neuromuscular Re- education,Patient/Caregiver Education,Self-Care/Home Management,Therapeutic Activities,Therapeutic Exercises,Vestibular Rehabilitation Other Referrals/Consults Referrals/Consults Recommended Speech therapy for memory and speech Next Visit Focus/Plan Next Note Type Treatment Note Next Visit Plan Review HEP future appt: LAQ, Toe raises, STS, stand hip abd & ext, seated clamshell. POC: Continue balance exercises and training, keep an eye on orthostatics
--- NOTE | 2023-03-13 13:01 | PT.OTN ---
Current Diagnoses Parkinson's disease without dyskinesia, without mention of fluctuations (03/13/23) Physical Therapy Treatment Note PT-OP-A Visit Information Start: 02/04/23 14:39 Freq: Status: Active Protocol: Document 03/13/23 12:15 DCW (Rec: 03/13/23 13:01 DCW [id number]) Out-Patient Physical Therapy Visit Information Visit Information Visit Type Treatment Note Visit Note observed tx. Visit Start Time 12:15 Visit Stop Time 13:00 Total Visit Minutes 45 Visit Number 11 Number of TRIAL CONSULTANT Visits 0 PT-OP-B Current Condition Start: 02/04/23 14:39 Freq: Status: Active Protocol: Document 02/04/23 14:49 MB (Rec: 02/04/23 16:04 MB [id number]) Current Condition History of Current Condition Onset Date Rachel, reports at least 2 years ago for PD diagnosis History of Current Condition Rachel, provides history and answers most questions. She states that pt was dx with PD about 2 years ago and started Carbidopa Levodopa last summer, about a year ago. Pt states, no when asked if he notices any improvement with the medication. states that he had improvements with shaking. He doesn't spill his tea as much. Pt states that the shaking was the biggest symptom he first noticed and states that he also shuffled his feet. states that he has had 3- 4 falls in the past year. He does have dizziness when he gets up. Pt had PT in the past after knee replacements. They cannot remember anything about it. Pt has not been driving. There are two steps and no rail to enter home. He can use the brick wall. PT notes that has big bruise on her right hindu and she reports a fall as well in the past week. She does the driving and the home care tasks. They have clinical lab scientist and a open hearth stockyard supervisor. There is no family nearby. 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 He has a medication for this as well. He does not talk a lot. states that he has trouble making the words. takes care of all household tasks, managing money, etc. Pt only does his own bathing and dressing and he makes his cereal in the morning. He is able to boil water to make his own tea. Pt denies pain. 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 states that balancing is his biggest problem and that buttoning up shirts is difficult. Pt has history of CABGx5. Treatment Goals Patient/Caregiver Goals Verny: strengthening Tad's legs and balance is scary PT-OP-C Subjective Start: 02/04/23 14:39 Freq: Status: Active Protocol: Document 03/13/23 12:15 DCW (Rec: 03/13/23 13:01 DCW [id number]) OP-PT Subjective Patient Comments Patient Comments Pt feeling pretty good today after retesting yesterday. PT-OP-D Balance Start: 02/04/23 14:39 Freq: Status: Active Protocol: Document 02/04/23 14:49 MB (Rec: 02/04/23 16:04 MB [id number]) Balance Tests Other Other Balance Tests Performed Pt has wide STEPAN and occ leans legs against the mat for static standing and cannot tolerate more narrow STEPAN standing TUG requires 16 sec and pt requires CGA to prevent falling when turning back to chair to sit, SBA for gait Pt performs 12 reps STS without UE support from standard level mat on eval with one LOB and SBA for safety in 30 sec PT-OP-G Mobility & Gait Start: 02/04/23 14:39 Freq: Status: Active Protocol: Document 02/04/23 14:49 MB (Rec: 02/04/23 16:04 MB [id number]) OP Gait Assessment Gait Gait Assistance Required: Standby Assistance Distance (Feet) 878 Able to Maintain Weight Bearing Status Yes During Gait Gait Deviations General Gait Pattern Festinating,Wide Based Gait Comments Gait Comments Pt requires SBA and one sitting rest break as well as cues for where to gait for 6MWT. He has shuffling stepping with less step- through with right LE PT-OP-H Neuro Start: 02/04/23 14:39 Freq: Status: Active Protocol: Document 02/04/23 14:49 MB (Rec: 02/04/23 16:04 MB [id number]) Coordination Evaluation Upper Extremity Tests Left Finger to Nose Test Minimal Impairment Pronation/Supination Test Minimal Impairment Right Finger to Nose Test Minimal Impairment Pronation/Supination Test Minimal Impairment Lower Extremity Tests Left Heel on Cortés Test Moderate Impairment Right Heel on Cortés Test Moderate Impairment Vital Signs Comments Vital Signs Comments Positive orthostatic hypotension with the following HR and BR in LUE: supine 136/ 72, 54; standing 108/65, 65; standing 1' 123/68, 61 PT-OP-Q Treatments Start: 02/04/23 14:39 Freq: Status: Active Protocol: Document 03/13/23 12:15 DCW (Rec: 03/13/23 13:01 DCW [id number]) Cardio Equipment Recumbent Elliptical (Biodex) Duration (Minutes) 5 Resistance 6 Seat Position 10 Gym Equipment Shuttle Recovery Unilateral squat Details Improved eccentric control Resistance 37# (One new) Shuttle Recovery Platform Stable Reps/Time x10 each B squat Details Improved eccentric control Resistance 75# (Two new) Shuttle Recovery Platform Stable Reps/Time x21 Sport Cord green Exercise Details Fwd, Bwd, Right, Left Cord/Resistance green/white Reps/Duration 5 reps each Therapeutic Exercises Standing Exercises calf stretch Side bilateral Equipment Used MANDEEP Reps/Minutes 30 x2 each LE Comments rail support Hamstring Curls Standing Exercise Name HS curls Side bilateral Resistance 5# Equipment Used rail support Reps/Minutes x10 Comments cued eccentric control, upright posturing hip abd, ext Standing Exercise Name hip ext Side bilateral Resistance Yellow Equipment Used rail support Reps/Minutes x15 each Comments cued knee straight Other Exercises Resisted Ambulation Other Exercise Name Resisted side-stepping Resistance Yellow Equipment Used //bars no UE support Reps/Minutes 10 ft x2 laps Comments cued slow eccentric Neuro Re-Education Treatment Balance Activities step taps Equipment rail PRN, 6 step, 5# Reps/Duration x20 each Comments alternate BLEs fwd/bwd walking Details fwd/bkwd ambulation Equipment //bars PT-OP-T Assessment and Plan Start: 02/04/23 14:39 Freq: Status: Active Protocol: Document 03/13/23 12:15 DCW (Rec: 03/13/23 13:01 DCW [id number]) Physical Therapy Assessment Goals 3 Impairment 878 feet in 6MWT Snf Goal (LTG) Pt will gait train at least 1100 feet in 6 minutes with or without AD and no more than superv assistance to improve community gait distance. Improvin' LTG Duration 04/06/24 2 Impairment 12 reps STS in 30 sec with SBA Janitor Custodian Goal (LTG) Pt will perform at least 15 STS without UE support in 30 sec with no more than superv assistance with controlled descend to improve functional balance with transfers. 03/12/23: Progresssin StS in 30, SBA, minimal UE assist LTG Duration 04/06/23 1 Impairment TUG in 16 sec wtih CGA required Snf Goal (LTG) Pt will perform TUG in less than 10 sec with no more than superv assistance to decrease fall risk. 03/12/23: Improving: TUG in 11 .08 LTG Duration 04/06/24 Assessment Summary Assessment Pt put forth fantastic effort with minimal breaks throughout today's PT session, however very fatigued by the end. Demonstrated great improvement with balance challenges. Physical Therapy Plan Frequency and Duration Frequency of Treatment 2x/Week Duration of treatment (weeks) 8 Plan of Care Start Date 02/04/23 Plan of Care End Date 04/06/23 Therapeutic Interventions Therapeutic Interventions Balance Training,Canalithic Repositioning,Coordination Training,Gait Training,Home Exercise Program,Manual Therapy,Neuromuscular Re- education,Patient/Caregiver Education,Self-Care/Home Management,Therapeutic Activities,Therapeutic Exercises,Vestibular Rehabilitation Other Referrals/Consults Referrals/Consults Recommended Speech therapy for memory and speech Next Visit Focus/Plan Next Note Type Treatment Note Next Visit Plan Review HEP future appt: LAQ, Toe raises, STS, stand hip abd & ext, seated clamshell. POC: Continue balance exercises and training, keep an eye on orthostatics
--- NOTE | 2023-03-16 15:15 | PT.OTN ---
Current Diagnoses Parkinson's disease without dyskinesia, without mention of fluctuations (03/16/23) Physical Therapy Treatment Note PT-OP-A Visit Information Start: 02/04/23 14:39 Freq: Status: Active Protocol: Document 03/16/23 14:32 SP (Rec: 03/16/23 15:48 SP [id number]) Out-Patient Physical Therapy Visit Information Visit Information Visit Type Treatment Note Visit Note observed tx. Visit Start Time 14:32 Visit Stop Time 15:15 Total Visit Minutes 43 Visit Number 12 Number of BI DEVELOPER Visits 1 PT-OP-B Current Condition Start: 02/04/23 14:39 Freq: Status: Active Protocol: Document 02/04/23 14:49 MB (Rec: 02/04/23 16:04 MB [id number]) Current Condition History of Current Condition Onset Date Rachel, reports at least 2 years ago for PD diagnosis History of Current Condition Rachel, provides history and answers most questions. She states that pt was dx with PD about 2 years ago and started Carbidopa Levodopa last summer, about a year ago. Pt states, no when asked if he notices any improvement with the medication. states that he had improvements with shaking. He doesn't spill his tea as much. Pt states that the shaking was the biggest symptom he first noticed and states that he also shuffled his feet. states that he has had 3- 4 falls in the past year. He does have dizziness when he gets up. Pt had PT in the past after knee replacements. They cannot remember anything about it. Pt has not been driving. There are two steps and no rail to enter home. He can use the brick wall. PT notes that has big bruise on her right protestant and she reports a fall as well in the past week. She does the driving and the home care tasks. They have women's activities adviser and a supervisor painting shipyard. There is no family nearby. 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 He has a medication for this as well. He does not talk a lot. states that he has trouble making the words. takes care of all household tasks, managing money, etc. Pt only does his own bathing and dressing and he makes his cereal in the morning. He is able to boil water to make his own tea. Pt denies pain. 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 states that balancing is his biggest problem and that buttoning up shirts is difficult. Pt has history of CABGx5. Treatment Goals Patient/Caregiver Goals Verny: strengthening Tad's legs and balance is scary PT-OP-C Subjective Start: 02/04/23 14:39 Freq: Status: Active Protocol: Document 03/16/23 14:32 SP (Rec: 03/16/23 15:48 SP [id number]) OP-PT Subjective Patient Comments Patient Comments Pt tired after last tx, took a good nap per Pt's . PT-OP-D Balance Start: 02/04/23 14:39 Freq: Status: Active Protocol: Document 02/04/23 14:49 MB (Rec: 02/04/23 16:04 MB [id number]) Balance Tests Other Other Balance Tests Performed Pt has wide STEPAN and occ leans legs against the mat for static standing and cannot tolerate more narrow STEPAN standing TUG requires 16 sec and pt requires CGA to prevent falling when turning back to chair to sit, SBA for gait Pt performs 12 reps STS without UE support from standard level mat on eval with one LOB and SBA for safety in 30 sec PT-OP-G Mobility & Gait Start: 02/04/23 14:39 Freq: Status: Active Protocol: Document 02/04/23 14:49 MB (Rec: 02/04/23 16:04 MB [id number]) OP Gait Assessment Gait Gait Assistance Required: Standby Assistance Distance (Feet) 878 Able to Maintain Weight Bearing Status Yes During Gait Gait Deviations General Gait Pattern Festinating,Wide Based Gait Comments Gait Comments Pt requires SBA and one sitting rest break as well as cues for where to gait for 6MWT. He has shuffling stepping with less step- through with right LE PT-OP-H Neuro Start: 02/04/23 14:39 Freq: Status: Active Protocol: Document 02/04/23 14:49 MB (Rec: 02/04/23 16:04 MB [id number]) Coordination Evaluation Upper Extremity Tests Left Finger to Nose Test Minimal Impairment Pronation/Supination Test Minimal Impairment Right Finger to Nose Test Minimal Impairment Pronation/Supination Test Minimal Impairment Lower Extremity Tests Left Heel on Cortés Test Moderate Impairment Right Heel on Cortés Test Moderate Impairment Vital Signs Comments Vital Signs Comments Positive orthostatic hypotension with the following HR and BR in LUE: supine 136/ 72, 54; standing 108/65, 65; standing 1' 123/68, 61 PT-OP-Q Treatments Start: 02/04/23 14:39 Freq: Status: Active Protocol: Document 03/16/23 14:32 SP (Rec: 03/16/23 15:48 SP [id number]) Cardio Equipment Recumbent Stepper (Sci-Fit) Duration (Minutes) 6 Resistance 3.5 Seat Position 12>11 Other UEs&LEs - 55 RPMs BUE/LEs, 1. 02 miles Gait Training Gait Activity Dynamic gait Description f/b/head turns vertical& horizontal Device Used 0 Level of Assistance CG- close SBA Treatment Focus centering stability, increase foot clearance and stride Comments cued fwd wt shift in to front LE during LE advancement, maintain STEPAN LE away from each other, sways R and or scissor step R when R head turn at times. Neuro Re-Education Treatment Balance Activities squat ball/cone transfer Details cross body stability during squatting motions- assim picking up floor items Surface floor, blue mat Equipment 10 cones, 5 golf balls Reps/Duration 2 laps Comments cues for cross body, full stand between squat motions incline/decline Details ramp Equipment 6 step, wedges on either side , 2 hurdles Reps/Duration x4 laps Comments over/back, cued slow step pacing for stability. CG-10%A, improved stability Tandem Details NBOS, Semi-tandem tandem Surface Blue foam Equipment //bars not needed Comments 1. stationary 2. HTs 3. EC NBOS only 30 sec CGA- sways but no LOB4. 4. tandem LLE fwd 4 sec & 9 sec, RLE fwd 30 sec EO hurdles Details fwd- step 2 and receiprocal step patterning Surface 6 hurdles (outside //bars) Equipment (CGA- 10%A)- retro lean Reps/Duration x5 laps Comments Max cues for trail LE higher step/clearance slower pacing for allowance trail LE clearance, 4/5 hurdles trail L>RLE caught stella contact recovery + Min A. Cued stop, find stability then continue. 1 set perfect. fwd/bwd walking Details fwd/bkwd ambulation Equipment hallway Reps/Duration 20 ft x3 laps Comments cued arm swings, fwd COG wt shift during advancement fwd/ bwd with slower pacing. PT-OP-T Assessment and Plan Start: 02/04/23 14:39 Freq: Status: Active Protocol: Document 03/16/23 14:32 SP (Rec: 03/16/23 15:48 SP [id number]) Physical Therapy Assessment Goals 3 Impairment 878 feet in 6MWT Mud Mixer Goal (LTG) Pt will gait train at least 1100 feet in 6 minutes with or without AD and no more than superv assistance to improve community gait distance. Improvin' LTG Duration 04/06/24 2 Impairment 12 reps STS in 30 sec with SBA Mud Mixer Goal (LTG) Pt will perform at least 15 STS without UE support in 30 sec with no more than superv assistance with controlled descend to improve functional balance with transfers. 03/12/23: Progresssin StS in 30, SBA, minimal UE assist LTG Duration 04/06/23 1 Impairment TUG in 16 sec wtih CGA required Mud Mixer Goal (LTG) Pt will perform TUG in less than 10 sec with no more than superv assistance to decrease fall risk. 03/12/23: Improving: TUG in 11 .08 LTG Duration 04/06/24 Assessment Summary Assessment Pt worked hard with minimal breaks this tx. Challenged with receiprocal stepping, improved with cues for brief pause each LE advancement for stability recovery. Increased foot clearance and heel toe by end of tx. Education to pt, in agreement best if use arm swing during gait helps with trunk rotation and fwd STEPAN over COG. Pt improved trunk righting during more advance uneven incline/decline stella stepping this tx Min A > CGA with slower pacing. Physical Therapy Plan Frequency and Duration Frequency of Treatment 2x/Week Duration of treatment (weeks) 8 Plan of Care Start Date 02/04/23 Plan of Care End Date 04/06/23 Therapeutic Interventions Therapeutic Interventions Balance Training,Canalithic Repositioning,Coordination Training,Gait Training,Home Exercise Program,Manual Therapy,Neuromuscular Re- education,Patient/Caregiver Education,Self-Care/Home Management,Therapeutic Activities,Therapeutic Exercises,Vestibular Rehabilitation Other Referrals/Consults Referrals/Consults Recommended Speech therapy for memory and speech Next Visit Focus/Plan Next Note Type Treatment Note Next Visit Plan Assess increase dynamic balance activities last tx. POC: Continue balance exercises and training, keep an eye on orthostatics
--- NOTE | 2023-03-19 12:48 | PT.OTN ---
Current Diagnoses Parkinson's disease without dyskinesia, without mention of fluctuations (03/19/23) Physical Therapy Treatment Note PT-OP-A Visit Information Start: 02/04/23 14:39 Freq: Status: Active Protocol: Document 03/19/23 12:02 SP (Rec: 03/19/23 12:51 SP [id number]) Out-Patient Physical Therapy Visit Information Visit Information Visit Type Treatment Note Visit Note observed tx. Visit Start Time 12:02 Visit Stop Time 12:48 Total Visit Minutes 46 Visit Number 13 Number of VENEER GLUE JOINTER FEEDBACK Visits 2 PT-OP-B Current Condition Start: 02/04/23 14:39 Freq: Status: Active Protocol: Document 02/04/23 14:49 MB (Rec: 02/04/23 16:04 MB [id number]) Current Condition History of Current Condition Onset Date Rachel, reports at least 2 years ago for PD diagnosis History of Current Condition Rachel, provides history and answers most questions. She states that pt was dx with PD about 2 years ago and started Carbidopa Levodopa last summer, about a year ago. Pt states, no when asked if he notices any improvement with the medication. states that he had improvements with shaking. He doesn't spill his tea as much. Pt states that the shaking was the biggest symptom he first noticed and states that he also shuffled his feet. states that he has had 3- 4 falls in the past year. He does have dizziness when he gets up. Pt had PT in the past after knee replacements. They cannot remember anything about it. Pt has not been driving. There are two steps and no rail to enter home. He can use the brick wall. PT notes that has big bruise on her right episcopalian and she reports a fall as well in the past week. She does the driving and the home care tasks. They have geophysicist and a yard labor supervisor. There is no family nearby. 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 He has a medication for this as well. He does not talk a lot. states that he has trouble making the words. takes care of all household tasks, managing money, etc. Pt only does his own bathing and dressing and he makes his cereal in the morning. He is able to boil water to make his own tea. Pt denies pain. 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 states that balancing is his biggest problem and that buttoning up shirts is difficult. Pt has history of CABGx5. Treatment Goals Patient/Caregiver Goals Verny: strengthening Tad's legs and balance is scary PT-OP-C Subjective Start: 02/04/23 14:39 Freq: Status: Active Protocol: Document 03/19/23 12:02 SP (Rec: 03/19/23 12:51 SP [id number]) OP-PT Subjective Patient Comments Patient Comments Pt and report pt just tired after txs. states see little improvement in pt's balance but still sits fast and sometimes afraid he's going miss the chair. She states tries to give him cues as therapist does for backing up fully and slow sitting. No falls since starting PT. PT-OP-D Balance Start: 02/04/23 14:39 Freq: Status: Active Protocol: Document 02/04/23 14:49 MB (Rec: 02/04/23 16:04 MB [id number]) Balance Tests Other Other Balance Tests Performed Pt has wide STEPAN and occ leans legs against the mat for static standing and cannot tolerate more narrow STEPAN standing TUG requires 16 sec and pt requires CGA to prevent falling when turning back to chair to sit, SBA for gait Pt performs 12 reps STS without UE support from standard level mat on eval with one LOB and SBA for safety in 30 sec PT-OP-G Mobility & Gait Start: 02/04/23 14:39 Freq: Status: Active Protocol: Document 02/04/23 14:49 MB (Rec: 02/04/23 16:04 MB [id number]) OP Gait Assessment Gait Gait Assistance Required: Standby Assistance Distance (Feet) 878 Able to Maintain Weight Bearing Status Yes During Gait Gait Deviations General Gait Pattern Festinating,Wide Based Gait Comments Gait Comments Pt requires SBA and one sitting rest break as well as cues for where to gait for 6MWT. He has shuffling stepping with less step- through with right LE PT-OP-H Neuro Start: 02/04/23 14:39 Freq: Status: Active Protocol: Document 02/04/23 14:49 MB (Rec: 02/04/23 16:04 MB [id number]) Coordination Evaluation Upper Extremity Tests Left Finger to Nose Test Minimal Impairment Pronation/Supination Test Minimal Impairment Right Finger to Nose Test Minimal Impairment Pronation/Supination Test Minimal Impairment Lower Extremity Tests Left Heel on Cortés Test Moderate Impairment Right Heel on Cortés Test Moderate Impairment Vital Signs Comments Vital Signs Comments Positive orthostatic hypotension with the following HR and BR in LUE: supine 136/ 72, 54; standing 108/65, 65; standing 1' 123/68, 61 PT-OP-Q Treatments Start: 02/04/23 14:39 Freq: Status: Active Protocol: Document 03/19/23 12:02 SP (Rec: 03/19/23 12:51 SP [id number]) Cardio Equipment Recumbent Stepper (Sci-Fit) Duration (Minutes) 6 Resistance 3.5 Seat Position 12 Other UEs&LEs - 55 RPMs BUE/LEs, 0. 89 miles Therapeutic Exercises Sitting Exercises Toe raises Sitting Exercise Name HEP REviewed- Mod I Side bilateral Resistance 4# leg wt in PT (AROM home) Equipment Used seated mesh chair Reps/Minutes 2x10 Comments good form, RLE little less range hip abd Sitting Exercise Name added to HEP- able wrap band around/hold lat thigh Side bilateral Resistance GTB 2x10> blue TB [id number] for home Equipment Used mesh chair Reps/Minutes 2x10 Comments good slow pacing STS Sitting Exercise Name updated to BIG UE/trunk gross motor mv't Equipment Used mesh chair, arms on lap if needed Reps/Minutes 2x5 reps Comments cued reach front> over head into stand>anatomical pos > reverse ecc sit LAQ Sitting Exercise Name HEP reviewed Side bilateral Resistance 4# leg wt (in PT) Reps/Minutes 2x10 Comments cued scoot fully back chair Standing Exercises hip abd, ext Standing Exercise Name hip ext Side bilateral Resistance Yellow Equipment Used rail support Reps/Minutes x15 each Comments cued knee straight Therapeutic Activity Therapeutic Activity transfer training Name Ed safety transfers, sit/stand from chair Reps/Minutes 12 min, multiple reps between 2 chairs 20 ft apart Comments cued marching steps approach/ pivot turn and back up to chair fully, feel chair behind both knees reach out front then slow controlled sit reduced flops, arms front and wt shift fwd to come to stand, awareness stability wt shift into full foot (COG over STEPAN) before start walking. PT-OP-T Assessment and Plan Start: 02/04/23 14:39 Freq: Status: Active Protocol: Document 03/19/23 12:02 SP (Rec: 03/19/23 12:51 SP [id number]) Physical Therapy Assessment Goals 3 Impairment 878 feet in 6MWT Affiliate Marketing Coordinator Goal (LTG) Pt will gait train at least 1100 feet in 6 minutes with or without AD and no more than superv assistance to improve community gait distance. Improvin' LTG Duration 04/06/24 2 Impairment 12 reps STS in 30 sec with SBA Affiliate Marketing Coordinator Goal (LTG) Pt will perform at least 15 STS without UE support in 30 sec with no more than superv assistance with controlled descend to improve functional balance with transfers. 03/12/23: Progresssin StS in 30, SBA, minimal UE assist 03/19/23: pt improved use of UEs front come to stand and sit with cues for slow descend even last 1 to sit in chair 18, able perform with reps. LTG Duration 04/06/23 progressing 03/19/23 1 Impairment TUG in 16 sec wtih CGA required Affiliate Marketing Coordinator Goal (LTG) Pt will perform TUG in less than 10 sec with no more than superv assistance to decrease fall risk. 03/12/23: Improving: TUG in 11 .08 LTG Duration 04/06/24 Assessment Summary Assessment Tx focused on HEP review for I , use of reprinted HOs occasional cues for full extension during LAQ and hip abd understanding use TB resistance, proper don TB wrapping and hold side thighs. Pt progress safety during transfers, improved full step back to chair and slow descend (no flop/fall into chair) last 1 post multiple sets during tx with BUE out front best supported. Physical Therapy Plan Frequency and Duration Frequency of Treatment 2x/Week Duration of treatment (weeks) 8 Plan of Care Start Date 02/04/23 Plan of Care End Date 04/06/23 Therapeutic Interventions Therapeutic Interventions Balance Training,Canalithic Repositioning,Coordination Training,Gait Training,Home Exercise Program,Manual Therapy,Neuromuscular Re- education,Patient/Caregiver Education,Self-Care/Home Management,Therapeutic Activities,Therapeutic Exercises,Vestibular Rehabilitation Other Referrals/Consults Referrals/Consults Recommended Speech therapy for memory and speech Next Visit Focus/Plan Next Note Type Treatment Note Next Visit Plan Continue safe sit/stand transfers. POC: Continue dynamic balance exercises and training, keep an eye on orthostatics
--- NOTE | 2023-03-24 13:00 | PT.OTN ---
Current Diagnoses Parkinson's disease without dyskinesia, without mention of fluctuations (03/24/23) Physical Therapy Treatment Note PT-OP-A Visit Information Start: 02/04/23 14:39 Freq: Status: Active Protocol: Document 03/24/23 12:18 SP (Rec: 03/24/23 13:02 SP [id number]) Out-Patient Physical Therapy Visit Information Visit Information Visit Type Treatment Note Visit Note observed tx. Visit Start Time 12:18 Visit Stop Time 13:00 Total Visit Minutes 42 Visit Number 14 Number of SALES REPRESENTATIVE GROCERIES Visits 3 PT-OP-B Current Condition Start: 02/04/23 14:39 Freq: Status: Active Protocol: Document 02/04/23 14:49 MB (Rec: 02/04/23 16:04 MB [id number]) Current Condition History of Current Condition Onset Date Rachel, reports at least 2 years ago for PD diagnosis History of Current Condition Rachel, provides history and answers most questions. She states that pt was dx with PD about 2 years ago and started Carbidopa Levodopa last summer, about a year ago. Pt states, no when asked if he notices any improvement with the medication. states that he had improvements with shaking. He doesn't spill his tea as much. Pt states that the shaking was the biggest symptom he first noticed and states that he also shuffled his feet. states that he has had 3- 4 falls in the past year. He does have dizziness when he gets up. Pt had PT in the past after knee replacements. They cannot remember anything about it. Pt has not been driving. There are two steps and no rail to enter home. He can use the brick wall. PT notes that has big bruise on her right worship and she reports a fall as well in the past week. She does the driving and the home care tasks. They have clinic mgr and a yard manager. There is no family nearby. 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 He has a medication for this as well. He does not talk a lot. states that he has trouble making the words. takes care of all household tasks, managing money, etc. Pt only does his own bathing and dressing and he makes his cereal in the morning. He is able to boil water to make his own tea. Pt denies pain. 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 states that balancing is his biggest problem and that buttoning up shirts is difficult. Pt has history of CABGx5. Treatment Goals Patient/Caregiver Goals Verny: strengthening Tad's legs and balance is scary PT-OP-C Subjective Start: 02/04/23 14:39 Freq: Status: Active Protocol: Document 03/24/23 12:18 SP (Rec: 03/24/23 13:02 SP [id number]) OP-PT Subjective Patient Comments Patient Comments reports his chair at home isn't pushed back (happens when sits to hard/quick). Pt states doing ok today. PT-OP-D Balance Start: 02/04/23 14:39 Freq: Status: Active Protocol: Document 02/04/23 14:49 MB (Rec: 02/04/23 16:04 MB [id number]) Balance Tests Other Other Balance Tests Performed Pt has wide STEPAN and occ leans legs against the mat for static standing and cannot tolerate more narrow STEPAN standing TUG requires 16 sec and pt requires CGA to prevent falling when turning back to chair to sit, SBA for gait Pt performs 12 reps STS without UE support from standard level mat on eval with one LOB and SBA for safety in 30 sec PT-OP-G Mobility & Gait Start: 02/04/23 14:39 Freq: Status: Active Protocol: Document 02/04/23 14:49 MB (Rec: 02/04/23 16:04 MB [id number]) OP Gait Assessment Gait Gait Assistance Required: Standby Assistance Distance (Feet) 878 Able to Maintain Weight Bearing Status Yes During Gait Gait Deviations General Gait Pattern Festinating,Wide Based Gait Comments Gait Comments Pt requires SBA and one sitting rest break as well as cues for where to gait for 6MWT. He has shuffling stepping with less step- through with right LE PT-OP-H Neuro Start: 02/04/23 14:39 Freq: Status: Active Protocol: Document 02/04/23 14:49 MB (Rec: 02/04/23 16:04 MB [id number]) Coordination Evaluation Upper Extremity Tests Left Finger to Nose Test Minimal Impairment Pronation/Supination Test Minimal Impairment Right Finger to Nose Test Minimal Impairment Pronation/Supination Test Minimal Impairment Lower Extremity Tests Left Heel on Cortés Test Moderate Impairment Right Heel on Cortés Test Moderate Impairment Vital Signs Comments Vital Signs Comments Positive orthostatic hypotension with the following HR and BR in LUE: supine 136/ 72, 54; standing 108/65, 65; standing 1' 123/68, 61 PT-OP-Q Treatments Start: 02/04/23 14:39 Freq: Status: Active Protocol: Document 03/24/23 12:18 SP (Rec: 03/24/23 13:02 SP [id number]) Therapeutic Exercises Sitting Exercises STS Sitting Exercise Name assessing goal Equipment Used mesh chair use BUEs on chair arms Reps/Minutes 7.5 reps in 30 sec c/ UEs, 5x STS x2 sets reach fwd/hip hinge Comments assess goal, initial STS LOB back needed use BUEs, improves with reps Gait Training Gait Activity Dynamic gait Description f/b/head turns vertical& horizontal, back walking Device Used 0 Level of Assistance CG- close SBA Treatment Focus centering stability, increase foot clearance and stride Comments improved stability with cues soft/quiet steps. 6MWT Description 4 min 52 sec. Device Used 0 Level of Assistance SBA Distance/Duration 773 ft Treatment Focus increase stride, foot clearance, Comments + SOB: 142/68 HR 55 seated post 1.5 min before BP cuff gave reading. Neuro Re-Education Treatment Balance Activities Tandem Details NBOS, Semi-tandem tandem Surface Blue foam Equipment //bars PRN contact Comments 1. stationary 2. HTs 3. EC NBOS only 4 sec CGA, sways opens eyes for stability 4. tandem EO: LLE fwd 30 sec, RLE fwd 6, 7 sec- cued tall, core/scapmus engagement over STEPAN step up/back down Surface 4# leg wt Equipment 6 step, PRN hand rail Reps/Duration 5 reps each LE Comments cued soft stepping, bigger step back to allow clearance and stability- CG-Camryn due to LOB retro stepping back LLE after just patterned RLE up/ back down. step taps Equipment //bar PRN, 6 step, 4#leg wt Reps/Duration 10 reps each LE Comments LOB retro to L during repostioning LLE back down. Min A recovery. Cued for slower pacing and tall posturing. PT-OP-T Assessment and Plan Start: 02/04/23 14:39 Freq: Status: Active Protocol: Document 03/24/23 12:18 SP (Rec: 03/24/23 13:02 SP [id number]) Physical Therapy Assessment Goals 3 Impairment 878 feet in 6MWT Tower Equipment Repairer Goal (LTG) Pt will gait train at least 1100 feet in 6 minutes with or without AD and no more than superv assistance to improve community gait distance. Improvin' 03/24/23: Pt unable tolerate full 6MWT, 773 ft in 4 min52 sec, + SOB and decreased stride and ft clearance noted. LTG Duration 04/06/24 slow progression 2 Impairment 12 reps STS in 30 sec with SBA Usp Goal (LTG) Pt will perform at least 15 STS without UE support in 30 sec with no more than superv assistance with controlled descend to improve functional balance with transfers. 03/12/23: Progresssin StS in 30, SBA, minimal UE assist 03/19/23: pt improved use of UEs front come to stand and sit with cues for slow descend even last 1 to sit in chair 18, able perform with reps. 03/24/23: initial stand LOB back into chair, decreased reps STS 7.5 reps in 30 sec w/ min use BUEs, pt more retro leaning today. Time spent post assessment use BIG arms wt shift fwd come stand and cues slower sit for safety descend no UE support. LTG Duration 04/06/23 progressing 03/24/23 1 Impairment TUG in 16 sec wtih CGA required Tower Equipment Repairer Goal (LTG) Pt will perform TUG in less than 10 sec with no more than superv assistance to decrease fall risk. 03/12/23: Improving: TUG in 11 .08 LTG Duration 04/06/24 Assessment Summary Assessment Pt improved slow descend sit with reps and time spent cues to 18 chair able. Pt improves initial gait distance foot clearance cues for soft stepping and arm swing but decreased endurance gait during trial 6MWT, requires sit prior to end with + SOB and contact cues as needed last few feet more upright posture, increase stride/foot clearance, decrease of 130ish feet today. BP LUE automated within normal range and reports no dizziness post gait . Physical Therapy Plan Frequency and Duration Frequency of Treatment 2x/Week Duration of treatment (weeks) 8 Plan of Care Start Date 02/04/23 Plan of Care End Date 04/06/23 Therapeutic Interventions Therapeutic Interventions Balance Training,Canalithic Repositioning,Coordination Training,Gait Training,Home Exercise Program,Manual Therapy,Neuromuscular Re- education,Patient/Caregiver Education,Self-Care/Home Management,Therapeutic Activities,Therapeutic Exercises,Vestibular Rehabilitation Other Referrals/Consults Referrals/Consults Recommended Speech therapy for memory and speech Next Visit Focus/Plan Next Note Type Treatment Note Next Visit Plan Update POC in 2 visits, assess if more appts. Continue safe sit/stand transfers. POC: Continue dynamic balance exercises and training, keep an eye on orthostatics
--- NOTE | 2023-03-26 14:30 | PT.OTN ---
Current Diagnoses Parkinson's disease without dyskinesia, without mention of fluctuations (03/26/23) Physical Therapy Treatment Note PT-OP-A Visit Information Start: 02/04/23 14:39 Freq: Status: Active Protocol: Document 03/26/23 13:52 SP (Rec: 03/26/23 14:34 SP [id number]) Out-Patient Physical Therapy Visit Information Visit Information Visit Type Treatment Note Visit Start Time 13:52 Visit Stop Time 14:30 Total Visit Minutes 38 Visit Number 15 Number of ETHYLENE PLANT HELPER Visits 4 PT-OP-B Current Condition Start: 02/04/23 14:39 Freq: Status: Active Protocol: Document 02/04/23 14:49 MB (Rec: 02/04/23 16:04 MB [id number]) Current Condition History of Current Condition Onset Date Rachel, reports at least 2 years ago for PD diagnosis History of Current Condition Rachel, provides history and answers most questions. She states that pt was dx with PD about 2 years ago and started Carbidopa Levodopa last summer, about a year ago. Pt states, no when asked if he notices any improvement with the medication. states that he had improvements with shaking. He doesn't spill his tea as much. Pt states that the shaking was the biggest symptom he first noticed and states that he also shuffled his feet. states that he has had 3- 4 falls in the past year. He does have dizziness when he gets up. Pt had PT in the past after knee replacements. They cannot remember anything about it. Pt has not been driving. There are two steps and no rail to enter home. He can use the brick wall. PT notes that has big bruise on her right jainism and she reports a fall as well in the past week. She does the driving and the home care tasks. They have offal trimmer and a shipyard painter. There is no family nearby. 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 He has a medication for this as well. He does not talk a lot. states that he has trouble making the words. takes care of all household tasks, managing money, etc. Pt only does his own bathing and dressing and he makes his cereal in the morning. He is able to boil water to make his own tea. Pt denies pain. 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 states that balancing is his biggest problem and that buttoning up shirts is difficult. Pt has history of CABGx5. Treatment Goals Patient/Caregiver Goals Verny: strengthening Tad's legs and balance is scary PT-OP-C Subjective Start: 02/04/23 14:39 Freq: Status: Active Protocol: Document 03/26/23 13:52 SP (Rec: 03/26/23 14:34 SP [id number]) OP-PT Subjective Patient Comments Patient Comments Pt reports doing ok today. stated his chair isn't moving back when sit quite as far, little better slower sitting. She reports when out walking in commmunity states still sees shuffle walking. PT-OP-D Balance Start: 02/04/23 14:39 Freq: Status: Active Protocol: Document 02/04/23 14:49 MB (Rec: 02/04/23 16:04 MB [id number]) Balance Tests Other Other Balance Tests Performed Pt has wide STEPAN and occ leans legs against the mat for static standing and cannot tolerate more narrow STEPAN standing TUG requires 16 sec and pt requires CGA to prevent falling when turning back to chair to sit, SBA for gait Pt performs 12 reps STS without UE support from standard level mat on eval with one LOB and SBA for safety in 30 sec PT-OP-G Mobility & Gait Start: 02/04/23 14:39 Freq: Status: Active Protocol: Document 02/04/23 14:49 MB (Rec: 02/04/23 16:04 MB [id number]) OP Gait Assessment Gait Gait Assistance Required: Standby Assistance Distance (Feet) 878 Able to Maintain Weight Bearing Status Yes During Gait Gait Deviations General Gait Pattern Festinating,Wide Based Gait Comments Gait Comments Pt requires SBA and one sitting rest break as well as cues for where to gait for 6MWT. He has shuffling stepping with less step- through with right LE PT-OP-H Neuro Start: 02/04/23 14:39 Freq: Status: Active Protocol: Document 02/04/23 14:49 MB (Rec: 02/04/23 16:04 MB [id number]) Coordination Evaluation Upper Extremity Tests Left Finger to Nose Test Minimal Impairment Pronation/Supination Test Minimal Impairment Right Finger to Nose Test Minimal Impairment Pronation/Supination Test Minimal Impairment Lower Extremity Tests Left Heel on Cortés Test Moderate Impairment Right Heel on Cortés Test Moderate Impairment Vital Signs Comments Vital Signs Comments Positive orthostatic hypotension with the following HR and BR in LUE: supine 136/ 72, 54; standing 108/65, 65; standing 1' 123/68, 61 PT-OP-Q Treatments Start: 02/04/23 14:39 Freq: Status: Active Protocol: Document 03/26/23 13:52 SP (Rec: 03/26/23 14:34 SP [id number]) Cardio Equipment Recumbent Stepper (Sci-Fit) Duration (Minutes) 6 Resistance 3.5 Seat Position 12 Other UEs&LEs - 55 RPMs BUE/LEs, 0. 89 miles Gym Equipment Shuttle Recovery Unilateral squat Resistance 37 #> 50 # (1 new band) Shuttle Recovery Platform Stable Reps/Time x10 each B squat Details cued not locking extension Resistance 75# (3 new bands) Shuttle Recovery Platform Stable Reps/Time x15 Shuttle Balance Red Details WBOS, Staggered Comments wts shift, stationary HTs x3 reps CG- Min A, BUE>1 UE>4 sec no UE support Therapeutic Exercises Standing Exercises calf stretch Side bilateral Equipment Used MANDEEP Reps/Minutes 30 x2 each LE Comments rail support Other Exercises Resisted Ambulation Other Exercise Name Resisted side-stepping Resistance GTB Equipment Used PRN facing rail Reps/Minutes 10 ft x2 laps Comments cued slow eccentric /c taller posture Gait Training Gait Activity gait Device Used 0 Level of Assistance SBA Distance/Duration 3 laps around clinic (170 ft each) Treatment Focus increase ft clearance, stride, arm swing Comments forgot metronome 03/05/23 ( last tx 90>93bpm) Cued increase ft clearance, larger stride, slower breath ( good performance), arm swing wt shift fwd into front foot when walking, small decrease in retro/PPT posturing. Neuro Re-Education Treatment Balance Activities TUG Comments 03/12/23: Three-trial average ( 11.11, 10.94, 11.18) 03/26/23: 1st (to far) 20 sec, UE support, 18, cued now do with quicker speed 13 , 12 sec. PT-OP-T Assessment and Plan Start: 02/04/23 14:39 Freq: Status: Active Protocol: Document 03/26/23 13:52 SP (Rec: 03/26/23 14:34 SP [id number]) Physical Therapy Assessment Goals 3 Impairment 878 feet in 6MWT Construction Equipment Mechanic Helper Goal (LTG) Pt will gait train at least 1100 feet in 6 minutes with or without AD and no more than superv assistance to improve community gait distance. Improvin' 03/24/23: Pt unable tolerate full 6MWT, 773 ft in 4 min52 sec, + SOB and decreased stride and ft clearance noted. LTG Duration 04/06/24 slow progression 2 Impairment 12 reps STS in 30 sec with SBA Fci Goal (LTG) Pt will perform at least 15 STS without UE support in 30 sec with no more than superv assistance with controlled descend to improve functional balance with transfers. 03/12/23: Progresssin StS in 30, SBA, minimal UE assist 03/19/23: pt improved use of UEs front come to stand and sit with cues for slow descend even last 1 to sit in chair 18, able perform with reps. 03/24/23: initial stand LOB back into chair, decreased reps STS 7.5 reps in 30 sec w/ min use BUEs, pt more retro leaning today. Time spent post assessment use BIG arms wt shift fwd come stand and cues slower sit for safety descend no UE support. LTG Duration 04/06/23 progressing 03/24/23 1 Impairment TUG in 16 sec wtih CGA required Fci Goal (LTG) Pt will perform TUG in less than 10 sec with no more than superv assistance to decrease fall risk. 03/12/23: Improving: TUG in 11 .08 03/26/23: TUG 20sec, 18sec, cued safe but increase speed. 13 sec, 12 sec. LTG Duration 04/06/24 slow progression Assessment Summary Assessment Pt demonstrates good effort with ther ex, able to increase resistance. He requires cues for safety slower pacing and states noticing more instances less quick descent to sit in chair at home. She also gives him cues. Physical Therapy Plan Frequency and Duration Frequency of Treatment 2x/Week Duration of treatment (weeks) 8 Plan of Care Start Date 02/04/23 Plan of Care End Date 04/06/23 Therapeutic Interventions Therapeutic Interventions Balance Training,Canalithic Repositioning,Coordination Training,Gait Training,Home Exercise Program,Manual Therapy,Neuromuscular Re- education,Patient/Caregiver Education,Self-Care/Home Management,Therapeutic Activities,Therapeutic Exercises,Vestibular Rehabilitation Other Referrals/Consults Referrals/Consults Recommended Speech therapy for memory and speech Next Visit Focus/Plan Next Note Type Treatment Note Next Visit Plan Update POC next visist, assess if more appts. Continue safe sit/stand transfers. POC: Continue dynamic balance exercises and training, keep an eye on orthostatics
--- NOTE | 2023-03-30 12:45 | PT.OTN ---
Current Diagnoses Parkinson's disease without dyskinesia, without mention of fluctuations (03/30/23) Physical Therapy Treatment Note PT-OP-A Visit Information Start: 02/04/23 14:39 Freq: Status: Active Protocol: Document 03/30/23 12:00 DCW (Rec: 03/30/23 12:45 DCW [id number]) Out-Patient Physical Therapy Visit Information Visit Information Visit Type Treatment Note Visit Start Time 12:00 Visit Stop Time 12:45 Total Visit Minutes 45 Visit Number 16 Number of INSURANCE BILLER Visits 0 PT-OP-B Current Condition Start: 02/04/23 14:39 Freq: Status: Active Protocol: Document 02/04/23 14:49 MB (Rec: 02/04/23 16:04 MB [id number]) Current Condition History of Current Condition Onset Date Rachel, reports at least 2 years ago for PD diagnosis History of Current Condition Rachel, provides history and answers most questions. She states that pt was dx with PD about 2 years ago and started Carbidopa Levodopa last summer, about a year ago. Pt states, no when asked if he notices any improvement with the medication. states that he had improvements with shaking. He doesn't spill his tea as much. Pt states that the shaking was the biggest symptom he first noticed and states that he also shuffled his feet. states that he has had 3- 4 falls in the past year. He does have dizziness when he gets up. Pt had PT in the past after knee replacements. They cannot remember anything about it. Pt has not been driving. There are two steps and no rail to enter home. He can use the brick wall. PT notes that has big bruise on her right restorationism and she reports a fall as well in the past week. She does the driving and the home care tasks. They have government program manager and a woodyard crane operator. There is no family nearby. 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 He has a medication for this as well. He does not talk a lot. states that he has trouble making the words. takes care of all household tasks, managing money, etc. Pt only does his own bathing and dressing and he makes his cereal in the morning. He is able to boil water to make his own tea. Pt denies pain. 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 states that balancing is his biggest problem and that buttoning up shirts is difficult. Pt has history of CABGx5. Treatment Goals Patient/Caregiver Goals Verny: strengthening Tad's legs and balance is scary PT-OP-C Subjective Start: 02/04/23 14:39 Freq: Status: Active Protocol: Document 03/30/23 12:00 DCW (Rec: 03/30/23 12:45 DCW [id number]) OP-PT Subjective Patient Comments Patient Comments Pt doing pretty well today, no complaints. Feels he has been seeing good improvement. PT-OP-D Balance Start: 02/04/23 14:39 Freq: Status: Active Protocol: Document 02/04/23 14:49 MB (Rec: 02/04/23 16:04 MB [id number]) Balance Tests Other Other Balance Tests Performed Pt has wide STEPAN and occ leans legs against the mat for static standing and cannot tolerate more narrow STEPAN standing TUG requires 16 sec and pt requires CGA to prevent falling when turning back to chair to sit, SBA for gait Pt performs 12 reps STS without UE support from standard level mat on eval with one LOB and SBA for safety in 30 sec PT-OP-G Mobility & Gait Start: 02/04/23 14:39 Freq: Status: Active Protocol: Document 02/04/23 14:49 MB (Rec: 02/04/23 16:04 MB [id number]) OP Gait Assessment Gait Gait Assistance Required: Standby Assistance Distance (Feet) 878 Able to Maintain Weight Bearing Status Yes During Gait Gait Deviations General Gait Pattern Festinating,Wide Based Gait Comments Gait Comments Pt requires SBA and one sitting rest break as well as cues for where to gait for 6MWT. He has shuffling stepping with less step- through with right LE PT-OP-H Neuro Start: 02/04/23 14:39 Freq: Status: Active Protocol: Document 02/04/23 14:49 MB (Rec: 02/04/23 16:04 MB [id number]) Coordination Evaluation Upper Extremity Tests Left Finger to Nose Test Minimal Impairment Pronation/Supination Test Minimal Impairment Right Finger to Nose Test Minimal Impairment Pronation/Supination Test Minimal Impairment Lower Extremity Tests Left Heel on Cortés Test Moderate Impairment Right Heel on Cortés Test Moderate Impairment Vital Signs Comments Vital Signs Comments Positive orthostatic hypotension with the following HR and BR in LUE: supine 136/ 72, 54; standing 108/65, 65; standing 1' 123/68, 61 PT-OP-Q Treatments Start: 02/04/23 14:39 Freq: Status: Active Protocol: Document 03/30/23 12:00 DCW (Rec: 03/30/23 12:45 DCW [id number]) Cardio Equipment Recumbent Stepper (Sci-Fit) Duration (Minutes) 6 Resistance 3.5 Seat Position 10 Other UEs&LEs - 50 RPMs BUE/LEs, 0. 73 miles Gym Equipment Shuttle Balance Red Details WBOS, Staggered Comments wts shift, horizontal head turns Therapeutic Exercises Standing Exercises calf stretch Side bilateral Equipment Used MANDEEP Reps/Minutes 30 x2 each LE Comments rail support Other Exercises Resisted Ambulation Other Exercise Name Resisted side-stepping Resistance GTB Equipment Used PRN facing rail Reps/Minutes 10 ft x2 laps Comments cued slow eccentric Neuro Re-Education Treatment Balance Activities Tandem Details NBOS, Semi-tandem Surface Blue foam Equipment //bars PRN contact Comments 1. stationary 2. HTs 3. EC NBOS only 4 sec CGA, sways opens eyes for stability hurdles Details receiprocal step patterning Surface 6 hurdles (// bars) Equipment (CGA- 10%A)- retro lean Reps/Duration x5 laps Comments Fwd, Side-stepping step up/back down Surface 5# leg wt Equipment 6 step, PRN hand rail Reps/Duration 5 reps each LE step taps Equipment //bar PRN, 6 step, 5#leg wt Reps/Duration 20 reps each LE PT-OP-T Assessment and Plan Start: 02/04/23 14:39 Freq: Status: Active Protocol: Document 03/30/23 12:00 DCW (Rec: 03/30/23 12:45 DCW [id number]) Physical Therapy Assessment Goals 3 Impairment 878 feet in 6MWT Nuclear Weapons Specialist Goal (LTG) Pt will gait train at least 1100 feet in 6 minutes with or without AD and no more than superv assistance to improve community gait distance. Improvin' 03/24/23: Pt unable tolerate full 6MWT, 773 ft in 4 min52 sec, + SOB and decreased stride and ft clearance noted. LTG Duration 04/06/24 slow progression 2 Impairment 12 reps STS in 30 sec with SBA Nuclear Weapons Specialist Goal (LTG) Pt will perform at least 15 STS without UE support in 30 sec with no more than superv assistance with controlled descend to improve functional balance with transfers. 03/12/23: Progresssin StS in 30, SBA, minimal UE assist 03/19/23: pt improved use of UEs front come to stand and sit with cues for slow descend even last 1 to sit in chair 18, able perform with reps. 03/24/23: initial stand LOB back into chair, decreased reps STS 7.5 reps in 30 sec w/ min use BUEs, pt more retro leaning today. Time spent post assessment use BIG arms wt shift fwd come stand and cues slower sit for safety descend no UE support. LTG Duration 04/06/23 progressing 03/24/23 1 Impairment TUG in 16 sec wtih CGA required Nuclear Weapons Specialist Goal (LTG) Pt will perform TUG in less than 10 sec with no more than superv assistance to decrease fall risk. 03/12/23: Improving: TUG in .08 03/26/23: TUG 20sec, 18sec, cued safe but increase speed. 13 sec, 12 sec. LTG Duration 04/06/24 slow progression Assessment Summary Assessment At end of session, pt admitted that life is too hectic right now with upcoming holidays, and he would prefer to take a break from PT. Discussed with patient and , they understand that as Parkinson's likely progresses, pt will need to return to skilled therapy at a later date. Understand that he will be discharged at this time, and will require a new referral in the future. Physical Therapy Plan Frequency and Duration Frequency of Treatment 2x/Week Duration of treatment (weeks) 8 Plan of Care Start Date 02/04/23 Plan of Care End Date 04/06/23 Therapeutic Interventions Therapeutic Interventions Balance Training,Canalithic Repositioning,Coordination Training,Gait Training,Home Exercise Program,Manual Therapy,Neuromuscular Re- education,Patient/Caregiver Education,Self-Care/Home Management,Therapeutic Activities,Therapeutic Exercises,Vestibular Rehabilitation Other Referrals/Consults Referrals/Consults Recommended Speech therapy for memory and speech Discharge Physical Therapy Discharge Reasons Patient Request Next Visit Focus/Plan Next Note Type Discharge Summary
== END 2023-04-01 10:15 | disposition home or self-care (01) ==
LOC: PHYS 12:00
PROVIDERS: Family Provider Family Medicine; PCP Family Medicine; Referring Provider Psychiatry & Neurology Neurology; Visit Provider Psychiatry & Neurology Neurology
DX: G20.A1 Parkinson's disease without dyskinesia, without mention of fluctuations (principal)
CPT/HCPCS: 97110; 97112; 97116; 97163; 97530

== ENCOUNTER → 2023-10-21 10:09 | Outpatient (CLI) | payer BC, SELFPAY ==
[2023-10-21 11:22] LABS: Hemoglobin 14.6 g/dL (13.5-17.5); Mean Corpuscular HGB Conc 33.9 % (30-36); Mean Corpuscular Hemoglobin 32.6 PG (26-34); Mean Corpuscular Volume 96.2 fL (80-100); Platelet Count 273 X10^3/uL (150-400); Red Blood Cell Count 4.47 X10^6/uL (4.5-5.9); Red Cell Distribution Width 14.5 % (11.6-14.8); White Blood Cell Count 7.4 X10^3/uL (4.5-11.0)
[2023-10-21 11:37] LABS: BUN Creatinine Ratio 19.6 (6-22); Blood Urea Nitrogen 19 mg/dL (9-20); Calcium 8.7 mg/dL (8.4-10.2); Carbon Dioxide 27 mmol/L (22-32); Chloride 112 mmol/L (98-107); Cholesterol 162 mg/dL (140-199); Estimated Glomerular Filt Rate > 60 mL/min (>60); Glucose 95 mg/dL (80-110); HDL Cholesterol 44 mg/dL (40-60); HEMOLYSIS < 15 (0-50); LDL Cholesterol Calculated 90 mg/dL (<100); Potassium 4.4 mmol/L (3.4-5.1); Sodium 144 mmol/L (137-145); Triglycerides 138 mg/dL (35-150)
== END ==
LOC: LAB 10:10
PROVIDERS: Family Provider Family Medicine; PCP Family Medicine; Referring Provider Internal Medicine Cardiovascular Disease; Visit Provider Internal Medicine Cardiovascular Disease
DX: E78.5 Hyperlipidemia, unspecified (principal); I10 Essential (primary) hypertension; I25.10 Atherosclerotic heart disease of native coronary artery without angina pectoris
CPT/HCPCS: 36415; 80048; 80061; 85027

== ENCOUNTER → 2023-11-27 14:36 | Outpatient (CLI) | payer BC, SELFPAY ==
[2023-11-27 16:35] LABS: TSH w/ Reflex to FT4 1.29 uIU/mL (0.47-4.68)
== END ==
PROVIDERS: Family Provider Family Medicine; PCP Family Medicine; Referring Provider Family Medicine; Visit Provider Family Medicine
DX: E03.9 Hypothyroidism, unspecified (principal)
CPT/HCPCS: 84443

== ENCOUNTER 2024-02-25 14:00 | Emergency (ER) | payer BC, SELFPAY ==
[2024-02-25] VITALS (13 sets, daily range): BP systolic 100–138; BP diastolic 57–89; PULSE 77–125; RESP 10–30; TEMP 37.2; O2SAT 96–100; BMI 22.8
--- NOTE | 2024-02-25 14:13 | DI.RAD.S_ITS ---
PROCEDURE: XR CHEST 1V INDICATIONS: chest pain TECHNIQUE: One view of the chest was acquired. COMPARISON: [facility], CR, XR CHEST 1V, 07/13/2022, 14:51. [facility], CR, XR CHEST 1V, 02/15/2020, 15:35. FINDINGS: Surgical changes and devices: Post median sternotomy and CABG. Lungs and pleura: Lungs are clear. No pleural effusions or pneumothorax. Mediastinum: Mediastinal contours appear normal. Heart size is normal. Bones and chest wall: No suspicious bony lesions. Overlying soft tissues appear unremarkable. IMPRESSION: No acute cardiopulmonary abnormality is seen. Dictated by: Elvis Wyatt M.D. on 02/25/2024 at 16:22 Approved by: Elvis Wyatt M.D. on 02/25/2024 at 16:23
[2024-02-25 14:20] LABS: Add Manual Diff / Slide Review NO; Basophils Absolute Auto 0 /uL (0-100); Basophils Percent Auto 0.3 % (0-2); Eosinophils Absolute Auto 0 /uL (0-450); Eosinophils Percent Auto 0.2 % (2-4); Hematocrit 40.4 % (41-53); Hemoglobin 13.8 g/dL (13.5-17.5); INR 1.3 (0.9-1.3); Lymphocytes Absolute Auto 1700 /uL (1100-4500); Lymphocytes Percent Auto 21.1 % (25-40); Mean Corpuscular HGB Conc 34.3 % (30-36); Mean Corpuscular Hemoglobin 33.2 PG (26-34); Mean Corpuscular Volume 96.7 fL (80-100); Monocytes Absolute Auto 400 /uL (0-900); Monocytes Percent Auto 5.3 % (3-14); Neutrophils Absolute Auto 5900 /uL (1500-7000); Neutrophils Percent Auto 73.1 % (50-75); Platelet Count 218 X10^3/uL (150-400); Prothrombin Time 15.5 SECONDS (9.4-12.5); Red Blood Cell Count 4.17 X10^6/uL (4.5-5.9); Red Cell Distribution Width 13.5 % (11.6-14.8); White Blood Cell Count 8.1 X10^3/uL (4.5-11.0)
[2024-02-25 14:22] LABS: PTT Partial Thromboplastin Tim 34 SECONDS (25.1-36.5)
[2024-02-25 14:24] LABS: Alanine Aminotransferase 32 IU/L (<50); Albumin Globulin Ratio 1.7 (1.0-2.8); Alkaline Phosphatase 82 U/L (38-126); Aspartate Aminotransferase 28 IU/L (17-59); BUN Creatinine Ratio 11.8 (6-22); Bilirubin Total 1.2 mg/dL (0.2-1.3); Blood Urea Nitrogen 12 mg/dL (9-20); Calcium 8.9 mg/dL (8.4-10.2); Carbon Dioxide 19 mmol/L (22-32); Chloride 103 mmol/L (98-107); Creatine Kinase 49 U/L (55-170); Estimated Glomerular Filt Rate > 60 mL/min (>60); Globulin 2.4 g/dL (1.7-4.1); Glucose 150 mg/dL (80-110); HEMOLYSIS < 15 (0-50); Lipase 99 U/L (23-300); Magnesium 1.7 mg/dL (1.6-2.3); Potassium 3.6 mmol/L (3.4-5.1); Sodium 136 mmol/L (137-145); Total Protein 6.4 g/dL (6.3-8.2)
--- NOTE | 2024-02-25 14:26 | EKG_ITS ---
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
[2024-02-25 14:36] LABS: NT-proBNP (BNP-Adult 18+) 4170 pg/mL (<450); Troponin I < 0.012 ng/mL (0.01-0.034)
[2024-02-25 17:13] LABS: Appearance Urine UA CLEAR; Bilirubin Urine UA NEGATIVE (NEGATIVE); Color Urine UA YELLOW; Glucose Urine UA NEGATIVE (Negative); Ketones Urine UA NEGATIVE (NEGATIVE); Leukocyte Esterase Urine UA NEGATIVE (NEGATIVE); Nitrite Urine UA NEGATIVE (Negative); Occult Blood Urine UA TRACE-INTACT (Negative); Protein Urine UA NEGATIVE (Negative); Specific Gravity Urine UA 1.015 (1.000-1.035); pH Urine UA 7.5 (4.5-8.0)
[2024-02-25 17:31] LABS: Bacteria Urine None Seen; Culture Indicated Urine Cult Not Indicated; RBC Urine 1-5/HPF (0-5/HPF); Squamous Epithelial Cell Urine None Seen (0-5/HPF); Urine Volume 10mL (spun); WBC Urine 0-1/HPF (0-5/HPF)
--- NOTE | 2024-02-25 18:52 | ED.SYNCOPE ---
HPI - Syncope General Chief Complaint: Syncope Stated Complaint: Syncope Time Seen by Provider: 02/25/24 16:01 Source: patient, EMS, RN notes reviewed and old records reviewed Mode of arrival: EMS Limitations: altered mental status History of Present Illness HPI narrative: 88-year-old male history of Parkinson's/dementia, atrial fibrillation with prior quadruple bypass. Patient was able to tell me that he had a or loss of consciousness, denies any symptoms currently. States he feels much better at this time. Denies any headache, denies any chest pain or shortness of breath, denies any nausea or vomiting, denies any other GI or urinary symptoms. was present here earlier but was not present during bowel. Report was patient had either ground level fall or syncopal episode was found between the toilet and the wall. Patient does have a history of Parkinson's, has not had any of his medications today. Related Data Home Medications Medication Instructions Recorded Confirmed cholecalciferol (vitamin D3) 25 1,000 unit PO DAILY 11/24/17 11/27/23 mcg (1,000 unit) capsule coenzyme Q10 100 mg capsule (Co 100 mg PO DAILY 01/17/20 11/27/23 Q-10) krill oil 500 mg capsule mg PO 01/17/20 11/27/23 donepezil 10 mg tablet 10 mg PO DAILY 02/13/22 11/27/23 carbidopa 25 mg-levodopa 100 mg 1 tab PO TID 09/19/22 11/27/23 tablet memantine 10 mg tablet 10 mg PO BID 09/19/22 11/27/23 metoprolol succinate 25 mg 12.5 mg PO DAILY 11/27/23 tablet,extended release 24 hr Previous Rx's Medication Instructions Recorded rosuvastatin 20 mg tablet 20 mg PO DAILY #90 tabs 04/07/23 tamsulosin 0.4 mg capsule See Rx Instructions .Route 05/06/23 .COMPLEX #180 caps esomeprazole magnesium 20 mg 20 mg PO DAILY #90 caps 10/21/23 capsule,delayed release levothyroxine 112 mcg tablet See Rx Instructions .Route 11/25/23 .COMPLEX #90 tabs lidocaine 4 % topical patch 1 patch topical DAILY PRN back 11/27/23 pain #10 ea apixaban 5 mg tablet (Eliquis) 5 mg PO BID #180 tabs 12/30/23 furosemide 20 mg tablet (Lasix) 20 mg PO DAILY #3 tabs 02/25/24 Allergies Allergy/AdvReac Type Severity Reaction Status Date / Time No Known Drug Allergies Allergy Verified 11/27/23 14:13 Review of Systems Review of Systems ROS Unobtainable: All systems reviewed & are unremarkable except as noted in HPI and below Patient History Medical History History of heart attack Bradycardia Dementia Bilateral renal masses Atrial fibrillation BPH w urinary obs/LUTS Bilateral renal cysts Vision disorder Hearing deficit Chronic back pain (~2005) CAD (coronary artery disease) Surgical History Hx of CABG Anesthesia History of spinal surgery (~2007) History of knee replacement, total (~2005) History of coronary artery bypass, five (~2010) Family History Father Hypertension Heart disease Social History marital status: Smoking Status: Never smoker alcohol intake: current (1 drink per day (wine) ) substance use type: does not use Smoking Status: Never smoker alcohol intake frequency: 0-2 drinks per day Alcohol type: wine Substance Use Type: does not use Exam Narrative Exam Narrative: GEN: well nourished, thin, elderly male, alert and oriented x 3, patient appears to be in mild distress. HEENT: Atraumatic, pupils are equal round reactive to light, extraocular movements are intact, nares are clear, TMs are clear with no fluid, no hemotympanum, there is no conjunctival pallor. Throat is clear without any exudates, erythema, tonsillar enlargement or uvular deviation, no facial droop. No cervical tenderness. HEART: Regular rate and rhythm without murmur, clicks, rubs. No carotid bruits, pulses are equal in upper and lower extremities LUNGS:Lungs clear to auscultation, no wheezes, rales, crackles, chest moves symmetrically ABD:bowel sounds normal, soft, non-tender, no guarding, rebound, rigidity, no masses noted, no hepatosplenomegaly :No CVA tenderness MSCL: Non-tender, no muscle atrophy, muscles strength 5/5 upper and lower extremities, full range of motion. NEURO:CN 2-12 intact, sensation normal Initial Vital Signs Initial Vital Signs: Vital Signs Pulse Rate 95 H 02/25/24 14:08 Respiratory Rate 23 02/25/24 14:08 Blood Pressure 126/77 02/25/24 14:08 Pulse Oximetry 98 02/25/24 14:08 Course Orders Ordered: Discontinued Medications Furosemide (Furosemide 20 Mg Tablet) 20 mg PO NOW ONE Stop: 02/25/24 19:28 Last Admin: 02/25/24 19:48 Dose: 20 mg Documented By: AB Vital Signs Vital signs: Vital Signs - 8 hr 02/25/24 14:08 02/25/24 14:08 02/25/24 14:26 Temperature 98.9 F Pulse Rate 95 H 89 Respiratory Rate 23 18 Blood Pressure 126/77 126/77 Pulse Oximetry 98 100 Oxygen Delivery Method Room Air 02/25/24 14:30 02/25/24 14:31 02/25/24 14:31 Temperature Pulse Rate 125 H 113 H Respiratory Rate 25 H 30 H Blood Pressure 118/88 Pulse Oximetry 99 99 Oxygen Delivery Method 02/25/24 15:00 02/25/24 15:00 02/25/24 15:30 Temperature Pulse Rate 93 H 83 Respiratory Rate 23 20 Blood Pressure 117/78 Pulse Oximetry 97 96 Oxygen Delivery Method 02/25/24 15:30 02/25/24 16:00 02/25/24 16:00 Temperature Pulse Rate 88 Respiratory Rate 20 Blood Pressure 127/81 133/62 Pulse Oximetry 96 Oxygen Delivery Method 02/25/24 16:30 02/25/24 16:30 02/25/24 17:00 Temperature Pulse Rate 85 84 Respiratory Rate 10 L 24 Blood Pressure 129/74 Pulse Oximetry 96 97 Oxygen Delivery Method 02/25/24 17:00 02/25/24 17:30 02/25/24 17:30 Temperature Pulse Rate 85 Respiratory Rate 24 Blood Pressure 138/89 137/68 Pulse Oximetry 97 Oxygen Delivery Method 02/25/24 18:00 02/25/24 18:00 02/25/24 18:30 Temperature Pulse Rate 77 82 Respiratory Rate 24 21 Blood Pressure 100/57 L Pulse Oximetry 96 96 Oxygen Delivery Method 02/25/24 18:30 Temperature Pulse Rate Respiratory Rate Blood Pressure 112/59 L Pulse Oximetry Oxygen Delivery Method [facility] Syncope Lab Data 02/25/24 14:00 02/25/24 14:00 Labs: Lab Results 02/25/24 02/25/24 Range/Units 14:00 14:20 WBC 8.1 (4.5-11.0) X10^3/uL RBC 4.17 L (4.5-5.9) X10^6/uL Hgb 13.8 (13.5-17.5) g/dL Hct 40.4 L (41-53) % MCV 96.7 (80-100) fL MCH 33.2 (26-34) PG MCHC 34.3 (30-36) % RDW 13.5 (11.6-14.8) % Plt Count 218 (150-400) X10^3/uL Neut % (Auto) 73.1 (50-75) % Lymph % (Auto) 21.1 L (25-40) % [place] % (Auto) 5.3 (3-14) % Eos % (Auto) 0.2 L (2-4) % Baso % (Auto) 0.3 (0-2) % Neut # (Auto) 5900 (1563-6892) /uL Lymph # (Auto) 1700 (4240-0225) /uL [place] # (Auto) 400 (0-900) /uL Eos # (Auto) 0 (0-450) /uL Baso # (Auto) 0 (0-100) /uL PT 15.5 H (9.4-12.5) SECONDS INR 1.3 (0.9-1.3) APTT 34 (25.1-36.5) SECONDS Sodium 136 L (137-145) mmol/L Potassium 3.6 (3.4-5.1) mmol/L Chloride 103 (98-107) mmol/L Carbon Dioxide 19 L (22-32) mmol/L BUN 12 (9-20) mg/dL Creatinine 1.02 (0.66-1.25) mg/dL Estimated GFR > 60 (>60) mL/min BUN/Creatinine Ratio 11.8 (6-22) Glucose 150 H (80-110) mg/dL Calcium 8.9 (8.4-10.2) mg/dL Magnesium 1.7 (1.6-2.3) mg/dL Total Bilirubin 1.2 (0.2-1.3) mg/dL AST 28 (17-59) IU/L ALT 32 (<50) IU/L Alkaline Phosphatase 82 (38-126) U/L Total Creatine Kinase 49 L (55-170) U/L Troponin I < 0.012 (0.01-0.034) ng/mL NT-Pro-B Natriuret Pep 4170 H (<450) pg/mL Total Protein 6.4 (6.3-8.2) g/dL Albumin 4.0 (3.5-5.0) g/dL Globulin 2.4 (1.7-4.1) g/dL Albumin/Globulin Ratio 1.7 (1.0-2.8) Lipase 99 (23-300) U/L Urine Color Yellow Urine Appearance Clear Urine pH 7.5 (4.5-8.0) Ur Specific [place] 1.015 (1.000-1.035) Urine Protein Negative (Negative) Urine Glucose (UA) Negative (Negative) g/dL Urine Ketones Negative (NEGATIVE) Urine Occult Blood Trace-intact (Negative) Urine Nitrate Negative (Negative) Urine Bilirubin Negative (NEGATIVE) Urine Urobilinogen 1.0 (0.2) E.U./dL Ur Leukocyte Esterase Negative (NEGATIVE) Urine RBC 1-5/hpf (0-5/HPF) Urine WBC 0-1/hpf (0-5/HPF) Ur Squamous Epith Cells None seen (0-5/HPF) Urine Bacteria None seen (None) Ur Culture Indicated? Cult not indicated Vol Urine Centrifuged 10ml (spun) Imaging Data Chest x-ray: Radiologist's Impression: Close Chest X-Ray (Signed) Elvis Wyatt - 02/25/24 Chest X-Ray (Signed) Demond Erickson - 07/13/[address] (Signed) Bar Trevizo - 07/29/21 Renal Ultrasound (Signed) Tonny Boyle - 07/16/21 Humerus X-Ray (Signed) Pietro Gusman - 01/04/21 Renal Ultrasound (Signed) Pietro Gusman - 06/26/20 Extremity Ultrasound (Signed) Pietro Gusman - 06/18/20 Shoulder MRI (Signed) Spike Adair - 05/10/20 Shoulder X-Ray (Signed) Aly Montoya - 04/10/20 Humerus X-Ray (Signed) Aly Montoya - 04/10/20 Clavicle X-Ray (Signed) Aly Montoya - 04/10/20 Chest X-Ray (Signed) Pietro Gusman - 02/15/20 Renal Ultrasound (Signed) Aly Montoya - 06/13/19 Renal Ultrasound (Signed) VacaZoranJean-Paul - 06/03/18 Ribs X-Ray (Signed) Donita Nicolesammie - 02/09/18 Launch?Image [address] [address] XRay Report Signed Patient: Thomas Ann MR#: [id number] : 1935 Acct:[id number] Age/Sex: 88 / M Date of Service: 02/25/24 Loc: ED Accession Number: [id number] Procedure: XR chest 1V Ordering Provider: Shavon Sheth MD PROCEDURE: XR CHEST 1V INDICATIONS: chest pain TECHNIQUE: One view of the chest was acquired. COMPARISON: [facility], CR, XR CHEST 1V, 07/13/2022, 14:51. [facility], CR, XR CHEST 1V, 02/15/2020, 15:35. FINDINGS: Surgical changes and devices: Post median sternotomy and CABG. Lungs and pleura: Lungs are clear. No pleural effusions or pneumothorax. Mediastinum: Mediastinal contours appear normal. Heart size is normal. Bones and chest wall: No suspicious bony lesions. Overlying soft tissues appear unremarkable. IMPRESSION: No acute cardiopulmonary abnormality is seen. Dictated by: Elvis Wyatt M.D. on 02/25/2024 at 16:22 Approved by: Elvis Wyatt M.D. on 02/25/2024 at 16:23 ECG Data Attestation: I personally reviewed and interpreted this ECG as follows: Prior ECG tracings: available for review Interpretation: EKG shows AFib rate of 96, QRS of 98 QTC of 439, no acute ST elevation appreciated. Patient has prior from 07/13/2022 which shows AFib no acute ST changes appreciated. MDM Narrative Medical decision making narrative: Labs show white count 8.1, hemoglobin of 13.8 platelets of 218, INR is 1.3. Sodium is 136 potassium 3.6 chloride 103 CO2 is 19 BUN 12 with a creatinine 1.02 glucose is 150 LFTs are negative troponins less than 0.012 with a BNP of 41 70, lipase is 99. Urinalysis shows trace blood negative for nitrates negative for leukocyte esterase 1-5 RBCs 1 white cell, no squamous no bacteria. Chest x-ray shows no acute change. EKG shows AFib rate controlled. Patient had one low blood pressure but overall has been appropriate, atrial fibrillation but rate controlled. Patient is alert, appropriate. No significant changes on telemetry here in the department. Patient ambulated with a walker without issue. was contacted she feels comfortable with patient returning by cab as she can not drive at nighttime. Patient does have his POLST form at bedside which notes DNR/DNI Discharge Plan Departure Patient Disposition: Home Clinical Impression: Syncope Instructions: DI for Syncope in Adults (Fainting) Activity Restrictions/Additional Instructions: Please follow up with your physician for recheck. Your labs did show an elevated BNP, you have been sent prescription for a short course of Lasix more water pill. I would recommend taking this in the morning. Prescription was sent to [facility] in [place]. Please return for recurrent symptoms, recurrent lightheadedness or passing out, severe headaches, altered mental status, chest pain, shortness of breath, persistent vomiting, new numbness tingling or weakness or other new or concerning changes. Prescriptions: New furosemide [Lasix] 20 mg tablet 20 mg PO DAILY Qty: 3 0RF No Action donepezil 10 mg tablet 10 mg PO DAILY coenzyme Q10 [Co Q-10] 100 mg capsule 100 mg PO DAILY krill oil 500 mg capsule PO tamsulosin 0.4 mg capsule See Rx Instructions .ROUTE .COMPLEX Qty: 180 1RF Dose Instruction: TAKE 2 CAPSULES BY MOUTH EVERY NIGHT AT BEDTIME Rx Instructions: TAKE 2 CAPSULES BY MOUTH EVERY NIGHT AT BEDTIME esomeprazole magnesium 20 mg capsule,delayed release(DR/EC) 20 mg PO DAILY Qty: 90 1RF levothyroxine 112 mcg tablet See Rx Instructions .ROUTE .COMPLEX Qty: 90 3RF Dose Instruction: TAKE 1 TABLET BY MOUTH DAILY Rx Instructions: TAKE 1 TABLET BY MOUTH DAILY Eliquis 5 mg tablet 5 mg PO BID Qty: 180 0RF cholecalciferol (vitamin D3) 1,000 unit capsule 1,000 unit PO DAILY rosuvastatin 20 mg tablet 20 mg PO DAILY Qty: 90 1RF metoprolol succinate 25 mg tablet extended release 24 hr 12.5 mg PO DAILY lidocaine 4 % adhesive patch,medicated 1 patch topical DAILY PRN (Reason: back pain) Qty: 10 11RF memantine 10 mg tablet 10 mg PO BID carbidopa-levodopa 25-100 mg tablet 1 tab PO TID Referrals: Vidhya Quarles DO [Primary Care Provider] - Stand Alone Forms: Patient Portal/API
[2024-02-25] MEDS: FUROSEMIDE 20 MG TABLET PO (19:48)
--- NOTE | 2024-02-25 20:25 | PC.NURSE ---
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 Called and notified her patient is on the way so she can wait in driveway for taxi as she requested ph # [phone]
== END 2024-02-25 19:59 | disposition home or self-care (01) ==
PROVIDERS: Emergency Medicine; Emergency Provider Emergency Medicine; Family Provider Family Medicine; PCP Family Medicine
DX: R55 Syncope and collapse (principal); R07.9 Chest pain, unspecified; I48.91 Unspecified atrial fibrillation; G20.A1 Parkinson's disease without dyskinesia, without mention of fluctuations; F02.80 Dementia in other diseases classified elsewhere, unspecified severity, without behavioral disturbance, psychotic disturbance, mood disturbance, and anxiety; Z79.01 Long term (current) use of anticoagulants
CPT/HCPCS: 71045; 80053; 81001; 82550; 83690; 83735; 83880; 84484; 85025; 85610; 85730; 93005; 99283; 99284

== ENCOUNTER 2024-03-29 10:02 | Emergency (ER) | payer BC, SELFPAY ==
[2024-03-29] VITALS (21 sets, daily range): BP systolic 84–125; BP diastolic 55–100; PULSE 80–145; RESP 13–21; TEMP 36.2; O2SAT 94–100
--- NOTE | 2024-03-29 10:19 | DI.RAD.S_ITS ---
PROCEDURE: XR CHEST 1V INDICATIONS: chest pain TECHNIQUE: One view of the chest was acquired. COMPARISON: [facility], CR, XR CHEST 1V, 02/25/2024, 14:30. [facility], CR, XR CHEST 1V, 07/13/2022, 14:51. FINDINGS: Surgical changes and devices: Sternotomy. Lungs and pleura: Lungs are clear. No pleural effusions or pneumothorax. Mediastinum: Mediastinal contours appear normal. Heart size is normal. Bones and chest wall: No suspicious bony lesions. Overlying soft tissues appear unremarkable. IMPRESSION: No acute cardiopulmonary abnormality is seen. Dictated by: Rhett Fox M.D. on 03/29/2024 at 10:52 Approved by: Rhett Fox M.D. on 03/29/2024 at 10:53
[2024-03-29 10:26] LABS: INR 1.5 (0.9-1.3); Prothrombin Time 17.1 SECONDS (9.4-12.5)
--- NOTE | 2024-03-29 10:26 | EKG_ITS ---
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
--- NOTE | 2024-03-29 10:28 | DI.CT.S_ITS ---
PROCEDURE: CT CERVICAL SPINE WO CON INDICATIONS: unwitnessed syncope, eliquis TECHNIQUE: Noncontrast 3 mm thick sections acquired from the skull base to the T4 level. Sagittal and coronal reformats were then constructed. For radiation dose reduction, the following was used: automated exposure control, adjustment of mA and/or kV according to patient size. COMPARISON: None. FINDINGS: Image quality: Excellent. Bones: No fractures or dislocations. Straightening of the normal cervical lordosis. Multilevel degenerative changes, severe at C5-C6 and C6-C7. Visualized superior ribs are intact. Soft tissues: Prevertebral soft tissues are normal in thickness. No paravertebral hematomas. No apical pneumothoraces. IMPRESSION: No displaced fracture or traumatic subluxation. Dictated by: Ander Rao M.D. on 03/29/2024 at 11:01 Approved by: Ander Rao M.D. on 03/29/2024 at 11:03
--- NOTE | 2024-03-29 10:28 | DI.CT.S_ITS ---
PROCEDURE: CT HEAD/BRAIN WO CON INDICATIONS: unwitnessed syncope, eliquis TECHNIQUE: Noncontrast 4.5 mm thick angled axial sections acquired from the foramen magnum to the vertex, with coronal and sagittal reformats. For radiation dose reduction, the following was used: automated exposure control, adjustment of mA and/or kV according to patient size. COMPARISON: None. FINDINGS: Image quality: Diagnostic. CSF spaces: Basal cisterns are patent. No extra-axial fluid collections. The ventricles are symmetric in size and shape. Brain: No intracranial bleeds or masses. There is cerebral volume loss for age, with resultant ventricular and sulcal prominence. There are periventricular and deep white matter chronic small vessel ischemic changes. There is intracranial internal carotid artery atherosclerosis. Skull and face: Calvarium and visualized facial bones appear intact, without suspicious lesions. Lens replacements. Sinuses: Visualized sinuses and mastoids are clear. IMPRESSION: No acute intracranial pathology. Dictated by: Ander Rao M.D. on 03/29/2024 at 10:59 Approved by: Ander Rao M.D. on 03/29/2024 at 11:01
[2024-03-29 10:29] LABS: Add Manual Diff / Slide Review NO; Basophils Absolute Auto 100 /uL (0-100); Basophils Percent Auto 1.2 % (0-2); Eosinophils Absolute Auto 100 /uL (0-450); Eosinophils Percent Auto 1.5 % (2-4); Hematocrit 42.3 % (41-53); Hemoglobin 14.4 g/dL (13.5-17.5); Lymphocytes Absolute Auto 3000 /uL (1100-4500); Lymphocytes Percent Auto 39.7 % (25-40); Mean Corpuscular HGB Conc 34.1 % (30-36); Mean Corpuscular Hemoglobin 32.6 PG (26-34); Mean Corpuscular Volume 95.7 fL (80-100); Monocytes Absolute Auto 500 /uL (0-900); Neutrophils Absolute Auto 3800 /uL (1500-7000); Neutrophils Percent Auto 50.6 % (50-75); PTT Partial Thromboplastin Tim 38 SECONDS (25.1-36.5); Platelet Count 292 X10^3/uL (150-400); Red Blood Cell Count 4.42 X10^6/uL (4.5-5.9); Red Cell Distribution Width 13.7 % (11.6-14.8); White Blood Cell Count 7.5 X10^3/uL (4.5-11.0)
[2024-03-29 10:30] LABS: Alanine Aminotransferase 19 IU/L (<50); Albumin 3.9 g/dL (3.5-5.0); Albumin Globulin Ratio 1.3 (1.0-2.8); Alkaline Phosphatase 107 U/L (38-126); Aspartate Aminotransferase 41 IU/L (17-59); BUN Creatinine Ratio 19.6 (6-22); Bilirubin Total 0.8 mg/dL (0.2-1.3); Blood Urea Nitrogen 22 mg/dL (9-20); Calcium 9.4 mg/dL (8.4-10.2); Carbon Dioxide 25 mmol/L (22-32); Chloride 105 mmol/L (98-107); Creatine Kinase 68 U/L (55-170); Estimated Glomerular Filt Rate > 60 mL/min (>60); Globulin 2.9 g/dL (1.7-4.1); Glucose 124 mg/dL (80-110); HEMOLYSIS < 15 (0-50); Lipase 99 U/L (23-300); Magnesium 1.7 mg/dL (1.6-2.3); Potassium 3.9 mmol/L (3.4-5.1); Sodium 139 mmol/L (137-145); Total Protein 6.8 g/dL (6.3-8.2)
[2024-03-29 10:41] LABS: NT-proBNP (BNP-Adult 18+) 3270 pg/mL (<450)
--- NOTE | 2024-03-29 15:10 | ED_ITS ---
HPI - Syncope General Chief Complaint: Syncope Stated Complaint: Syncope Time Seen by Provider: 03/29/24 15:05 Source: patient Mode of arrival: Ambulatory Limitations: no limitations History of Present Illness HPI narrative: 89-year-old male history of Parkinson's/dementia, atrial fibrillation on Eliquis with prior quadruple bypass presents for complaint of syncope or loss of consciousness while going to the bathroom patient states he does not recall much of what happened. Per EMS patient had a syncopal episode while having a bowel movement. Patient states no complaints currently. He denies headache, no neck pain, no chest pain or shortness of breath. Denies any numbness tingling or weakness. Denies any nausea or vomiting. No issues with bowel movements or urination. Denies any incontinence. Patient indicates he does take medicine for Parkinson's. Denies any allergies to medications. He does not recall all of his medical history. No tobacco, no regular alcohol, no recreational drugs. Related Data Home Medications Medication Instructions Recorded Confirmed cholecalciferol (vitamin D3) 25 1,000 unit PO DAILY 11/24/17 03/04/24 mcg (1,000 unit) capsule coenzyme Q10 100 mg capsule (Co 100 mg PO DAILY 01/17/20 03/04/24 Q-10) krill oil 500 mg capsule mg PO 01/17/20 03/04/24 donepezil 10 mg tablet 10 mg PO DAILY 02/13/22 03/04/24 carbidopa 25 mg-levodopa 100 mg 1 tab PO TID 09/19/22 03/04/24 tablet memantine 10 mg tablet 10 mg PO BID 09/19/22 03/04/24 metoprolol succinate 25 mg 12.5 mg PO DAILY 11/27/23 03/04/24 tablet,extended release 24 hr Previous Rx's Medication Instructions Recorded rosuvastatin 20 mg tablet 20 mg PO DAILY #90 tabs 04/07/23 tamsulosin 0.4 mg capsule See Rx Instructions .Route 05/06/23 .COMPLEX #180 caps esomeprazole magnesium 20 mg 20 mg PO DAILY #90 caps 10/21/23 capsule,delayed release levothyroxine 112 mcg tablet See Rx Instructions .Route 11/25/23 .COMPLEX #90 tabs lidocaine 4 % topical patch 1 patch topical DAILY PRN back 11/27/23 pain #10 ea apixaban 5 mg tablet (Eliquis) 5 mg PO BID #180 tabs 12/30/23 sulfamethoxazole 800 1 tab PO BID #10 tabs 03/17/24 mg-trimethoprim 160 mg tablet (Bactrim DS) Allergies Allergy/AdvReac Type Severity Reaction Status Date / Time No Known Drug Allergies Allergy Verified 03/04/24 10:05 Review of Systems Review of Systems ROS Unobtainable: All systems reviewed & are unremarkable except as noted in HPI and below Patient History Medical History Syncope History of heart attack Bradycardia Dementia Bilateral renal masses Atrial fibrillation BPH w urinary obs/LUTS Bilateral renal cysts Vision disorder Hearing deficit Chronic back pain (~2005) CAD (coronary artery disease) Surgical History Hx of CABG Anesthesia History of spinal surgery (~2007) History of knee replacement, total (~2005) History of coronary artery bypass, five (~2010) Family History Father Hypertension Heart disease Social History marital status: Smoking Status: Never smoker alcohol intake: current (1 drink per day (wine) ) substance use type: does not use Smoking Status: Never smoker alcohol intake frequency: 0-2 drinks per day Alcohol type: wine Substance Use Type: does not use Exam Narrative Exam Narrative: GEN: Elderly appearing male, alert and oriented to self, location and month. He is unsure of the day of the week., patient appears to be in mild distress. HEENT: Atraumatic, pupils are equal round reactive to light, extraocular movements are intact, nares are clear, TMs are clear with no fluid, there is no conjunctival pallor. Throat is clear without any exudates, erythema, tonsillar enlargement or uvular deviation HEART: Irregularly irregular rate and rhythm without murmur, clicks, rubs. No carotid bruits, pulses are equal in upper and lower extremities LUNGS:Lungs clear to auscultation, no wheezes, rales, crackles, chest moves symmetrically ABD:bowel sounds normal, soft, non-tender, no guarding, rebound, rigidity, no masses noted, no hepatosplenomegaly, no pulsatile bruit. MSCL: Non-tender, no muscle atrophy, muscles strength 5/5 upper and lower extremities, full range of motion. NEURO:CN 2-12 intact, sensation normal. Initial Vital Signs Initial Vital Signs: Vital Signs Pulse Rate 101 H 03/29/24 10:10 Pulse Oximetry 98 03/29/24 10:10 Course Orders Ordered: Discontinued Medications Carbidopa/Levodopa (Carbidopa-Levodopa 25/100 Tablet) 1 each PO NOW ONE Stop: 03/29/24 15:04 Last Admin: 03/29/24 15:35 Dose: 1 each Documented By: PRESTON Vital Signs Vital signs: Vital Signs - 8 hr 03/29/24 12:00 03/29/24 12:00 03/29/24 12:30 Pulse Rate 95 H Pulse Rate [Orthostatic Lying] Pulse Rate [Orthostatic Sitting] Pulse Rate [Orthostatic Standing] Respiratory Rate 16 Blood Pressure 101/64 84/57 L Blood Pressure [Orthostatic Lying] Blood Pressure [Orthostatic Sitting] Blood Pressure [Orthostatic Standing] Pulse Oximetry 98 03/29/24 12:30 03/29/24 12:36 03/29/24 12:36 Pulse Rate 97 H 105 H Pulse Rate [Orthostatic Lying] Pulse Rate [Orthostatic Sitting] Pulse Rate [Orthostatic Standing] Respiratory Rate 17 17 Blood Pressure 94/72 Blood Pressure [Orthostatic Lying] Blood Pressure [Orthostatic Sitting] Blood Pressure [Orthostatic Standing] Pulse Oximetry 97 97 03/29/24 13:00 03/29/24 13:00 03/29/24 13:30 Pulse Rate 95 H 94 H Pulse Rate [Orthostatic Lying] Pulse Rate [Orthostatic Sitting] Pulse Rate [Orthostatic Standing] Respiratory Rate 17 17 Blood Pressure 118/76 Blood Pressure [Orthostatic Lying] Blood Pressure [Orthostatic Sitting] Blood Pressure [Orthostatic Standing] Pulse Oximetry 97 97 03/29/24 13:30 03/29/24 14:00 03/29/24 14:00 Pulse Rate 94 H Pulse Rate [Orthostatic Lying] Pulse Rate [Orthostatic Sitting] Pulse Rate [Orthostatic Standing] Respiratory Rate 17 Blood Pressure 109/64 122/76 Blood Pressure [Orthostatic Lying] Blood Pressure [Orthostatic Sitting] Blood Pressure [Orthostatic Standing] Pulse Oximetry 98 03/29/24 14:30 03/29/24 14:30 03/29/24 15:00 Pulse Rate 98 H Pulse Rate [Orthostatic Lying] Pulse Rate [Orthostatic Sitting] Pulse Rate [Orthostatic Standing] Respiratory Rate 16 Blood Pressure 115/59 L 118/57 L Blood Pressure [Orthostatic Lying] Blood Pressure [Orthostatic Sitting] Blood Pressure [Orthostatic Standing] Pulse Oximetry 98 03/29/24 15:00 03/29/24 15:03 03/29/24 15:03 Pulse Rate 102 H 109 H Pulse Rate [Orthostatic Lying] Pulse Rate [Orthostatic Sitting] Pulse Rate [Orthostatic Standing] Respiratory Rate 19 14 Blood Pressure 109/60 Blood Pressure [Orthostatic Lying] Blood Pressure [Orthostatic Sitting] Blood Pressure [Orthostatic Standing] Pulse Oximetry 96 97 03/29/24 15:04 03/29/24 15:04 03/29/24 15:06 Pulse Rate 116 H Pulse Rate [Orthostatic Lying] Pulse Rate [Orthostatic Sitting] Pulse Rate [Orthostatic Standing] Respiratory Rate 21 Blood Pressure 113/70 99/55 L Blood Pressure [Orthostatic Lying] Blood Pressure [Orthostatic Sitting] Blood Pressure [Orthostatic Standing] Pulse Oximetry 96 03/29/24 15:06 03/29/24 15:09 03/29/24 15:31 Pulse Rate 145 H 106 H Pulse Rate [Orthostatic Lying] 110 H Pulse Rate [Orthostatic Sitting] 120 H Pulse Rate [Orthostatic Standing] 130 H Respiratory Rate Blood Pressure Blood Pressure [Orthostatic Lying] 109/60 Blood Pressure [Orthostatic Sitting] 113/70 Blood Pressure [Orthostatic Standing] 99/55 L Pulse Oximetry 94 03/29/24 15:33 03/29/24 15:33 Pulse Rate 115 H Pulse Rate [Orthostatic Lying] Pulse Rate [Orthostatic Sitting] Pulse Rate [Orthostatic Standing] Respiratory Rate 17 Blood Pressure 105/76 Blood Pressure [Orthostatic Lying] Blood Pressure [Orthostatic Sitting] Blood Pressure [Orthostatic Standing] Pulse Oximetry 96 MDM - Syncope Lab Data 03/29/24 09:50 03/29/24 09:50 Labs: Lab Results 03/29/24 Range/Units 09:50 WBC 7.5 (4.5-11.0) X10^3/uL RBC 4.42 L (4.5-5.9) X10^6/uL Hgb 14.4 (13.5-17.5) g/dL Hct 42.3 (41-53) % MCV 95.7 (80-100) fL MCH 32.6 (26-34) PG MCHC 34.1 (30-36) % RDW 13.7 (11.6-14.8) % Plt Count 292 (150-400) X10^3/uL Neut % (Auto) 50.6 (50-75) % Lymph % (Auto) 39.7 (25-40) % [place] % (Auto) 7.0 (3-14) % Eos % (Auto) 1.5 L (2-4) % Baso % (Auto) 1.2 (0-2) % Neut # (Auto) 3800 (4169-6720) /uL Lymph # (Auto) 3000 (0491-8469) /uL [place] # (Auto) 500 (0-900) /uL Eos # (Auto) 100 (0-450) /uL Baso # (Auto) 100 (0-100) /uL PT 17.1 H (9.4-12.5) SECONDS INR 1.5 H (0.9-1.3) APTT 38 H (25.1-36.5) SECONDS Sodium 139 (137-145) mmol/L Potassium 3.9 (3.4-5.1) mmol/L Chloride 105 (98-107) mmol/L Carbon Dioxide 25 (22-32) mmol/L BUN 22 H (9-20) mg/dL Creatinine 1.12 (0.66-1.25) mg/dL Estimated GFR > 60 (>60) mL/min BUN/Creatinine Ratio 19.6 (6-22) Glucose 124 H (80-110) mg/dL Calcium 9.4 (8.4-10.2) mg/dL Magnesium 1.7 (1.6-2.3) mg/dL Total Bilirubin 0.8 (0.2-1.3) mg/dL AST 41 (17-59) IU/L ALT 19 (<50) IU/L Alkaline Phosphatase 107 (38-126) U/L Total Creatine Kinase 68 (55-170) U/L Troponin I 0.020 (0.01-0.034) ng/mL NT-Pro-B Natriuret Pep 3270 H (<450) pg/mL Total Protein 6.8 (6.3-8.2) g/dL Albumin 3.9 (3.5-5.0) g/dL Globulin 2.9 (1.7-4.1) g/dL Albumin/Globulin Ratio 1.3 (1.0-2.8) Lipase 99 (23-300) U/L Imaging Data CT scan - head: Radiologist's Impression: Close Head CT (Signed) Ander Rao - 03/29/[address] (Signed) Ander Rao - 03/29/24 Chest X-Ray (Signed) Rhett Fox - 03/29/24 Renal Ultrasound (Signed) Edwin Galeas - 03/16/24 Chest X-Ray (Signed) Elvis Wyatt - 02/25/24 Chest X-Ray (Signed) Demond Erickson - 07/13/[address] (Signed) Bar Trevizo - 07/29/21 Renal Ultrasound (Signed) Tonny Boyle - 07/16/21 Humerus X-Ray (Signed) Pietro Gusman - 01/04/21 Renal Ultrasound (Signed) Pietro Gusman - 06/26/20 Extremity Ultrasound (Signed) Pietro Gusman - 06/18/20 Shoulder MRI (Signed) Spike Adair - 05/10/20 Shoulder X-Ray (Signed) Aly Montoya - 04/10/20 Humerus X-Ray (Signed) Aly Montoya - 04/10/20 Clavicle X-Ray (Signed) Aly Montoya - 04/10/20 Chest X-Ray (Signed) Pietro Gusman - 02/15/20 Renal Ultrasound (Signed) Aly Montoya - 06/13/19 Renal Ultrasound (Signed) Jean-Paul Vaca - 06/03/18 Ribs X-Ray (Signed) Janay Nicole - 02/09/[address] [address] [address] Scan Report Signed Patient: Thomas Ann MR#: [id number] : 1935 Acct:[id number] Age/Sex: 89 / M Date of Service: 03/29/24 Loc: ED Accession Number: [id number] Procedure: CT head/brain wo con Ordering Provider: Crystal Bennett D.O. PROCEDURE: CT HEAD/BRAIN WO CON INDICATIONS: unwitnessed syncope, eliquis TECHNIQUE: Noncontrast 4.5 mm thick angled axial sections acquired from the foramen magnum to the vertex, with coronal and sagittal reformats. For radiation dose reduction, the following was used: automated exposure control, adjustment of mA and/or kV according to patient size. COMPARISON: None. FINDINGS: Image quality: Diagnostic. CSF spaces: Basal cisterns are patent. No extra-axial fluid collections. The ventricles are symmetric in size and shape. Brain: No intracranial bleeds or masses. There is cerebral volume loss for age, with resultant ventricular and sulcal prominence. There are periventricular and deep white matter chronic small vessel ischemic changes. There is intracranial internal carotid artery atherosclerosis. Skull and face: Calvarium and visualized facial bones appear intact, without suspicious lesions. Lens replacements. Sinuses: Visualized sinuses and mastoids are clear. IMPRESSION: No acute intracranial pathology. Dictated by: Ander Rao M.D. on 03/29/2024 at 10:59 Approved by: Ander Rao M.D. on 03/29/2024 at 11:01 CT - cervical spine: Radiologist's Impression: Thomas Ann?(Tad)??89??M??1935 ? Allergy/Adv: No Known Drug Allergies (More??) Close Head CT (Signed) Ander Roa - 03/29/[address] (Signed) Ander Rao - 03/29/24 Chest X-Ray (Signed) Rhett Fox - 03/29/24 Renal Ultrasound (Signed) Edwin Galeas - 03/16/24 Chest X-Ray (Signed) Elvis Wyatt - 02/25/24 Chest X-Ray (Signed) Demond Erickson - 07/13/[address] (Signed) aBr Trevizo - 07/29/21 Renal Ultrasound (Signed) Tonny Boyle - 07/16/21 Humerus X-Ray (Signed) Pietro Gusman - 01/04/21 Renal Ultrasound (Signed) Pietro Gusman - 06/26/20 Extremity Ultrasound (Signed) Pietro Gusman - 06/18/20 Shoulder MRI (Signed) Spike Adair - 05/10/20 Shoulder X-Ray (Signed) Aly Montoya - 04/10/20 Humerus X-Ray (Signed) Aly Montoya - 04/10/20 Clavicle X-Ray (Signed) Aly Montoya - 04/10/20 Chest X-Ray (Signed) Barbara Gusmane - 02/15/20 Renal Ultrasound (Signed) Aly Montoya - 06/13/19 Renal Ultrasound (Signed) Jean-Paul Vaca - 06/03/18 Ribs X-Ray (Signed) BonnieDonita pappassammie - 02/09/18 [address] [address] CT Scan Report Signed Patient: Thomas Ann MR#: [id number] : 1935 Acct:[id number] Age/Sex: 89 / M Date of Service: 03/29/24 Loc: ED Accession Number: [id number] Procedure: CT cervical spine wo con Ordering Provider: Crystal Bennett D.O. PROCEDURE: CT CERVICAL SPINE WO CON INDICATIONS: unwitnessed syncope, eliquis TECHNIQUE: Noncontrast 3 mm thick sections acquired from the skull base to the T4 level. Sagittal and coronal reformats were then constructed. For radiation dose reduction, the following was used: automated exposure control, adjustment of mA and/or kV according to patient size. COMPARISON: None. FINDINGS: Image quality: Excellent. Bones: No fractures or dislocations. Straightening of the normal cervical lordosis. Multilevel degenerative changes, severe at C5-C6 and C6-C7. Visualized superior ribs are intact. Soft tissues: Prevertebral soft tissues are normal in thickness. No paravertebral hematomas. No apical pneumothoraces. IMPRESSION: No displaced fracture or traumatic subluxation. Dictated by: Ander Rao M.D. on 03/29/2024 at 11:01 Approved by: Ander Rao M.D. on 03/29/2024 at 11:03 Chest x-ray: Radiologist's Impression: Thomas Ann?(Tad)??89??M??1935 ? Allergy/Adv: No Known Drug Allergies (More??) Close Head CT (Signed) Ander Rao - 03/29/[address] (Signed) Ander Rao - 03/29/24 Chest X-Ray (Signed) Rhett Fox - 03/29/24 Renal Ultrasound (Signed) GaleasCeliaEdwin - 03/16/24 Chest X-Ray (Signed) Elvis Wyatt - 02/25/24 Chest X-Ray (Signed) Demond Erickson - 07/13/[address] (Signed) Bar Trevizo - 07/29/21 Renal Ultrasound (Signed) Tonny Boyle - 07/16/21 Humerus X-Ray (Signed) Pietro Gusman - 01/04/21 Renal Ultrasound (Signed) Pietro Gusman - 06/26/20 Extremity Ultrasound (Signed) Pietro Gusman - 06/18/20 Shoulder MRI (Signed) Spike Adair - 05/10/20 Shoulder X-Ray (Signed) Aly Montoya - 04/10/20 Humerus X-Ray (Signed) Aly Montoya - 04/10/20 Clavicle X-Ray (Signed) Aly Montoya - 04/10/20 Chest X-Ray (Signed) Pietro Gusman - 02/15/20 Renal Ultrasound (Signed) Aly Montoya - 06/13/19 Renal Ultrasound (Signed) Jean-Paul Vaca - 06/03/18 Ribs X-Ray (Signed) Janay Nicole - 02/09/18 [address] [address] CT Scan Report Signed Patient: Thomas Ann MR#: [id number] : 1935 Acct:[id number] Age/Sex: 89 / M Date of Service: 03/29/24 Loc: ED Accession Number: [id number] Procedure: CT cervical spine wo con Ordering Provider: Crystal Bennett D.O. PROCEDURE: CT CERVICAL SPINE WO CON INDICATIONS: unwitnessed syncope, eliquis TECHNIQUE: Noncontrast 3 mm thick sections acquired from the skull base to the T4 level. Sagittal and coronal reformats were then constructed. For radiation dose reduction, the following was used: automated exposure control, adjustment of mA and/or kV according to patient size. COMPARISON: None. FINDINGS: Image quality: Excellent. Bones: No fractures or dislocations. Straightening of the normal cervical lordosis. Multilevel degenerative changes, severe at C5-C6 and C6-C7. Visualized superior ribs are intact. Soft tissues: Prevertebral soft tissues are normal in thickness. No paravertebral hematomas. No apical pneumothoraces. IMPRESSION: No displaced fracture or traumatic subluxation. Dictated by: Ander Rao M.D. on 03/29/2024 at 11:01 Approved by: Ander Rao M.D. on 03/29/2024 at 11:03 ECG Data Attestation: I personally reviewed and interpreted this ECG as follows: Interpretation: AFib rate of 95 QRS of 100 QTC of 480, no acute ST elevation or depression noted. MDM Narrative Medical decision making narrative: History of atrial fibrillation on Eliquis who had a syncopal episode while having a bowel movement today. Per EMS and patient this has happened in the past. Labs show white count of 7.5 hemoglobin of 14 platelets of 292, INR is 1.5 consistent with being on apixaban, electrolytes are overall appropriate BUN 22 creatinine is 1.12 with a glucose of 124 LFTs are negative, troponin 0.02, BNP is 30 to 70 consistent with prior in February which was 4170 EKG shows AFib rate controlled rate of [address] shows no acute change CT cervical spine shows no acute change Chest x-ray is negative for acute change Patient was given his home carbidopa levodopa dose. He did have fluids started by EMS and completed 1L NS. Ambulation trial here. Patient did well. Does not appear to be in AFib heart rate bounces around somewhat but has been about 100. Discharge Plan Departure Patient Disposition: Home Clinical Impression: Syncope Instructions: DI for Syncope in Adults (Fainting) Activity Restrictions/Additional Instructions: Follow up with your physician as needed. Continue your home medications as prescribed. Please return for recurrent symptoms, new chest pain, shortness of breath, lightheadedness or passing out, nausea or vomiting, inability to ambulate safely or other new or concerning changes. Prescriptions: No Action donepezil 10 mg tablet 10 mg PO DAILY coenzyme Q10 [Co Q-10] 100 mg capsule 100 mg PO DAILY krill oil 500 mg capsule PO tamsulosin 0.4 mg capsule See Rx Instructions .ROUTE .COMPLEX Qty: 180 1RF Dose Instruction: TAKE 2 CAPSULES BY MOUTH EVERY NIGHT AT BEDTIME Rx Instructions: TAKE 2 CAPSULES BY MOUTH EVERY NIGHT AT BEDTIME esomeprazole magnesium 20 mg capsule,delayed release(DR/EC) 20 mg PO DAILY Qty: 90 1RF levothyroxine 112 mcg tablet See Rx Instructions .ROUTE .COMPLEX Qty: 90 3RF Dose Instruction: TAKE 1 TABLET BY MOUTH DAILY Rx Instructions: TAKE 1 TABLET BY MOUTH DAILY Eliquis 5 mg tablet 5 mg PO BID Qty: 180 0RF sulfamethoxazole-trimethoprim [Bactrim DS] 800-160 mg tablet 1 tab PO BID Qty: 10 0RF cholecalciferol (vitamin D3) 1,000 unit capsule 1,000 unit PO DAILY rosuvastatin 20 mg tablet 20 mg PO DAILY Qty: 90 1RF metoprolol succinate 25 mg tablet extended release 24 hr 12.5 mg PO DAILY lidocaine 4 % adhesive patch,medicated 1 patch topical DAILY PRN (Reason: back pain) Qty: 10 11RF memantine 10 mg tablet 10 mg PO BID carbidopa-levodopa 25-100 mg tablet 1 tab PO TID Referrals: Vidhya Quarles DO [Primary Care Provider] - Stand Alone Forms: Patient Portal/API/Survey
[2024-03-29] MEDS: CARBIDOPA-LEVODOPA 25/100 TABLET 1 EACH PO (15:35)
== END 2024-03-29 15:55 | disposition home or self-care (01) ==
PROVIDERS: Emergency Provider Emergency Medicine; Family Provider Family Medicine; PCP Family Medicine
DX: R55 Syncope and collapse (principal); G20.A1 Parkinson's disease without dyskinesia, without mention of fluctuations; F02.80 Dementia in other diseases classified elsewhere, unspecified severity, without behavioral disturbance, psychotic disturbance, mood disturbance, and anxiety; I48.91 Unspecified atrial fibrillation; Z79.01 Long term (current) use of anticoagulants
CPT/HCPCS: 70450; 71045; 72125; 80053; 82550; 83690; 83735; 83880; 84484; 85025; 85610; 85730; 93005; 99283; 99284

== ENCOUNTER 2025-02-21 18:59 | Emergency (ER) | payer BC, SELFPAY ==
[2025-02-04 14:57] VITALS: BMI 25.8
[2025-02-21] VITALS (27 sets, daily range): BP systolic 81–150; BP diastolic 49–81; PULSE 63–122; RESP 12–26; TEMP 36.9; O2SAT 86–100
--- NOTE | 2025-02-21 19:19 | EKG_ITS ---
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
--- NOTE | 2025-02-21 19:44 | ED_ITS ---
HPI - Fall <Gerson Brown, DO - Last Filed: 02/21/25 22:53> General Chief Complaint: Trauma Stated Complaint: unwitnessed GLF on Eliquis, hx dementia Time Seen by Provider: 02/21/25 19:03 Source: EMS Mode of arrival: EMS History of Present Illness HPI Narrative: 89-year-old gentleman past medical history of paroxysmal AFib on Eliquis, CAD CABG hypertension dyslipidemia Parkinson's presents today with ground level fall at home. heard a noise in the other room and ran in to see him on the ground. Patient is pleasantly demented but is able to follow commands but a poor historian at this time. He is able to move all his extremities in all directions spontaneously without pain. Related Data Home Medications ?Medication ?Instructions ?Recorded ?Confirmed metoprolol succinate 25 mg 12.5 mg PO DAILY 04/15/24 0 01/23/25 tablet,extended release 24 hr carbidopa 25 mg-levodopa 100 mg 1.5 tab PO TID 5 01/23/25 tablet mecobalamin (vitamin B12) PO 10/24/24 01/23/25 Previous Rx's ?Medication ?Instructions ?Recorded lidocaine 4 % topical patch 1 patch topical DAILY PRN back 11/27/23 pain #10 ea Disabled Parking Permit #1 ea 03/30/24 tamsulosin 0.4 mg capsule 0.8 mg (2 x 0.4 mg) PO DAILY 07/20/24 prevent urinary blockage #180 caps apixaban 5 mg tablet (Eliquis) 5 mg PO BID Prevent str saurabh in 07/27/24 atrial fibrillation #180 tabs olopatadine 0.2 % eye drops 1 drp EYE-RIGHT DAILY PRN itching 10/24/24 (Pataday Once Daily Relief) #2.5 mL esomeprazole magnesium 20 mg 20 mg PO DAILY #90 caps 0 11/17/24 capsule,delayed release levothyroxine 112 mcg tablet 112 mcg PO DAILY #90 tabs 12/29/24 Allergies Allergy/AdvReac Type Severity Reaction Status Date / Time No Known Drug Allergies Allergy Verified 02/21/25 19:06 Review of Systems <Gerson Brown, DO - Last Filed: 02/21/25 22:53> Review of Systems ROS Unobtainable: All systems reviewed & are unremarkable except as noted in HPI and below Patient History <Gerson Brown DO - Last Filed: 02/21/25 22:53> Medical History 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) Syncope History of heart attack Bradycardia Dementia Bilateral renal masses Atrial fibrillation BPH w urinary obs/LUTS Bilateral renal cysts Vision disorder Hearing deficit Chronic back pain (~2005) CAD (coronary artery disease) Surgical History Hx of CABG Anesthesia History of spinal surgery (~2007) History of knee replacement, total (~2005) History of coronary artery bypass, five (~2010) Family History Father Hypertension Heart disease Social History marital status: household members: spouse alcohol intake: current substance use type: does not use alcohol intake frequency: 0-2 drinks per day Alcohol type: wine Exam <Gerson Brown DO - Last Filed: 02/21/25 22:53> Narrative Exam Narrative: GENERAL: [89 year old patient appears stated age. Well-developed patient, in mild distress. HEAD: Atraumatic. Normocephalic. EYES: Pupils equal round and reactive. Extraocular motions intact. No scleral icterus. No injection or drainage. ENT: Nose without bleeding, purulent drainage. Throat without erythema, tonsillar hypertrophy or exudate. Airway patent. NECK: Trachea midline. Non tender CARDIOVASCULAR: Regular rate and rhythm without murmurs, gallops, or rubs. RESPIRATORY: Clear to auscultation. Breath sounds equal bilaterally. No wheezes, rales, or rhonchi. GASTROINTESTINAL: Abdomen soft, non-tender, nondistended. EXTREMITIES: No edema or joint tenderness. BACK: Nontender without deformity or crepitance. No flank tenderness. NEURO: AOx3. SKIN: No rash or erythema of visible areas Initial Vital Signs Initial Vital Signs: Vital Signs Temperature 98.5 F 02/21/25 19:06 Pulse Rate 64 02/21/25 19:06 Respiratory Rate 18 02/21/25 19:06 Blood Pressure 150/78 H 02/21/25 19:06 Pulse Oximetry 92 02/21/25 19:06 Oxygen Delivery Method Room Air 02/21/25 19:06 <Crystal Bennett, DO - Last Filed: 02/22/25 02:16> Initial Vital Signs Initial Vital Signs: Vital Signs Temperature 98.5 F 02/21/25 19:06 Pulse Rate 64 02/21/25 19:06 Respiratory Rate 18 02/21/25 19:06 Blood Pressure 150/78 H 02/21/25 19:06 Pulse Oximetry 92 02/21/25 19:06 Oxygen Delivery Method Room Air 02/21/25 19:06 Course <Gerson HaFranciAicha Brown, DO - Last Filed: 02/21/25 22:53> Orders Ordered: ED Orders 02/21/25 19:19 EKG-12 Lead Stat 02/21/25 19:20 Complete Blood Count AUTO DIFF Stat Comprehensive Metabolic Panel Stat [facility] Creatine Kinase MB Routine Lipase Stat Magnesium Stat NT-proBNP (BNP-Adult 18+) Stat Troponin I Stat 02/21/25 21:18 CT cervical spine wo con Stat CT head/brain wo con Stat 02/21/25 21:44 XR chest 1V Stat EKG-12 Lead Stat 02/21/25 23:10 Trop I [Troponin I] Stat Discontinued Medications Diltiazem HCl (Diltiazem 25 Mg/5 Ml Sdv) 20 mg IV NOW ONE Stop: 02/21/25 21:44 Last Admin: 02/21/25 21:54 Dose: 20 mg Documented By: DMITRY Lactated Ringer's (Lactated Ringers) 500 mls @ 1,000 mls/hr IV BOLUS ONE Stop: 02/21/25 22:44 Last Infusion: 02/21/25 23:06 Dose: Infused Documented By: Admin: 02/21/25 22:16 Dose: 1,000 mls/hr Documented By: DMITRY Vital Signs Vital signs: Vital Signs - 8 hr 02/21/25 19:06 02/21/25 19:14 02/21/25 19:30 Temperature 98.5 F Pulse Rate 64 102 H 105 H Respiratory Rate 18 Blood Pressure 150/78 H Pulse Oximetry 92 100 95 Oxygen Delivery Method Room Air Oxygen Flow Rate 02/21/25 20:00 02/21/25 20:01 02/21/25 20:01 Temperature Pulse Rate 92 H 101 H Respiratory Rate Blood Pressure 97/59 L Pulse Oximetry 91 91 Oxygen Delivery Method Oxygen Flow Rate 02/21/25 20:30 02/21/25 21:00 02/21/25 21:00 Temperature Pulse Rate 104 H 108 H Respiratory Rate 22 26 H Blood Pressure 100/66 Pulse Oximetry 96 96 Oxygen Delivery Method Room Air Oxygen Flow Rate 02/21/25 21:38 02/21/25 21:39 02/21/25 21:39 Temperature Pulse Rate 122 H 119 H Respiratory Rate 24 Blood Pressure 106/81 Pulse Oximetry 97 94 Oxygen Delivery Method Oxygen Flow Rate 02/21/25 21:54 02/21/25 21:55 02/21/25 21:55 Temperature Pulse Rate 116 H 105 H Respiratory Rate 21 Blood Pressure 129/76 129/76 Pulse Oximetry 96 Oxygen Delivery Method Oxygen Flow Rate 02/21/25 22:00 02/21/25 22:02 02/21/25 22:02 Temperature Pulse Rate 65 64 Respiratory Rate 18 22 Blood Pressure 81/49 L Pulse Oximetry 95 93 Oxygen Delivery Method Oxygen Flow Rate 02/21/25 22:06 02/21/25 22:06 02/21/25 22:10 Temperature Pulse Rate 67 Respiratory Rate 19 Blood Pressure 84/52 L 86/54 L Pulse Oximetry 88 L Oxygen Delivery Method Room Air Oxygen Flow Rate 02/21/25 22:10 02/21/25 22:12 02/21/25 22:12 Temperature Pulse Rate 70 63 Respiratory Rate 20 22 Blood Pressure 88/55 L Pulse Oximetry 86 L 93 Oxygen Delivery Method Nasal Cannula Oxygen Flow Rate 2 02/21/25 22:13 02/21/25 22:13 02/21/25 22:20 Temperature Pulse Rate 64 66 Respiratory Rate 24 26 H Blood Pressure 92/50 L Pulse Oximetry 92 91 Oxygen Delivery Method Oxygen Flow Rate 02/21/25 22:20 02/21/25 22:30 02/21/25 22:30 Temperature Pulse Rate 74 Respiratory Rate 23 Blood Pressure 91/53 L 97/52 L Pulse Oximetry 93 Oxygen Delivery Method Oxygen Flow Rate 02/21/25 22:40 02/21/25 22:40 02/21/25 22:50 Temperature Pulse Rate 68 72 Respiratory Rate 18 19 Blood Pressure 107/56 L Pulse Oximetry 91 92 Oxygen Delivery Method Oxygen Flow Rate 02/21/25 22:50 02/21/25 23:00 02/21/25 23:00 Temperature Pulse Rate 71 Respiratory Rate 18 Blood Pressure 95/53 L 91/55 L Pulse Oximetry 93 Oxygen Delivery Method Oxygen Flow Rate 02/21/25 23:10 02/21/25 23:10 02/21/25 23:20 Temperature Pulse Rate 88 Respiratory Rate 23 Blood Pressure 93/52 L 98/55 L Pulse Oximetry 92 Oxygen Delivery Method Nasal Cannula Oxygen Flow Rate 2 02/21/25 23:20 02/21/25 23:30 02/21/25 23:30 Temperature Pulse Rate 73 69 Respiratory Rate 20 18 Blood Pressure 104/59 L Pulse Oximetry 96 92 Oxygen Delivery Method Oxygen Flow Rate 02/21/25 23:40 02/21/25 23:40 02/21/25 23:50 Temperature Pulse Rate 68 Respiratory Rate 20 Blood Pressure 126/67 109/56 L Pulse Oximetry 92 Oxygen Delivery Method Oxygen Flow Rate 02/21/25 23:50 02/22/25 00:00 02/22/25 00:01 Temperature Pulse Rate 83 95 H Respiratory Rate 21 19 Blood Pressure 119/55 L Pulse Oximetry 95 95 Oxygen Delivery Method Oxygen Flow Rate 02/22/25 00:01 Temperature Pulse Rate 103 H Respiratory Rate 24 Blood Pressure Pulse Oximetry 96 Oxygen Delivery Method Nasal Cannula Oxygen Flow Rate 2 <Crystal Bennett, DO - Last Filed: 02/22/25 02:16> Orders Ordered: ED Orders 02/21/25 19:19 EKG-12 Lead Stat 02/21/25 19:20 Complete Blood Count AUTO DIFF Stat Comprehensive Metabolic Panel Stat [facility] Creatine Kinase MB Routine Lipase Stat Magnesium Stat NT-proBNP (BNP-Adult 18+) Stat Troponin I Stat 02/21/25 21:18 CT cervical spine wo con Stat CT head/brain wo con Stat 02/21/25 21:44 XR chest 1V Stat EKG-12 Lead Stat 02/21/25 23:10 Trop I [Troponin I] Stat Discontinued Medications Diltiazem HCl (Diltiazem 25 Mg/5 Ml Sdv) 20 mg IV NOW ONE Stop: 02/21/25 21:44 Last Admin: 02/21/25 21:54 Dose: 20 mg Documented By: RLC Lactated Ringer's (Lactated Ringers) 500 mls @ 1,000 mls/hr IV BOLUS ONE Stop: 02/21/25 22:44 Last Infusion: 02/21/25 23:06 Dose: Infused Documented By: Admin: 02/21/25 22:16 Dose: 1,000 mls/hr Documented By: DMITRY Vital Signs Vital signs: Vital Signs - 8 hr 02/21/25 19:06 02/21/25 19:14 02/21/25 19:30 Temperature 98.5 F Pulse Rate 64 102 H 105 H Respiratory Rate 18 Blood Pressure 150/78 H Pulse Oximetry 92 100 95 Oxygen Delivery Method Room Air Oxygen Flow Rate 02/21/25 20:00 02/21/25 20:01 02/21/25 20:01 Temperature Pulse Rate 92 H 101 H Respiratory Rate Blood Pressure 97/59 L Pulse Oximetry 91 91 Oxygen Delivery Method Oxygen Flow Rate 02/21/25 20:30 02/21/25 21:00 02/21/25 21:00 Temperature Pulse Rate 104 H 108 H Respiratory Rate 22 26 H Blood Pressure 100/66 Pulse Oximetry 96 96 Oxygen Delivery Method Room Air Oxygen Flow Rate 02/21/25 21:38 02/21/25 21:39 02/21/25 21:39 Temperature Pulse Rate 122 H 119 H Respiratory Rate 24 Blood Pressure 106/81 Pulse Oximetry 97 94 Oxygen Delivery Method Oxygen Flow Rate 02/21/25 21:54 02/21/25 21:55 02/21/25 21:55 Temperature Pulse Rate 116 H 105 H Respiratory Rate 21 Blood Pressure 129/76 129/76 Pulse Oximetry 96 Oxygen Delivery Method Oxygen Flow Rate 02/21/25 22:00 02/21/25 22:02 02/21/25 22:02 Temperature Pulse Rate 65 64 Respiratory Rate 18 22 Blood Pressure 81/49 L Pulse Oximetry 95 93 Oxygen Delivery Method Oxygen Flow Rate 02/21/25 22:06 02/21/25 22:06 02/21/25 22:10 Temperature Pulse Rate 67 Respiratory Rate 19 Blood Pressure 84/52 L 86/54 L Pulse Oximetry 88 L Oxygen Delivery Method Room Air Oxygen Flow Rate 02/21/25 22:10 02/21/25 22:12 02/21/25 22:12 Temperature Pulse Rate 70 63 Respiratory Rate 20 22 Blood Pressure 88/55 L Pulse Oximetry 86 L 93 Oxygen Delivery Method Nasal Cannula Oxygen Flow Rate 2 02/21/25 22:13 02/21/25 22:13 02/21/25 22:20 Temperature Pulse Rate 64 66 Respiratory Rate 24 26 H Blood Pressure 92/50 L Pulse Oximetry 92 91 Oxygen Delivery Method Oxygen Flow Rate 02/21/25 22:20 02/21/25 22:30 02/21/25 22:30 Temperature Pulse Rate 74 Respiratory Rate 23 Blood Pressure 91/53 L 97/52 L Pulse Oximetry 93 Oxygen Delivery Method Oxygen Flow Rate 02/21/25 22:40 02/21/25 22:40 02/21/25 22:50 Temperature Pulse Rate 68 72 Respiratory Rate 18 19 Blood Pressure 107/56 L Pulse Oximetry 91 92 Oxygen Delivery Method Oxygen Flow Rate 02/21/25 22:50 02/21/25 23:00 02/21/25 23:00 Temperature Pulse Rate 71 Respiratory Rate 18 Blood Pressure 95/53 L 91/55 L Pulse Oximetry 93 Oxygen Delivery Method Oxygen Flow Rate 02/21/25 23:10 02/21/25 23:10 02/21/25 23:20 Temperature Pulse Rate 88 Respiratory Rate 23 Blood Pressure 93/52 L 98/55 L Pulse Oximetry 92 Oxygen Delivery Method Nasal Cannula Oxygen Flow Rate 2 02/21/25 23:20 02/21/25 23:30 02/21/25 23:30 Temperature Pulse Rate 73 69 Respiratory Rate 20 18 Blood Pressure 104/59 L Pulse Oximetry 96 92 Oxygen Delivery Method Oxygen Flow Rate 02/21/25 23:40 02/21/25 23:40 02/21/25 23:50 Temperature Pulse Rate 68 Respiratory Rate 20 Blood Pressure 126/67 109/56 L Pulse Oximetry 92 Oxygen Delivery Method Oxygen Flow Rate 02/21/25 23:50 02/22/25 00:00 02/22/25 00:01 Temperature Pulse Rate 83 95 H Respiratory Rate 21 19 Blood Pressure 119/55 L Pulse Oximetry 95 95 Oxygen Delivery Method Oxygen Flow Rate 02/22/25 00:01 Temperature Pulse Rate 103 H Respiratory Rate 24 Blood Pressure Pulse Oximetry 96 Oxygen Delivery Method Nasal Cannula Oxygen Flow Rate 2 MDM - Fall <Gerson Brown, DO - Last Filed: 02/21/25 22:53> Lab Data 02/21/25 19:20 02/21/25 19:20 Labs: Lab Results 02/21/25 02/21/25 Range/Units 19:20 23:10 WBC 4.4 L (4.5-11.0) X10^3/uL RBC 3.73 L (4.5-5.9) X10^6/uL Hgb 9.1 L (13.5-17.5) g/dL Hct 28.5 L (41-53) % MCV 76.4 L (80-100) fL MCH 24.5 L (26-34) PG MCHC 32.1 (30-36) % RDW 18.8 H (11.6-14.8) % Plt Count 318 (150-400) X10^3/uL Neut % (Auto) 54.3 (50-75) % Lymph % (Auto) 33.6 (25-40) % Upton % (Auto) 11.4 (3-14) % Eos % (Auto) 0.2 L (2-4) % Baso % (Auto) 0.5 (0-2) % Neut # (Auto) 2400 (3664-7493) /uL Lymph # (Auto) 1500 (3546-2679) /uL Upton # (Auto) 500 (0-900) /uL Eos # (Auto) 0 (0-450) /uL Baso # (Auto) 0 (0-100) /uL Sodium 142 (137-145) mmol/L Potassium 3.8 (3.4-5.1) mmol/L Chloride 109 H (98-107) mmol/L Carbon Dioxide 22 (22-32) mmol/L BUN 32 H (9-20) mg/dL Creatinine 0.98 (0.66-1.25) mg/dL Estimated GFR > 60 (>60) mL/min BUN/Creatinine Ratio 32.7 H (6-22) Glucose 102 H (70-99) mg/dL Calcium 9.4 (8.4-10.2) mg/dL Magnesium 1.9 (1.6-2.3) mg/dL Total Bilirubin 0.5 (0.2-1.3) mg/dL AST 53 (17-59) IU/L ALT 19 (<50) IU/L Alkaline Phosphatase 72 (38-126) U/L Troponin I 0.040 H 0.037 H (0.01-0.034) ng/mL NT-Pro-B Natriuret Pep 3260 H (<450) pg/mL Total Protein 6.6 (6.3-8.2) g/dL Albumin 3.8 (3.5-5.0) g/dL Globulin 2.8 (1.7-4.1) g/dL Albumin/Globulin Ratio 1.4 (1.0-2.8) Lipase 76 (23-300) U/L Point of Care Testing Glucose POC [address] scan - head: Radiologist's Impression: [address] [address] [address] Scan Report Signed Patient: Thomas Ann MR#: [id number] : 1935 Acct:[id number] Age/Sex: 89 / M Date of Service: 02/16/25 Loc: ED Accession Number: [id number] Procedure: CT head/brain wo con Ordering Provider: Brittney Olea D.O. PROCEDURE: CT HEAD/BRAIN WO CON INDICATIONS: fall on eliquis TECHNIQUE: Noncontrast 4.5 mm thick angled axial sections acquired from the foramen magnum to the vertex, with coronal and sagittal reformats. For radiation dose reduction, the following was used: automated exposure control, adjustment of mA and/or kV according to patient size. COMPARISON: [facility], CT, CT HEAD/BRAIN WO CON, 02/04/2025, 11:13. FINDINGS: Image quality: Diagnostic. CSF spaces: Basal cisterns are patent. No extra-axial fluid collections. The ventricles are symmetric in size and shape. Brain: No intracranial bleeds or mass effect. There is cerebral volume loss, with resultant ventricular and sulcal prominence. There are periventricular and deep white matter chronic small vessel ischemic changes. There is intracranial internal carotid artery atherosclerosis. Skull and face: Calvarium and visualized facial bones appear intact, without suspicious lesions. Sinuses: Visualized sinuses and mastoids are clear. IMPRESSION: No acute intracranial pathology. Chest x-ray: Radiologist's Impression: [address] [address] XRay Report Signed Patient: Thomas Ann MR#: [id number] : 1935 Acct:[id number] Age/Sex: 89 / M Date of Service: 02/16/25 Loc: ED Accession Number: [id number] Procedure: XR chest 1V Ordering Provider: Brittney Olea D.O. PROCEDURE: XR CHEST 1V INDICATIONS: Fall TECHNIQUE: One view of the chest was acquired. COMPARISON: [facility], CR, XR CHEST 1V, 02/04/2025, 11:04. FINDINGS: Surgical changes and devices: Median sternotomy wires and surgical clips are seen. Lungs and pleura: Lungs are clear. No pleural effusions or pneumothorax. Mediastinum: Mediastinal contours appear normal. Heart size is normal. Bones and chest wall: No suspicious bony lesions. Overlying soft tissues appear unremarkable. IMPRESSION: No acute cardiopulmonary pathology. ECG Data Interpretation: Afib HR 97 OH undetermined QRS [address]-t wave change Unchanged from 02/16/25 MDM Narrative Medical decision making narrative: All lab work, vital signs, nurse triage note, medication list, previous ER visits, and all imaging studies reviewed. Chest x-ray showed no acute process. CT head showed no acute intracranial pathology no fracture or hemorrhage. CT cervical spine showed no displaced fracture or traumatic subluxation. WBC 4.4 hemoglobin 9.1 platelets 318 sodium 142 potassium 3.8 chloride 109 CO2 22 BUN 32 creatinine 0.98 glucose 102 calcium 9.4 magnesium 1.9 T bili 0.5. Troponin 1st set 0.040. BNP 3260. Second set troponin pending. Patient signed out to Dr. Bennett at shift change pending final disposition. Patient in atrial fibrillation heart rate 90s to 120s given diltiazem 25 mg IV along with lactated ringer 500ml bolus for BP 80/50s. <Crystal Bennett, - Last Filed: 02/22/25 02:16> Lab Data Labs: Lab Results 02/21/25 02/21/25 Range/Units 19:20 23:10 WBC 4.4 L (4.5-11.0) X10^3/uL RBC 3.73 L (4.5-5.9) X10^6/uL Hgb 9.1 L (13.5-17.5) g/dL Hct 28.5 L (41-53) % MCV 76.4 L (80-100) fL MCH 24.5 L (26-34) PG MCHC 32.1 (30-36) % RDW 18.8 H (11.6-14.8) % Plt Count 318 (150-400) X10^3/uL Neut % (Auto) 54.3 (50-75) % Lymph % (Auto) 33.6 (25-40) % Upton % (Auto) 11.4 (3-14) % Eos % (Auto) 0.2 L (2-4) % Baso % (Auto) 0.5 (0-2) % Neut # (Auto) 2400 (9529-6087) /uL Lymph # (Auto) 1500 (5932-0468) /uL Upton # (Auto) 500 (0-900) /uL Eos # (Auto) 0 (0-450) /uL Baso # (Auto) 0 (0-100) /uL Sodium 142 (137-145) mmol/L Potassium 3.8 (3.4-5.1) mmol/L Chloride 109 H (98-107) mmol/L Carbon Dioxide 22 (22-32) mmol/L BUN 32 H (9-20) mg/dL Creatinine 0.98 (0.66-1.25) mg/dL Estimated GFR > 60 (>60) mL/min BUN/Creatinine Ratio 32.7 H (6-22) Glucose 102 H (70-99) mg/dL Calcium 9.4 (8.4-10.2) mg/dL Magnesium 1.9 (1.6-2.3) mg/dL Total Bilirubin 0.5 (0.2-1.3) mg/dL AST 53 (17-59) IU/L ALT 19 (<50) IU/L Alkaline Phosphatase 72 (38-126) U/L Troponin I 0.040 H 0.037 H (0.01-0.034) ng/mL NT-Pro-B Natriuret Pep 3260 H (<450) pg/mL Total Protein 6.6 (6.3-8.2) g/dL Albumin 3.8 (3.5-5.0) g/dL Globulin 2.8 (1.7-4.1) g/dL Albumin/Globulin Ratio 1.4 (1.0-2.8) Lipase 76 (23-300) U/L Point of Care Testing Glucose POC 115 MDM Narrative Medical decision making narrative: All lab work, vital signs, nurse triage note, medication list, previous ER visits, and all imaging studies reviewed. Chest x-ray showed no acute process. CT head showed no acute intracranial pathology no fracture or hemorrhage. CT cervical spine showed no displaced fracture or traumatic subluxation. WBC 4.4 hemoglobin 9.1 platelets 318 sodium 142 potassium 3.8 chloride 109 CO2 22 BUN 32 creatinine 0.98 glucose 102 calcium 9.4 magnesium 1.9 T bili 0.5. Troponin 1st set 0.040. BNP 3260. Second set troponin pending. Patient signed out to Dr. Bennett at shift change pending final disposition. Patient in atrial fibrillation heart rate 90s to 120s given diltiazem 25 mg IV along with lactated ringer 500ml bolus for BP 80/50s.. Dr. Bennett 02/21/25: Patient signed out to myself. Awaiting repeat troponin. Labs show white count of 4.4, hemoglobin of 9.1 consistent with priors in January, prior to that in 2023 patient's hemoglobin was 14 platelets are 318. Chemistries show chloride of 109 BUN 32 creatinine is 0.98 glucose is 102 LFTs are normal, troponins 0.040 with a repeat of 0.037 and a BNP of 3260. Patient had head CT negative for acute intracranial pathology no fracture or hemorrhage. CT cervical spine shows no displaced fracture or traumatic subluxation. Chest x-ray shows no acute cardiopulmonary abnormality. EKG shows atrial fibrillation rate of 97, no acute ST-elevation or depression appreciated. 89-year-old female history of memory issues, Parkinson's, atrial fibrillation anticoagulated had unwitnessed ground level fall was in the other room. During patient's stay had an episode of AFib RVR with a heart rate up to the 120s patient received 20 mg of diltiazem and a 500 mL bolus of LR. Patient has been up in the department. Able to stand and pivot. Family contacted regarding d/c home. Discharge Plan Departure Patient Disposition: Home Clinical Impression: Atrial fibrillation, Fall, Anemia Instructions: How to Prevent Falls Activity Restrictions/Additional Instructions: You do appear to be in atrial fibrillation today. Your workup did show your hemoglobin has been low recently this should be rechecked with your primary care physician in the next week. Please return for any new or concerning changes, sudden changes to mentation, persistent pain, any new depressed difficulty with breathing, persistent vomiting, lightheadedness or passing out or other new or concerning changes. Prescriptions: No Action (DME) Disabled Parking Permit See Rx Instructions .ROUTE .MEDSUPPLY Qty: 1 0RF Rx Instructions: Valid for 5 years Eliquis 5 mg tablet 5 mg PO BID Qty: 180 3RF esomeprazole magnesium 20 mg capsule,delayed release(DR/EC) 20 mg PO DAILY Qty: 90 3RF levothyroxine 112 mcg tablet 112 mcg PO DAILY Qty: 90 3RF Rx Instructions: 112 mcg orally daily; lidocaine 4 % adhesive patch,medicated 1 patch topical DAILY PRN (Reason: back pain) Qty: 10 11RF metoprolol succinate 25 mg tablet extended release 24 hr 12.5 mg PO DAILY tamsulosin 0.4 mg capsule 0.8 mg PO DAILY Qty: 180 3RF mecobalamin (vitamin B12) PO Patient Comments: Children's liquid olopatadine [Pataday Once Daily Relief] 0.2 % drops 1 drp EYE-RIGHT DAILY PRN (Reason: itching) Qty: 2.5 0RF carbidopa-levodopa 25-100 mg tablet 1.5 tab PO TID Referrals: Vidhya Quarles DO [Primary Care Provider, Medical] Stand Alone Forms: Patient Portal/API
--- NOTE | 2025-02-21 20:13 | PC.NURSE ---
This RN gave pt's Rachel an update. She was advised it was still early in the process but that her was resting comfortably at this time. Pt's states she is unable to come to the hospital d/t lack of transportation. Would like another update once labwork and imaging result. She can be reached at [phone].
--- NOTE | 2025-02-21 21:18 | DI.CT.S_ITS ---
PROCEDURE: CT HEAD/BRAIN WO CON INDICATIONS: Fall on thinners/Hit head TECHNIQUE: Noncontrast 4.5 mm thick angled axial sections acquired from the foramen magnum to the vertex, with coronal and sagittal reformats. For radiation dose reduction, the following was used: automated exposure control, adjustment of mA and/or kV according to patient size. COMPARISON: [facility], CT, CT HEAD/BRAIN WO CON, 02/16/2025, 7:42. FINDINGS: Image quality: Diagnostic. CSF spaces: Basal cisterns are patent. No extra-axial fluid collections. Ventricles are normal in size and shape. Brain: No midline shift. No intracranial mass effect or hemorrhage. Bauer- white matter interface is normal. Patchy bilateral white matter hypoattenuation, unchanged. Diffuse cerebral volume loss. Skull and face: Calvarium and visualized facial bones are intact, without suspicious lesions. Sinuses: Visualized sinuses and mastoids are clear. IMPRESSION: No acute intracranial pathology. No fracture or hemorrhage. Dictated by: Kev Valdes M.D. on 02/21/2025 at 21:59 Approved by: Kev Valdes M.D. on 02/21/2025 at 22:02
--- NOTE | 2025-02-21 21:18 | DI.CT.S_ITS ---
PROCEDURE: CT CERVICAL SPINE WO CON INDICATIONS: Fall on thinners/Hit head TECHNIQUE: Noncontrast 3 mm thick sections acquired from the skull base to the T4 level. Sagittal and coronal reformats were then constructed. For radiation dose reduction, the following was used: automated exposure control, adjustment of mA and/or kV according to patient size. COMPARISON: [facility], CT, CT CERVICAL SPINE WO CON, 03/29/2024, 10:37. FINDINGS: Image quality: Excellent. Bones: No fractures or dislocations. Visualized superior ribs are intact. Severe multilevel cervical spondylosis including chronic anterolisthesis at C7-T1. Soft tissues: Prevertebral soft tissues are normal in thickness. No paravertebral hematomas. No apical pneumothoraces. IMPRESSION: No displaced fracture or traumatic subluxation. Dictated by: Kev Valdes M.D. on 02/21/2025 at 22:02 Approved by: Kev Valdes M.D. on 02/21/2025 at 22:04
--- NOTE | 2025-02-21 21:44 | DI.RAD.S_ITS ---
PROCEDURE: XR CHEST 1V INDICATIONS: chest pain TECHNIQUE: One view of the chest was acquired. COMPARISON: [facility], CR, XR CHEST 1V, 02/16/2025, 6:58. FINDINGS: Surgical changes and devices: Median sternotomy and CABG. Lungs and pleura: Lungs are clear. No pleural effusions or pneumothorax. Mediastinum: Mediastinal contours appear normal. Heart size is normal. Bones and chest wall: No suspicious bony lesions. Overlying soft tissues appear unremarkable. IMPRESSION: No acute cardiopulmonary abnormality is seen. Dictated by: Kev Valdes M.D. on 02/21/2025 at 21:59 Approved by: Kev Valdes M.D. on 02/21/2025 at 21:59
[2025-02-21 21:53] LABS: Add Manual Diff / Slide Review NO; Hematocrit 28.5 % (41-53); Hemoglobin 9.1 g/dL (13.5-17.5); Lymphocytes Absolute Auto 1500 /uL (1100-4500); Mean Corpuscular HGB Conc 32.1 % (30-36); Mean Corpuscular Hemoglobin 24.5 PG (26-34); Mean Corpuscular Volume 76.4 fL (80-100); Platelet Count 318 X10^3/uL (150-400)
[2025-02-21 21:57] LABS: Alanine Aminotransferase 19 IU/L (<50); Albumin 3.8 g/dL (3.5-5.0); Albumin Globulin Ratio 1.4 (1.0-2.8); Alkaline Phosphatase 72 U/L (38-126); Blood Urea Nitrogen 32 mg/dL (9-20); Calcium 9.4 mg/dL (8.4-10.2); Carbon Dioxide 22 mmol/L (22-32); Chloride 109 mmol/L (98-107); Estimated Glomerular Filt Rate > 60 mL/min (>60); Globulin 2.8 g/dL (1.7-4.1); Glucose 102 mg/dL (70-99); HEMOLYSIS < 15 (0-50); Lipase 76 U/L (23-300); Magnesium 1.9 mg/dL (1.6-2.3); Potassium 3.8 mmol/L (3.4-5.1); Sodium 142 mmol/L (137-145); Total Protein 6.6 g/dL (6.3-8.2)
[2025-02-21 22:09] LABS: NT-proBNP (BNP-Adult 18+) 3260 pg/mL (<450); Troponin I 0.040 ng/mL (0.01-0.034)
[2025-02-21] MEDS: LACTATED RINGERS 500 ML 1000 ML IV (22:16)
[2025-02-21 23:39] LABS: Troponin I 0.037 ng/mL (0.01-0.034)
[2025-02-22] VITALS: PULSE 95; RESP 19; O2SAT 95
[2025-02-22 00:01] VITALS: BP 119/55; PULSE 103; RESP 24; O2SAT 96
--- NOTE | 2025-02-22 00:36 | PC.NURSE ---
Pt is confused and has fully disconnected himself from the monitor. MD is aware.
[2025-02-23 06:36] LABS: Labcorp Creatine Kinase MB 4.6 ng/mL (0.0-10.4)
== END 2025-02-22 01:45 | disposition home or self-care (01) ==
PROVIDERS: Family Medicine; Emergency Provider Emergency Medicine; Family Provider Family Medicine; PCP Family Medicine
DX: I48.91 Unspecified atrial fibrillation (principal); W18.30XA Fall on same level, unspecified, initial encounter; S09.90XA Unspecified injury of head, initial encounter; D64.9 Anemia, unspecified; Z79.01 Long term (current) use of anticoagulants
CPT/HCPCS: 36415; 70450; 71045; 72125; 80053; 82553; 83690; 83735; 83880; 84484; 85025; 93005; 93010; 96361; 96374; 99285

== ENCOUNTER 2025-02-23 11:48 | Observation (INO) | payer BC, SELFPAY ==
[2025-02-04 14:57] VITALS: BMI 25.8
[2025-02-23] VITALS (22 sets, daily range): BP systolic 99–140; BP diastolic 54–88; PULSE 64–124; RESP 12–50; TEMP 36.2–36.6; O2SAT 97–100; BMI 18.7
--- NOTE | 2025-02-23 12:08 | ED.FALL ---
HPI - Fall General Chief Complaint: Trauma Stated Complaint: GLF +thinners cog decline Time Seen by Provider: 02/23/25 11:50 History of Present Illness HPI Narrative: 89-year-old gentleman past medical history of paroxysmal atrial fibrillation on Eliquis CABG hypertension dyslipidemia Parkinson's disease seen in the ER for multiple falls recently including today whereby patient was found down after the dog was barking and called EMS. He is pleasantly demented unable to give a good history but family is prepared to have him admitted to a senior living facility when his high fall risk and frequent falls. Other than what is stated 14 point review of system is negative. Related Data Home Medications ?Medication ?Instructions ?Recorded ?Confirmed metoprolol succinate 25 mg 12.5 mg PO DAILY 04/15/24 01/23/25 tablet,extended release 24 hr carbidopa 25 mg-levodopa 100 mg 1.5 tab PO TID 07/20/24 01/23/25 tablet mecobalamin (vitamin B12) PO 10/24/24 01/23/25 Previous Rx's ?Medication ?Instructions ?Recorded lidocaine 4 % topical patch 1 patch topical DAILY PRN back 11/27/23 pain #10 ea Disabled Parking Permit #1 ea 03/30/24 tamsulosin 0.4 mg capsule 0.8 mg (2 x 0.4 mg) PO DAILY 07/20/24 prevent urinary blockage #180 caps apixaban 5 mg tablet (Eliquis) 5 mg PO BID Prevent stroke in 07/27/24 atrial fibrillation #180 tabs olopatadine 0.2 % eye drops 1 drp EYE-RIGHT DAILY PRN itching 10/24/24 (Pataday Once Daily Relief) #2.5 mL esomeprazole magnesium 20 mg 20 mg PO DAILY #90 caps 11/17/24 capsule,delayed release levothyroxine 112 mcg tablet 112 mcg PO DAILY #90 tabs 12/29/24 Allergies Allergy/AdvReac Type Severity Reaction Status Date / Time No Known Drug Allergies Allergy Verified 02/21/25 19:06 Review of Systems Review of Systems ROS Unobtainable: All systems reviewed & are unremarkable except as noted in HPI and below Patient History Medical History 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) Syncope History of heart attack Bradycardia Dementia Bilateral renal masses Atrial fibrillation BPH w urinary obs/LUTS Bilateral renal cysts Vision disorder Hearing deficit Chronic back pain (~2005) CAD (coronary artery disease) Surgical History Hx of CABG Anesthesia History of spinal surgery (~2007) History of knee replacement, total (~2005) History of coronary artery bypass, five (~2010) Family History Father Hypertension Heart disease Social History marital status: household members: spouse alcohol intake: current substance use type: does not use alcohol intake frequency: 0-2 drinks per day Alcohol type: wine Exam Narrative Exam Narrative: GENERAL: [89] year old patient appears stated age. Thin-appearing patient, in mild distress. HEAD: Atraumatic. Normocephalic. EYES: Pupils equal round and reactive. Extraocular motions intact. No scleral icterus. No injection or drainage. ENT: Nose without bleeding, purulent drainage. Throat without erythema, tonsillar hypertrophy or exudate. Airway patent. NECK: Trachea midline. Non tender CARDIOVASCULAR: Tachycardic irregularly irregular rate and rhythm without murmurs, gallops, or rubs. RESPIRATORY: Clear to auscultation. Breath sounds equal bilaterally. No wheezes, rales, or rhonchi. GASTROINTESTINAL: Abdomen soft, non-tender, nondistended. EXTREMITIES: No edema or joint tenderness. BACK: Nontender without deformity or crepitance. No flank tenderness. NEURO: AOx1. GCS 15 SKIN: No rash or erythema of visible areas Initial Vital Signs Initial Vital Signs: Vital Signs Temperature 97.8 F 02/23/25 11:54 Pulse Rate 124 H 02/23/25 11:54 Respiratory Rate 20 02/23/25 11:54 Blood Pressure 123/80 02/23/25 11:54 Pulse Oximetry 99 02/23/25 11:54 Oxygen Delivery Method Room Air 02/23/25 11:54 Course Orders Ordered: ED Orders 02/23/25 12:01 XR chest 1V Stat Complete Blood Count AUTO DIFF Stat Comprehensive Metabolic Panel Stat Lipase Stat Magnesium Stat NT-proBNP (BNP-Adult 18+) Stat PTT Partial Thromboplastin Sravan Stat Prothrombin Time INR Stat Troponin & CK Cardiac Panel Stat EKG-12 Lead Stat 02/23/25 12:02 Consult to [facility] - Glass Deposition Tender Stat 02/23/25 12:07 XR pelvis 1-2V Stat Vital Signs Vital signs: Vital Signs - 8 hr 02/23/25 11:54 Temperature 97.8 F Pulse Rate 124 H Respiratory Rate 20 Blood Pressure 123/80 Pulse Oximetry 99 Oxygen Delivery Method Room Air MDM - Fall Imaging Data CT scan - head: Radiologist's Impression: [address] [address] [address] Scan Report Signed Patient: Thomas Ann MR#: [id number] : 1935 Acct:[id number] Age/Sex: 89 / M Date of Service: 02/23/25 Loc: ED Accession Number: [id number] Procedure: CT head/brain wo con Ordering Provider: Gerson Brown D.O. PROCEDURE: CT HEAD/BRAIN WO CON INDICATIONS: fall TECHNIQUE: Noncontrast 4.5 mm thick angled axial sections acquired from the foramen magnum to the vertex, with coronal and sagittal reformats. For radiation dose reduction, the following was used: automated exposure control, adjustment of mA and/or kV according to patient size. COMPARISON: [facility], CT, CT HEAD/BRAIN WO CON, 02/21/2025, 21:27. FINDINGS: Image quality: Diagnostic CSF spaces: Basal cisterns are patent. Lateral ventricles are symmetric. Volume: Vascular calcifications. Periventricular white matter disease is commonly seen with chronic microangiopathy. Volume loss is present. These findings are moderate Brain: No acute hemorrhage. No gross loss of mendez-white differentiation Craniofacial structures: No significant paranasal sinus opacity. IMPRESSION: No acute intracranial pathology. Chest x-ray: Radiologist's Impression: [address] [address] XRay Report Signed Patient: Thomas Ann MR#: [id number] : 1935 Acct:[id number] Age/Sex: 89 / M Date of Service: 02/23/25 Loc: ED Accession Number: [id number] Procedure: XR chest 1V Ordering Provider: Gerson Brown D.O. PROCEDURE: XR CHEST 1V INDICATIONS: fall TECHNIQUE: One view of the chest was acquired. COMPARISON: [facility], CR, XR CHEST 1V, 02/21/2025, 21:42. [facility] CR, XR CHEST 1V, 02/16/2025, 6:58. FINDINGS AND IMPRESSION: On this single view study, no pneumothorax, airspace consolidation, or pleural effusion is seen. Mediastinal postsurgical changes and sternotomy wires. Normal heart size. Degenerative osseous findings. Extremity x-ray #2: Radiologist's Impression: [address] [address] XRay Report Signed Patient: Thomas Ann MR#: [id number] : 1935 Acct:[id number] Age/Sex: 89 / M Date of Service: 02/23/25 Loc: ED Accession Number: [id number] Procedure: XR pelvis 1-2V Ordering Provider: Gerson Brown D.O. PROCEDURE: XR PELVIS 1-2V INDICATIONS: GROUND LEVEL FALL TECHNIQUE: 1 view(s) of the pelvis acquired. COMPARISON: [facility], XR PELVIS 1-2V, 02/04/2025, 11:04. FINDINGS AND IMPRESSION: Indeterminate appearance of the femoral necks due to position. No grossly displaced fracture is identified. No dislocation. If there is high concern, consider repeat two-view radiograph versus CT. Degenerative lumbosacral changes. Moderate to large fecal loading. Dictated by: Lm Clement M.D. on 02/23/2025 at 12:32 Approved by: Lm Clement M.D. on 02/23/2025 at 12:33 CT scan - abdomen/pelvis: Radiologist's Impression: [address] [address] [address] Scan Report Signed Patient: Thomas Ann MR#: [id number] : 1935 Acct:[id number] Age/Sex: 89 / M Date of Service: 02/23/25 Loc: ED Accession Number: [id number] Procedure: CT pelvis wo con Ordering Provider: Gerson Brown D.O. PROCEDURE: CT PEL WO CON INDICATIONS: per ct findings - abnormal hip TECHNIQUE: Noncontrast 3 mm axial sections acquired through the bony pelvis, with coronal and sagittal reformatting. COMPARISON: [facility], CT, CT HEAD/BRAIN WO CON, 02/23/2025, 12:16. [facility], CR, XR PELVIS 1-2V, 02/23/2025, 12:12. FINDINGS: Image quality: Excellent. Bones: No displaced fractures are seen. No hip dislocation. Significant lower lumbar spine degenerative change is partially seen. Soft tissues: Atherosclerotic calcification is noted. No dilated loops of small bowel are seen. No significant colonic abnormality is seen. No enlarged lymph nodes are seen. No bladder wall thickening is seen. IMPRESSION: No acute fracture or dislocation. Significant lower lumbar spine degenerative change. ECG Data Interpretation: Afib RVR HR 103 DC undetermined QRS [address]-t wave change Unchanged from 02/21/25 MDM Narrative Medical decision making narrative: All lab work, vital signs, nurse triage note, medication list, previous ER visits, and all imaging studies reviewed. WBC 6.3 globin 9.4 platelet 327 INR 1.6 sodium 145 potassium 4.0 chloride 112 CO2 23 BUN 27 creatinine 0.95 glucose 110 1st set troponin 0.035 2nd set 0.025 BNP 4630 lipase 87 chest x-ray showed no pneumothorax airspace consolidation or pleural effusion. Mediastinal postsurgical changes and sternotomy wires. Normal heart size degenerative osseous findings. CT head showed no acute process. Pelvic x-ray indeterminate appearance of the femoral necks due to position grossly displaced fractures identified no dislocation. Degenerative lung it goes sacral changes. Moderate to large fecal loading. Diltiazem 10 mg IV, and miralax given here in ER. Differential diagnosis CVA hemorrhage, stemi, nstemi, pneumonia, sepsis, uti, fracture. Case d/w who has graciously accepted pt for inpatient admission. Discharge Plan Departure Patient Disposition: Admitted as Observation Clinical Impression: Atrial fibrillation, Multiple falls Admit Date/Time: 02/23/25 16:07 Admit Provider: Kevin Sanderson
--- NOTE | 2025-02-23 12:09 | DI.RAD.S_ITS ---
PROCEDURE: XR CHEST 1V INDICATIONS: fall TECHNIQUE: One view of the chest was acquired. COMPARISON: [facility] [place] [facility], CR, XR CHEST 1V, 02/21/2025, 21:42. [facility] [place] [facility], CR, XR CHEST 1V, 02/16/2025, 6:58. FINDINGS AND IMPRESSION: On this single view study, no pneumothorax, airspace consolidation, or pleural effusion is seen. Mediastinal postsurgical changes and sternotomy wires. Normal heart size. Degenerative osseous findings. Dictated by: Lm Clement M.D. on 02/23/2025 at 12:33 Approved by: Lm Clement M.D. on 02/23/2025 at 12:34
[2025-02-23 12:11] LABS: Add Manual Diff / Slide Review NO; Hematocrit 29.5 % (41-53); Hemoglobin 9.4 g/dL (13.5-17.5); Lymphocytes Absolute Auto 1500 /uL (1100-4500); Mean Corpuscular HGB Conc 31.8 % (30-36); Mean Corpuscular Hemoglobin 24.5 PG (26-34); Mean Corpuscular Volume 77.0 fL (80-100); Platelet Count 327 X10^3/uL (150-400)
[2025-02-23 12:13] LABS: INR 1.6 (0.9-1.3); Prothrombin Time 17.8 SECONDS (9.4-12.5)
[2025-02-23 12:16] LABS: PTT Partial Thromboplastin Tim 31 SECONDS (25.1-36.5)
[2025-02-23 12:18] LABS: Alanine Aminotransferase 13 IU/L (<50); Albumin 3.8 g/dL (3.5-5.0); Albumin Globulin Ratio 1.4 (1.0-2.8); Alkaline Phosphatase 86 U/L (38-126); Blood Urea Nitrogen 27 mg/dL (9-20); Calcium 9.2 mg/dL (8.4-10.2); Carbon Dioxide 23 mmol/L (22-32); Chloride 112 mmol/L (98-107); Creatine Kinase 116 U/L (55-170); Estimated Glomerular Filt Rate > 60 mL/min (>60); Globulin 2.8 g/dL (1.7-4.1); Glucose 110 mg/dL (70-99); HEMOLYSIS < 15 (0-50); Lipase 87 U/L (23-300); Magnesium 1.9 mg/dL (1.6-2.3); Potassium 4.0 mmol/L (3.4-5.1); Sodium 145 mmol/L (137-145); Total Protein 6.6 g/dL (6.3-8.2)
[2025-02-23 12:29] LABS: NT-proBNP (BNP-Adult 18+) 4630 pg/mL (<450); Troponin I 0.035 ng/mL (0.01-0.034)
--- NOTE | 2025-02-23 12:51 | EKG_ITS ---
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
--- NOTE | 2025-02-23 14:55 | DI.CT.S_ITS ---
PROCEDURE: CT PEL WO CON INDICATIONS: per ct findings - abnormal hip TECHNIQUE: Noncontrast 3 mm axial sections acquired through the bony pelvis, with coronal and sagittal reformatting. COMPARISON: [facility], CT, CT HEAD/BRAIN WO CON, 02/23/2025, 12:16. [facility], CR, XR PELVIS 1-2V, 02/23/2025, 12:12. FINDINGS: Image quality: Excellent. Bones: No displaced fractures are seen. No hip dislocation. Significant lower lumbar spine degenerative change is partially seen. Soft tissues: Atherosclerotic calcification is noted. No dilated loops of small bowel are seen. No significant colonic abnormality is seen. No enlarged lymph nodes are seen. No bladder wall thickening is seen. IMPRESSION: No acute fracture or dislocation. Significant lower lumbar spine degenerative change. Dictated by: Pietro Gusman M.D. on 02/23/2025 at 14:21 Approved by: Pietro Gusman M.D. on 02/23/2025 at 14:22
[2025-02-23 15:30] LABS: Troponin I 0.025 ng/mL (0.01-0.034)
[2025-02-23 15:56] LABS: Ictotest Urine Negative (Negative)
--- NOTE | 2025-02-23 16:32 | CM.IDA ---
Initial DCP Assessment Patient is 89 y/o male who presents to the ED via EMS due to concern for recent GLF on thinners. Patient has had several recent GLFs per EMS for lift assist. Patient was in RVR Afib upon transport to ED. Patient has hx of Parkinson's, patient is DNR with selective tx and /DPOA is interested in Hospice. Patient's PCP is Dr. Megan Quarles, patient has Medicare Part A and Blue Cross Blue Shield insurance. ASSOCIATE SALES enters room to meet with patient and spouse, present in room is patient, spouse, and patient's neighbor Sonia. Patient presents as pleasantly confused. Patient's spouse and neighbor answer all questions. Patient resides in [place] with spouse. It is reported that they have noticed a significant decline in the last several months. It is reported that patient has had an increase in falls and forgets to use his FWW, patient will often get up in the middle of the night to use the bathroom and not use his FWW. Patient's spouse assists with ADLs, patient has a caregiver through [facility] 2 days a week ([place]). Spouse does not recall the name of patient's [facility] manager rn case, ASSOCIATE SALES calls [facility] and leaves requesting information regarding this. Spouse reports that coverage for caregiver costs are on a sliding scale. ASSOCIATE SALES discusses increasing caregiver hours and she indicates agreement. Patient and spouse have good supports from long time neighbors and patient has three sons that reside in [place] who plan to visit tomorrow. [facility] Therapist Dylan Self is also involved and checking in on patient. Patient's spouse endorses preference for patient to stay home and endorses preference for comfort care and referral with [facility] . It is reported that patient was referred about a year ago but did not meet criteria at that time. ASSOCIATE SALES reviews patient with ED provider and it is reported that patient has been accepted OBS by hospitalist due to concern for GLFs and AFib. ASSOCIATE SALES calls [facility] and leaves regarding referral and puts in order for Hospice, ASSOCIATE SALES to fax referral and clinicals to [facility] . ASSOCIATE SALES provides spouse with Hospice brochure and lists of caregivers if needed, spouse endorses she has copy of senior resource guide. It is reported by spouse that patient will likely need BLS or cabulance upon discharge. Plan: patient admitted as OBS for further treatment and evaluation, pending [facility] referral, DCP to f/u with [facility], Community [facility] Therapist to f/u with patient and family upon d/c. SUSHMA [place] Discharge Planning/Care Management CM Discharge Assessment Start: 02/23/25 16:18 Freq: Status: Active Protocol: Document 02/23/25 16:19 LN (Rec: 02/23/25 16:26 LN [id number]) Discharge Planning Assessment Assigned Discharge SUSHMA [place] Customs Inspector Provider Dr. Quarles Insurance BCBS,Medicare DPOA/Assigned Verny Seth/Spouse Designee Name Contact Information [phone] Advance Directives? Yes: POLST Advance Directives Yes: POLST on File History Provided By Friend,Significant Other,Medical Record Has Patient been Yes admitted in last 30 days? Comment Patient was admitted from 02/04/25-02/05/25 Prior Living House Arrangements Household Members spouse Type of Relies on Others transporation used prior to admit Independent with ADL No 's Is patient alert and No oriented? Needs Assistance Bathing,Grooming,Meal Prep,Managing Medications,Home With Chores / Shopping DME Already Rented / FWW / Walker Owned Comment Preference for Hospice referral Discharge Plan Home Transportation BLS Arrangement Referrals Initiated Other Additional Comment [facility] referral
--- NOTE | 2025-02-23 17:31 | P.HP_ITS ---
History of Present Illness History of Present Illness Chief complaint: GLF +thinners cog decline Narrative: HPI: This patient was an 89-year-old male with a history of cognitive impairment many relating to dementia. He was at home with his . Apparently has been through the ER several times recently with falls. In addition he was discharged from the hospital just at the end of January on the . The patient was atrial fibrillation, it was on Eliquis. He was a history of bypass grafting, hypertension, Parkinson's, and dyslipidemia. The patient was pleasant denies any pain or specific injury. The etiology of his more progressive falls has been unclear. It was felt that he was unsafe to return home with his high risk of recurrent falls and injury. He denies falls related to tripping, and also denies fainting or passing out. Last hospital discharge: 02/05 ED visits: 02/16, 02/21, today. ROS: All else reviewed and otherwise unremarkable except as noted in the history and physical. O: NAD, alert and oriented to person, fluent speech, calm. Cachectic. CABG scar. He appears volume depleted with very dry oral mucosa. Normocephalic skull, EOMI, anicteric sclera, symmetric pupils. Oropharynx unremarkable, no droop. Neck supple, midline trachea, no adenopathy. Lungs clear, normal rate and effort. Heart regular, no murmur gallop or rub. Abdomen is soft, non distended and non tender. Extremities are free of edema. Skin is free of rash or lesions. Joints are not swollen or deformed. Judgment appears to be abnormal. IMAGING: Pelvis CT: No acute fracture or dislocation. Significant lower lumbar spine degenerative change. Chest x-ray: On this single view study, no pneumothorax, airspace consolidation, or pleural effusion is seen. Mediastinal postsurgical changes and sternotomy wires. Normal heart size. Degenerative osseous findings. Head CT: No acute intracranial pathology. Pelvis x-ray: Indeterminate appearance of the femoral necks due to position. No grossly displaced fracture is identified. No dislocation. If there is high concern, consider repeat two-view radiograph versus CT. Degenerative lumbosacral changes. Moderate to large fecal loading. February 21 imaging: Chest x-ray: No acute cardiopulmonary abnormality is seen. Head CT: No acute intracranial pathology. No fracture or hemorrhage. Cervical spine CT: No displaced fracture or traumatic subluxation. A/P: 1. Frequent falls, unclear cause. 2. CAD with history of CABG, stable. 3. Chronic atrial fibrillation, stable. On chronic anticoagulation. 4. Dementia, active. 5. Hypothyroidism, stable. 6. Parkinson's, active. 7. Volume depleted clinically, active PLAN: -telemetry to rule out arrhythmia or bradycardia -hold anticoagulation, not a great candidate given his falls. -continue Parkinson's medications -PT and OT consults, anticipate that he will need a different level of care than at home with his . -IVF Default to full resuscitation Anticipate 1 midnight in the hospital, observation status. 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) Syncope History of heart attack Bradycardia Dementia Bilateral renal masses Atrial fibrillation BPH w urinary obs/LUTS Bilateral renal cysts Vision disorder Hearing deficit Chronic back pain (~2005) CAD (coronary artery disease) Surgical History Hx of CABG Anesthesia History of spinal surgery (~2007) History of knee replacement, total (~2005) History of coronary artery bypass, five (~2010) Family History Father Hypertension Heart disease Social History marital status: household members: spouse alcohol intake: current substance use type: does not use Meds Home Medications and Allergies Home Medications ?Medication ?Instructions ?Recorded ?Confirmed ?Type lidocaine 4 % topical patch 1 patch topical DAILY PRN back 11/27/23 01/23/25 Rx pain #10 ea Disabled Parking Permit #1 ea 03/30/24 01/23/25 Rx metoprolol succinate 25 mg 12.5 mg PO DAILY 04/15/24 0 01/23/25 History tablet,extended release 24 hr carbidopa 25 mg-levodopa 100 mg 1.5 tab PO TID 5 01/23/25 History tablet tamsulosin 0.4 mg capsule 0.8 mg (2 x 0.4 mg) PO DAILY 07/20/24 01/23/25 Rx prevent urinary blockage #180 caps apixaban 5 mg tablet (Eliquis) 5 mg PO BID Prevent str saurabh in 07/27/24 01/23/25 Rx atrial fibrillation #180 tabs mecobalamin (vitamin B12) PO 10/24/24 01/23/25 History olopatadine 0.2 % eye drops 1 drp EYE-RIGHT DAILY PRN itching 10/24/24 01/23/25 Rx (Pataday Once Daily Relief) #2.5 mL esomeprazole magnesium 20 mg 20 mg PO DAILY #90 caps 0 11/17/24 01/23/25 Rx capsule,delayed release levothyroxine 112 mcg tablet 112 mcg PO DAILY #90 tabs 12/29/24 01/23/25 Rx Allergies Allergy/AdvReac Type Severity Reaction Status Date / Time No Known Drug Allergies Allergy Verified 02/21/25 19:06 Exam Vital Signs (past 8 hours): - 02/23/25 11:51 02/23/25 11:53 02/23/25 11:53 Temperature Pulse Rate 64 Respiratory Rate 16 Blood Pressure 123/80 Pulse Oximetry Oxygen Delivery Method 02/23/25 11:54 02/23/25 12:00 02/23/25 12:00 Temperature 97.8 F Pulse Rate 124 H 100 H Respiratory Rate 20 18 Blood Pressure 123/80 110/69 Pulse Oximetry 99 100 Oxygen Delivery Method Room Air 02/23/25 12:25 02/23/25 12:25 02/23/25 12:30 Temperature Pulse Rate 103 H 104 H Respiratory Rate 12 15 Blood Pressure 121/60 Pulse Oximetry 97 100 Oxygen Delivery Method 02/23/25 12:30 02/23/25 13:00 02/23/25 13:00 Temperature Pulse Rate 111 H Respiratory Rate 18 Blood Pressure 105/55 L 127/57 L Pulse Oximetry 100 Oxygen Delivery Method 02/23/25 13:30 02/23/25 13:30 02/23/25 13:50 Temperature Pulse Rate 122 H 97 H Respiratory Rate Blood Pressure 130/88 130/88 Pulse Oximetry 100 Oxygen Delivery Method 02/23/25 13:53 02/23/25 13:53 02/23/25 14:00 Temperature Pulse Rate 89 73 Respiratory Rate 50 H Blood Pressure 140/60 Pulse Oximetry 99 99 Oxygen Delivery Method 02/23/25 14:00 02/23/25 14:30 02/23/25 14:30 Temperature Pulse Rate 81 Respiratory Rate 19 Blood Pressure 100/54 L 121/63 Pulse Oximetry 100 Oxygen Delivery Method 02/23/25 15:00 02/23/25 15:00 02/23/25 15:12 Temperature Pulse Rate 73 98 H Respiratory Rate 12 13 Blood Pressure 112/68 Pulse Oximetry 100 100 Oxygen Delivery Method 02/23/25 15:12 02/23/25 15:30 02/23/25 15:30 Temperature Pulse Rate 101 H Respiratory Rate 33 H Blood Pressure 114/64 133/66 Pulse Oximetry 100 Oxygen Delivery Method 02/23/25 16:00 02/23/25 16:00 02/23/25 16:30 Temperature Pulse Rate 89 113 H Respiratory Rate 15 16 Blood Pressure 133/65 Pulse Oximetry 98 100 Oxygen Delivery Method 02/23/25 16:30 02/23/25 17:00 02/23/25 17:01 Temperature Pulse Rate 85 Respiratory Rate 15 Blood Pressure 133/73 133/59 L Pulse Oximetry 100 Oxygen Delivery Method 02/23/25 17:01 Temperature Pulse Rate 89 Respiratory Rate 14 Blood Pressure Pulse Oximetry 100 Oxygen Delivery Method Oxygen Delivery Method Room Air Objective Labs 02/23/25 11:50 02/23/25 11:50 Labs: Laboratory Results - last 24 hr 02/23/25 02/23/25 02/23/25 11:50 14:37 15:33 WBC 6.3 RBC 3.83 L Hgb 9.4 L Hct 29.5 L MCV 77.0 L MCH 24.5 L MCHC 31.8 RDW 18.8 H Plt Count 327 Neut % (Auto) 67.7 Lymph % (Auto) 23.7 L [place] % (Auto) 6.5 Eos % (Auto) 1.1 L Baso % (Auto) 1.0 Neut # (Auto) 4300 Lymph # (Auto) 1500 [place] # (Auto) 400 Eos # (Auto) 100 Baso # (Auto) 100 PT 17.8 H INR 1.6 H APTT 31 Sodium 145 Potassium 4.0 Chloride 112 H Carbon Dioxide 23 BUN 27 H Creatinine 0.95 Estimated GFR > 60 BUN/Creatinine Ratio 28.4 H Glucose 110 H Calcium 9.2 Magnesium 1.9 Total Bilirubin 0.7 AST 37 ALT 13 Alkaline Phosphatase 86 Total Creatine Kinase 116 Troponin I 0.035 H 0.025 NT-Pro-B Natriuret Pep 4630 H Total Protein 6.6 Albumin 3.8 Globulin 2.8 Albumin/Globulin Ratio 1.4 Lipase 87 Ur Bilirubin Confirm Negative Assessment & Plan Time-Based Coding :: [TOTAL MINUTES] spent with patient and on the chart (including review of chart, obtaining history, exam, reviewing outside data, placing orders, documenting exam and treatment plan, and counseling patient) on [DATE].
[2025-02-23] MEDS: SODIUM CHLORIDE 0.9% 1,000 ML 75 ML IV (18:14)
[2025-02-24 05:00] VITALS: BP 121/70; PULSE 77; RESP 18; TEMP 36.3; O2SAT 100
[2025-02-24 06:05] LABS: Add Manual Diff / Slide Review NO; Hematocrit 23.9 % (41-53); Hemoglobin 7.8 g/dL (13.5-17.5); Lymphocytes Absolute Auto 1900 /uL (1100-4500); Mean Corpuscular HGB Conc 32.5 % (30-36); Mean Corpuscular Hemoglobin 24.7 PG (26-34); Mean Corpuscular Volume 75.8 fL (80-100); Platelet Count 273 X10^3/uL (150-400)
[2025-02-24 06:17] LABS: Blood Urea Nitrogen 26 mg/dL (9-20); Calcium 8.1 mg/dL (8.4-10.2); Carbon Dioxide 23 mmol/L (22-32); Chloride 111 mmol/L (98-107); Estimated Glomerular Filt Rate > 60 mL/min (>60); Glucose 94 mg/dL (70-99); HEMOLYSIS < 15 (0-50); Potassium 3.6 mmol/L (3.4-5.1); Sodium 140 mmol/L (137-145)
[2025-02-24 06:37] LABS: Labcorp Creatine Kinase MB 4.0 ng/mL (0.0-10.4)
[2025-02-24 08:00] VITALS: BP 116/71; PULSE 92; RESP 16; TEMP 36.2; O2SAT 100
[2025-02-24] MEDS: SODIUM CHLORIDE 0.9% FLUSH 10 ML IV (08:08)
[2025-02-24] MEDS: SODIUM CHLORIDE 0.9% 1,000 ML 75 ML IV (08:08)
--- NOTE | 2025-02-24 10:51 | CM.DPC ---
PINA spoke with Kat with Hospice. Per Kat, she will reach out to PT's family today to review goals of care.
--- NOTE | 2025-02-24 11:05 | PT.IIE ---
Surgical History (Last Reviewed 02/23/25 @ 18:06 by Kevin Sanderson MD) Anesthesia History of coronary artery bypass, five (~2010) History of knee replacement, total (~2005) History of spinal surgery (~2007) Hx of CABG Medical History (Last Reviewed 02/23/25 @ 18:06 by Kevin Sanderson MD) Atrial fibrillation 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) Bilateral renal cysts Bilateral renal masses BPH w urinary obs/LUTS Bradycardia CAD (coronary artery disease) Chronic back pain (~2005) Dementia Hearing deficit History of heart attack Syncope Vision disorder Physical Therapy Inpatient Evaluation/Re-Eval M1 PT/OT-IP Prior Functional Status Start: 02/24/25 14:00 Freq: NEEDED Status: Active Protocol: Document 02/24/25 11:05 AB (Rec: 02/24/25 14:14 AB [id number]) Medical Review Prior Functional Status Medical History Yes Reviewed Communication able to make needs known Mobility and Gait pt with decrease memory and cannot provide accurate info; stated that he is able to ambulate using FWW Social History Household Members spouse Living Arrangements House Number of Stairs To pt stated that he lives alone but per EMR, lives with Enter/Railing? spouse Home Environment Standard Height Toilet,Walk in Shower,Built-In Shower Seat Home Equipment Front Wheel Walker M2 PT-IP Current Condition Start: 02/24/25 14:00 Freq: NEEDED Status: Active Protocol: Document 02/24/25 11:05 AB (Rec: 02/24/25 14:14 AB [id number]) Physical Therapy Current Condition Current Condition Evaluation Date 02/24/25 Treatment Diagnosis GLF; A-fib; difficulty in walking Onset Date 02/23/25 M3 PT-IP Subjective Start: 02/24/25 14:00 Freq: NEEDED Status: Active Protocol: Document 02/24/25 11:05 AB (Rec: 02/24/25 14:14 AB [id number]) Subjective Physical Therapy Visit Type Type Initial Evaluation Visit Start Time 11:05 Visit Stop Time 11:30 Number of SCARRER Visits 0 Physical Therapy Visit Comments Patient Comments agreeable to do PT M4 PT-IP Mobility and Gait Start: 02/24/25 14:00 Freq: NEEDED Status: Active Protocol: Document 02/24/25 11:05 AB (Rec: 02/24/25 14:14 AB [id number]) PT-Bed Mobility Assessment Supine to Sit Supine to Sit Minimal Assistance,Total Assistance,Head of Bed Elevated,Bedrails Sit to Supine Sit to Supine Standby Assistance PT-Transfer Assessment Sit to and From Stand Sit to and from Moderate Assistance,1 Person Assistance,Use of Upper Stand Extremities Equipment Transfer Assistive Gait Belt,Large Based Quad Cane Device Orthotic/Prosthetic No Devices or Brace: Transfers Transfer Destination Bed,Chair Transfer Technique ambulated Transfer Ability Level of Assist Minimal Assistance,Moderate Assistance,1 Person Assistance,Use of Upper Extremities Comments Mobility Comments pt sitting on the chair and agreed to do PT. sit to stand from chair mod A and cues. (+) trunk retrolean requiring mod A for steadiness using FWW for support. Pt ambulated in room ~ 30 ft using FWW min to mod A and max cues. pt sat on EOB. completed sit to supine SBA, min A for supine to sit. sit to stand from EOB. assisted pt with hygiene care and brief change. mod A and able to step transfer to chair using fWW mod A and max cues. positioned pt on the chair. call light and table placed within reach. Gait Assessment Gait Gait Assistance Minimum Assistance,Moderate Assistance,1 Person Assist Required: Distance (Feet) 30 Able to Maintain Yes Weight Bearing Status During Gait Assistive Devices Assistive Device Gait Belt,Front Wheeled Walker Orthotic/Prosthetic No Devices or Brace: Gait Deviations General Gait Pattern Ataxic,Decreased Stride Length,Decreased Feet Clearance ,Step-to Gait Factors Limiting Gait Function Factors Limiting Decreased Activity Tolerance,Decreased Strength, Gait Function Difficulty Following Directions,Limited Range of Motion ,Poor Balance,Poor Safety Awareness PT-Balance Assessment Sitting Balance and Reactions Static Sitting Fair Balance Ability Dynamic Sitting Fair Balance Ability Standing Balance and Reactions Static Standing Fair Balance Ability Dynamic Standing Poor Balance Ability Device Used FWW M5 PT-IP Objective Assessments Start: 02/24/25 14:00 Freq: NEEDED Status: Active Protocol: Document 02/24/25 11:05 AB (Rec: 02/24/25 14:14 [id number]) Orientation Orientation/Cognition Level of Alertness Confusional State Orientation Name Safety Awareness Decreased Safety Awareness Memory Description Short Term Impaired,Semiconductor Equipment Technician Impaired Gross Range of Motion Lower Extremity ROM Assessment Within Functional Limits Strength Lower Extremity Strength Assessment Within Functional Limits Muscle Tone Muscle Tone WNL Yes M6 PT-IP Treatment Start: 02/24/25 14:00 Freq: NEEDED Status: Active Protocol: Document 02/24/25 11:05 AB (Rec: 02/24/25 14:14 AB [id number]) Physical Therapy Treatment Education Education Provided Safety M7 PT-IP Assessment and Plan Start: 02/24/25 14:00 Freq: NEEDED Status: Active Protocol: Document 02/24/25 11:05 AB (Rec: 02/24/25 14:14 AB [id number]) PT Summary Assessment and Plan Potential Rehabilitation Fair Potential Status of Condition Evolving at Evaluation Summary Impairments Pain,ROM,Strength,Balance,Coordination,Sensation,Tone, Cognition,Bed Mobility,Transfers,Gait,Activity Tolerance Assessment Summary pt is an 89 y/o M who is admitted for A-fib. pt with h /o falls. Pt plans to d/c to hospice care but PT eval requested to determined mobility and d/c needs. pt requiring min A for bed mobility, mod A for transfers and min to mod A for ambulation using FWW. presents with increase trunk retro leaning in standing. pt required one step instructions with all tasks and with decrease cognition. Pt with dx dementia and PD contributing to current level of function. pt will require 24/7 assist. Pt seen x 1 and will d/c to hospice care. nursing staff to mobilize pt while here in the hospital. Goals Bed Mobility Goal Standby Assistance Transfer Goal Standby Assistance,Front Wheeled Walker Gait Goal Standby Assistance,Front Wheel Walker Gait Distance 100 Days to Meet Goals 1 Frequency of Treatment Frequency Of Discharge Treatment Treatment Plan Physical Therapy Bed Mobility Training,Transfer Training,Gait Training, Treatment Plan Therapeutic Exercise,Balance Retraining,Discharge Planning,Hot or Cold Pack,Neuromuscular Re-ed, Coordination Retraining Precautions Other Precautions falls Recommendations To Nursing Amount of Assist 1 Person Assist Needed Discharge Recommendations PT Discharge Home with 24/7 Assist Available Recommendations Other Discharge pt plans to d/c to hospice care Recommendations Transportation Needs Private Vehicle,Wheelchair/Cabulance at Discharge - PT assist 1
--- NOTE | 2025-02-24 11:35 | OT.IPNOTE ---
Discharge OT eval orders as pt to go on Hospice.
[2025-02-24 12:00] VITALS: BP 100/61; PULSE 67; RESP 16; TEMP 36.2; O2SAT 100
--- NOTE | 2025-02-24 15:02 | P.DS_ITS ---
History of Present Illness History of Present Illness Date Patient Seen: 02/24/25 Time Patient Seen: 09:09 Chief complaint: GLF +thinners cog decline Narrative: This patient was an 89-year-old male with a history of cognitive impairment many relating to dementia. He was at home with his . Apparently has been through the ER several times recently with falls. In addition he was discharged from the hospital just at the end of January on the . The patient was atrial fibrillation, it was on Eliquis. He was a history of bypass grafting, hypertension, Parkinson's, and dyslipidemia. The patient was pleasant denies any pain or specific injury. The etiology of his more progressive falls has been unclear. It was felt that he was unsafe to return home with his high risk of recurrent falls and injury. He denies falls related to tripping, and also denies fainting or passing out. Last hospital discharge: 02/05 ED visits: 02/16, 02/21, today. ROS: All else reviewed and otherwise unremarkable except as noted in the history and physical. Discharge Providers Provider Date of admission: 02/23/25 16:07 Discharge Date: 02/24/25 Primary care physician: Vidhya Quarles DO Consults: 02/23/25 12:02 Consult to [facility] [place] - Watch Leader Stat Comment: Watch Leader Consult needed for:: Unable to care for self Comment: family unable to provide adequate care. wants hospice consult. 02/23/25 16:31 Consult to Hospice Referral Routine Comment: 02/23/25 17:30 Consult to Occupational Therapy Evaluate & Treat Comment: Physician Instructions: Evaluate and treat Consult to Physical Therapy Evaluate & Treat Comment: Physician Instructions: Evaluate and Treat Discharge provider: Scot Camejo MD Summary Hospital Course Discharge Diagnosis: 1. Frequent falls, unclear cause. 2. CAD with history of CABG, stable. 3. Chronic atrial fibrillation, stable. On chronic anticoagulation. 4. Dementia, active. 5. Hypothyroidism, stable. 6. Parkinson's, active. 7. Volume depleted clinically, resolved 8. Chronic microcytic anemia Hospital Course: The patient was admitted and observed overnight. Family expressed interest in hospice care. Further medical evaluation of anemia and other medical issues was not pursued given plan for hospice care. He was evaluated by physical therapy to assess home needs and deemed to be a 1 person assist. A walker was recommended and provided. Family discussed goals of care with case management and on admission and wished hospice care. Further arrangements will be made on an outpatient basis with referral placed. No other issues arose. The patient remained medically stable throughout the hospitalization. Status at Discharge Cognitive/behavioral status at discharge: at baseline, confused Functional status at discharge: uses cane/walker Overall status at discharge: patient is back to baseline Time Spent with Patient Time spent: Greater than 30 minutes Exam Vital Signs (past 8 hours): - 02/24/25 08:00 02/24/25 12:00 Temperature 97.1 F L 97.1 F L Pulse Rate 92 H 67 Respiratory Rate 16 16 Blood Pressure 116/71 100/61 Pulse Oximetry 100 100 Oxygen Flow Rate 0 0 Oxygen Delivery Method Room Air Oxygen Flow Rate 0 Narrative Exam Narrative: NAD, alert and oriented to person, fluent speech, calm. Cachectic. CABG scar. He is alert, pleasant and answers questions appropriately, though oriented person only, stating that he is in [place], [place], and the year is 1979. Normocephalic skull, EOMI, anicteric sclera, symmetric pupils. Oropharynx unremarkable, no droop. Neck supple, midline trachea, no adenopathy. Lungs clear, normal rate and effort. Heart regular, no murmur gallop or rub. Abdomen is soft, non distended and non tender. Extremities are free of edema. Skin is free of rash or lesions. Joints are not swollen or deformed. Judgment appears to be abnormal. Objective Imaging *: Radiologist's impression: Pelvis CT: No acute fracture or dislocation. Significant lower lumbar spine degenerative change. Chest x-ray: On this single view study, no pneumothorax, airspace consolidation, or pleural effusion is seen. Mediastinal postsurgical changes and sternotomy wires. Normal heart size. Degenerative osseous findings. Head CT: No acute intracranial pathology. Pelvis x-ray: Indeterminate appearance of the femoral necks due to position. No grossly displaced fracture is identified. No dislocation. If there is high concern, consider repeat two-view radiograph versus CT. Degenerative lumbosacral changes. Moderate to large fecal loading. Labs 02/24/25 05:12 02/24/25 05:12 Labs: Laboratory Results - last 24 hr 02/23/25 02/23/25 02/23/25 11:50 14:37 15:33 WBC RBC Hgb Hct MCV MCH MCHC RDW Plt Count Neut % (Auto) Lymph % (Auto) [facility] % (Auto) Eos % (Auto) Baso % (Auto) Neut # (Auto) Lymph # (Auto) [facility] # (Auto) Eos # (Auto) Baso # (Auto) Sodium Potassium Chloride Carbon Dioxide BUN Creatinine Estimated GFR BUN/Creatinine Ratio Glucose Calcium CK-MB (CK-2) 4.0 Troponin I 0.025 Ur Bilirubin Confirm Negative 02/24/25 05:12 WBC 6.2 RBC 3.15 L Hgb 7.8 L Hct 23.9 L MCV 75.8 L MCH 24.7 L MCHC 32.5 RDW 18.4 H Plt Count 273 Neut % (Auto) 58.3 Lymph % (Auto) 31.1 [facility] % (Auto) 7.0 Eos % (Auto) 2.5 Baso % (Auto) 1.1 Neut # (Auto) 3600 Lymph # (Auto) 1900 [facility] # (Auto) 400 Eos # (Auto) 200 Baso # (Auto) 100 Sodium 140 Potassium 3.6 Chloride 111 H Carbon Dioxide 23 BUN 26 H Creatinine 0.74 Estimated GFR > 60 BUN/Creatinine Ratio 35.1 H Glucose 94 Calcium 8.1 L CK-MB (CK-2) Troponin I Ur Bilirubin Confirm [facility] Medical History Atrial fibrillation 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) Bilateral renal cysts Bilateral renal masses BPH w urinary obs/LUTS Bradycardia CAD (coronary artery disease) Chronic back pain (~2005) Dementia Hearing deficit History of heart attack Syncope Vision disorder Surgical History Anesthesia History of coronary artery bypass, five (~2010) History of knee replacement, total (~2005) History of spinal surgery (~2007) Hx of CABG Family History Father Hypertension Heart disease Social History marital status: household members: spouse Smoking Status: Never smoker alcohol intake: current substance use type: does not use Discharge Plan Discharge Plan Patient Disposition: Home Provider Discharge Comment: Followup with Dr. Quarles in 1 week Discharge orders & Medications Prescriptions: Continued Eliquis 5 mg tablet 5 mg PO BID Qty: 180 3RF esomeprazole magnesium 20 mg capsule,delayed release(DR/EC) 20 mg PO DAILY Qty: 90 3RF levothyroxine 112 mcg tablet 112 mcg PO DAILY Qty: 90 3RF Rx Instructions: 112 mcg orally daily; lidocaine 4 % adhesive patch,medicated 1 patch topical DAILY PRN (Reason: back pain) Qty: 10 11RF metoprolol succinate 25 mg tablet extended release 24 hr 12.5 mg PO DAILY tamsulosin 0.4 mg capsule 0.8 mg PO DAILY Qty: 180 3RF mecobalamin (vitamin B12) PO Patient Comments: Children's liquid olopatadine [Pataday Once Daily Relief] 0.2 % drops 1 drp EYE-RIGHT DAILY PRN (Reason: itching) Qty: 2.5 0RF carbidopa-levodopa 25-100 mg tablet 1.5 tab PO TID memantine 10 mg tablet 10 mg PO BID No Action (DME) Disabled Parking Permit See Rx Instructions .ROUTE .MEDSUPPLY Qty: 1 0RF Rx Instructions: Valid for 5 years Follow up/Referrals: Vidhya Quarles DO [Primary Care Provider, Medical] Visit Report/Discharge Packet Stand Alone Forms: Patient Portal/API, Stroke Signs & Symptoms Discharge Data Primary Care Provider: Vidhya Quarles Attending Provider: Kevin Sanderson Admit Date/Time: 02/23/25 16:07 Quality MIPS - Admit I confirm the patient?s Advance Care Plan is present, Code status is documented, Surrogate decision maker is in patient?s record [If Yes, STOP here]: Yes MIPS - Meds 'Current medications' to include all prescriptions, [id number] products, herbals, cannabis/cannabidiol products, and vitamin/mineral/dietary (nutritional) supplements. I have utilized all available resources to obtain, update, or review the patient?s current medications. [If Yes, STOP here]: Yes MIPS - DC The patient has a history of heart transplant or Left Ventricular Assist Device (LVAD). If yes, STOP here.: No The patient has current or prior documentation of left ventricular ejection fraction (LVEF) less than or equal to 40%, or moderate or severely depressed left ventricular systolic function.: No A. The patient was prescribed or already taking an Angiotensin-Converting Enzyme (JESSY) Inhibitor, or Angiotensin Receptor Gómez (ARB).: No B. The patient was prescribed or already taking a beta-gómez. [If Yes to Both A & B, STOP here]: Yes Patient not prescribed/taking JESSY or ARB, no reason given.: No Patient not prescribed/taking beta-gómez, no reason given.: No PROFEE Charge Codes Discharge inpatient/observation: [id number]
--- NOTE | 2025-02-24 15:30 | PT-IP ANOTE ---
PT mechelle completed this morning. manager massage department put in new PT order for dispensing FWW for pt for home use. Pt plans to d/c today. dispensed FWW to pt. pt asleep and unable to sign for FWW. No family available to sign. per leather case finisher, pt discharging via transport and no family to sign paper. FWW in room for pt and will d/c PT eval order.
--- NOTE | 2025-02-24 16:21 | CM.DPNOTE ---
DCP Note [employer] reviewed EMR per Provider, can dc today if [facility] plan arranged. [employer] spoke with pancho from hospice, can accept, SOC mid next week. can send expedited DME out this weekend. [employer] spoke with pt. eager to go home today. gave verbal permission to this [employer] to speak with either spouse or Ralph for DCP needs. [employer] attempted to speak with spouse, did not answer the phone. [employer] spoke with son Ralph, . agree with home today with hospice to follow if pt can get DME this weekend. need walker/urinal from us. [facility] to send bedside commode, wheelchair, and hospital bed. will pay for [employer] transport. pt's spouse's car currently not available. Ralph reports feeling comfortable with this plan. denies other DCP/CM needs or questions at this time. [employer] placed order for PT to dispense walker, updated PT. [employer] updated pancho at [facility]. will connect with son. [employer] faxed signed dc summary to [facility]. will send expedited request for DME. [employer] spoke with [place] at [facility], can transport between 4-430pm today. will call son for payment. [employer] updated pt/provider/RN. P: dc today home with family support and [facility] f/u. CM team will continue to follow as needed for DCP Coordination CAMRYN Prado
--- NOTE | 2025-02-24 16:50 | PC.NURSE ---
Pt discharged home at 1620, escorted off floor in wheelchair accompanied by hospital staff and cabulance team. IV removed, tele d/c'd, discharge teaching reviewed with over the phone including plan of care and follow up appointments. Patient left the room with all belongings.
== END 2025-02-24 16:51 | disposition home or self-care (01) ==
LOC: ED 12:04 → AC 16:08
PROVIDERS: Admitting Provider Hospitalist; Emergency Provider Family Medicine; Family Provider Family Medicine; PCP Family Medicine; Referring Provider Family Medicine; Visit Provider Hospitalist
DX: F02.80 Dementia in other diseases classified elsewhere, unspecified severity, without behavioral disturbance, psychotic disturbance, mood disturbance, and anxiety (principal); G20.A1 Parkinson's disease without dyskinesia, without mention of fluctuations; W19.XXXA Unspecified fall, initial encounter; Y92.009 Unspecified place in unspecified non-institutional (private) residence as the place of occurrence of the external cause; E86.9 Volume depletion, unspecified; D50.9 Iron deficiency anemia, unspecified; I48.0 Paroxysmal atrial fibrillation; I10 Essential (primary) hypertension; E78.5 Hyperlipidemia, unspecified; I25.10 Atherosclerotic heart disease of native coronary artery without angina pectoris; E03.9 Hypothyroidism, unspecified; Z95.1 Presence of aortocoronary bypass graft; Z79.01 Long term (current) use of anticoagulants; Z91.81 History of falling
CPT/HCPCS: 36415; 70450; 71045; 72170; 72192; 80048; 80053; 81003; 82550; 82553; 83690; 83735; 83880; 84484; 85025; 85610; 85730; 93005; 96361; 96374; 97162; 97530; 99284; G0378; J7030